=== PATIENT | female | born 1975 | race Caucasian/White ===

== ENCOUNTER 2017-11-30 17:17 | Emergency (ER) | payer MEDICAID, SELFPAY ==
[2017-11-30 17:18] VITALS: BP 129/87; PULSE 127; RESP 17; TEMP 36.7; O2SAT 95; BMI 20.2
--- NOTE | 2017-11-30 17:39 | ED.VISSUMM ---
- ER Visit Summary Date of Service: 11/30/17 Chief Complaint: Left lower tooth pain History of Present Illness: The patient is a 42 F who presents with acute left lower tooth pain that started today. She states she has problems with her teeth. She states her teeth are broken. She does have insurance. She states she recently got insurance. She denies fever, chills night sweats. Denies any ocular, visual auditory symptoms. Denies inability to open or close her mouth completely. She denies change in voice or difficulty swallowing or breathing. She denies a traumatic fever, murmur, SPE, IV drug use to be an immune suppressed. Please read written note for complete detail Physical Examination: Vital signs are marked for an elevated blood pressure 129/87 and heart rate 127. She appears uncomfortable. There is mild swelling near the angle of the mandible on the left. There are numerous teeth that are eroded to the gumline with exposure of the pulp. What I believe is the first left lower molar has inflammatory changes around the tooth with swelling of the gum. There is no fluctuance to suggest a periodontal abscess that would be amenable to drainage. There is no evidence of trismus. There is no evidence of Burak's angina. Trach is midline. There is no stridor. Heart is regular without murmur, gallop or rub. S1 and S2 are normal. Lungs are clear to auscultation with good movement of air bilaterally. Test Results: None are indicated Emergency Department Course and Treatment: Patient received first dose of Naprosyn, [place] and clindamycin. She was given a sheet with dental clinics that would accept her insurance. Treatment Plan: Oral antibiotics and oral analgesics and outpatient dental follow-up Disposition: Discharged home Impression: 1. Dental abscess first left lower molar 2. Multiple dental caries with exposure of pulp This note was generated with [employer] dictation software. It may contain incorrect words, spelling, and punctuation that were not noted in review of the chart prior to signing ED Disposition - Plan for ED Patient: Disposition: Home or Assisted Living Chief Complaint: Dental Instructions: Dental Abscess, ED Cavity Dental Prescriptions: Naproxen [Naprosyn] 500 mg PO BID #20 tab Clindamycin HCl [Cleocin] 300 mg PO Q6H #28 cap Referrals: Care Physician,No Primary [Primary Care Provider] - Additional Instructions: Your prescriptions were electronically transmitted to [facility].
--- NOTE | 2017-11-30 17:44 | ED.DCSUM_ITS ---
- ER Visit Summary Date of Service: 11/30/17 Chief Complaint: Left lower tooth pain History of Present Illness: The patient is a 42 F who presents with acute left lower tooth pain that started today. She states she has problems with her teeth. She states her teeth are broken. She does have insurance. She states she recently got insurance. She denies fever, chills night sweats. Denies any ocular, visual auditory symptoms. Denies inability to open or close her mouth completely. She denies change in voice or difficulty swallowing or breathing. She denies a traumatic fever, murmur, SPE, IV drug use to be an immune suppressed. Please read written note for complete detail Physical Examination: Vital signs are marked for an elevated blood pressure 129/ 87 and heart rate 127. She appears uncomfortable. There is mild swelling near the angle of the mandible on the left. There are numerous teeth that are eroded to the gumline with exposure of the pulp. What I believe is the first left lower molar has inflammatory changes around the tooth with swelling of the gum. There is no fluctuance to suggest a periodontal abscess that would be amenable to drainage. There is no evidence of trismus. There is no evidence of Burak's angina. Trach is midline. There is no stridor. Heart is regular without murmur, gallop or rub. S1 and S2 are normal. Lungs are clear to auscultation with good movement of air bilaterally. Test Results: None are indicated Emergency Department Course and Treatment: Patient received first dose of Naprosyn, [place] and clindamycin. She was given a sheet with dental clinics that would accept her insurance. Treatment Plan: Oral antibiotics and oral analgesics and outpatient dental follow-up Disposition: Discharged home Impression: 1. Dental abscess first left lower molar 2. Multiple dental caries with exposure of pulp This note was generated with [employer] dictation software. It may contain incorrect words, spelling, and punctuation that were not noted in review of the chart prior to signing ED Disposition - Plan for ED Patient: Disposition: Home or Assisted Living Chief Complaint: Dental Instructions: Dental Abscess, ED Cavity Dental Prescriptions: Naproxen [Naprosyn] 500 mg PO BID #20 tab Clindamycin HCl [Cleocin] 300 mg PO Q6H #28 cap Referrals: Care Physician,No Primary [Primary Care Provider] - Additional Instructions: Your prescriptions were electronically transmitted to [facility].
[2017-11-30] MEDS: HYDROcodone Bitartrate/Apap 5/325 Tablet PO ×2 (17:52)
[2017-11-30] MEDS: Naproxen 250 MG Tablet 500 MG PO (17:52)
[2017-11-30] MEDS: Clindamycin HCl 150 MG Capsule 300 MG PO (17:52)
== END 2017-11-30 17:56 | disposition home or self-care (01) ==
PROVIDERS: Emergency Provider Emergency Medicine
DX: K04.7 Periapical abscess without sinus (principal); K02.9 Dental caries, unspecified; K08.89 Other specified disorders of teeth and supporting structures
CPT/HCPCS: 99283

== ENCOUNTER 2019-10-16 18:02 | Emergency (ER) | payer MEDICAID, SELFPAY ==
[2019-10-16 18:03] VITALS: BP 135/95; PULSE 67; RESP 16; TEMP 36.1; O2SAT 100; BMI 19.0
--- NOTE | 2019-10-16 18:30 | EKG12_ITS ---
Test Reason : NUMBNESS/TINGLING Blood Pressure : / mmHG Vent. Rate : 058 BPM Atrial Rate : 058 BPM P-R Int : 114 ms QRS Dur : 098 ms QT Int : 432 ms P-R-T Axes : 024 053 021 degrees QTc Int : 424 ms Sinus bradycardia with sinus arrhythmia Voltage criteria for left ventricular hypertrophy Abnormal ECG Confirmed by ALIDA GARDUNO, MICKEY ([id number]), non linear editor CHARLES VIDAL ([id number]) on 10/18/2019 1:34:23 PM Referred By: BELKIS Confirmed By:MICKEY IRWIN MD
--- NOTE | 2019-10-16 18:30 | CT_ITS ---
STUDY: CT BRAIN WITHOUT CONTRAST REASON FOR EXAM: Female, 43 years old. RLE WEAKNESS/NUMBNESS, RIGHT EYE SWOLLEN SHUT, COLD SYMPTOMS SINCE MIDNIGHT RADIATION DOSAGE (If Supplied By Facility): CTDIvol = ( 44.99 ) mGy, DLP = ( 745.49 ) mGycm TECHNIQUE: Transaxial CT imaging of the brain was performed without administration of intravenous contrast material. Individualized dose optimization techniques were used for this CT. COMPARISON: No relevant priors. FINDINGS: There is significant right facial right and preseptal edema and/or soft tissue hematoma.. Normal calvarium. Globes are intact with no retroconal or intraconal masses Normal size ventricles and extra-axial spaces for the patient''s age. Normal white matter tracts of the cerebral hemispheres. Normal basal ganglia and thalami. Normal brainstem. Normal cerebellum. There is no intracranial hemorrhage. There are no findings of an acute ischemic infarction. There is mucosal thickening and soft tissue obstruction of the bilateral ostiomeatal complexes. There is edema of the turbinates. There is a 1.2 x 1 cm right maxillary sinus mucus retention cyst. CT/Brain/Head without Contrast IMPRESSION: No acute intracerebral pathology significant right facial right preseptal edema and/or soft tissue hematoma.. Pansinusitis Electronically Signed: Moiz Marshall, at 19:52 EDT Tel , Service support ,
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
[2019-10-16 18:56] LABS: Absolute Lymphocyte Count 1.61 X10^3/uL (0.83-4.51); Basophil# 0.03 X10^3/uL; Basophil% 0.5 % (0-1); Eosinophil# 0.15 X10^3/uL; Eosinophils% 2.4 % (0-5); Hematocrit 38.4 % (37-47); Hemoglobin 12.2 g/dL (12.0-15.0); Lymphocyte # 1.61 X10^3/ul (4.0); Lymphocyte % 25.5 % (19-41); Mean Corp Hgb Conc 31.8 g/dL (32-36); Mean Corpuscular Hgb 26.9 pg (27.0-32.0); Mean Corpuscular Volume 84.6 fL (81-99); Mean Platelet Vol. 10.4 fl (6.2-12.0); Monocyte% 7.9 % (0-10); NRBC Flagged by Analyzer 0 % (0-5); Neutrophil # 4.01 X10^3/uL (2.7-7.7); Neutrophil % 63.4 % (47-70); Platelet Count 255 K/mm3 (150-450); RBC Distribution Width SD 49.3 fl (35.1-43.9); Red Blood Count 4.54 M/mm3 (4.2-5.4); White Blood Count 6.3 K/mm3 (4.4-11.0)
[2019-10-16 19:10] LABS: Anion Gap 5 (5-15); BUN 9 mg/dL (7-18); BUN/Creat Ratio 15.3 RATIO (10-20); Calcium,Total 8.6 mg/dL (8.5-10.1); Chloride 106 mmol/L (98-107); Creatinine, Serum 0.59 mg/dL (0.55-1.02); EST Glomerular Filtration Rate 119 mL/min (>60); Est Glom Filt Rate - Afr Amer 144 mL/min (>60); Estimated Creatinine Clearance 111.18 ml/min; Glucose 115 mg/dL (74-106); Potassium 3.6 mmol/L (3.5-5.1); Sodium Level 140 mmol/L (136-145)
== END 2019-10-16 20:30 | disposition home or self-care (01) ==
PROVIDERS: Emergency Provider Emergency Medicine
DX: M21.371 Foot drop, right foot (principal); J06.9 Acute upper respiratory infection, unspecified; H10.31 Unspecified acute conjunctivitis, right eye; H02.841 Edema of right upper eyelid; J32.4 Chronic pansinusitis; F17.200 Nicotine dependence, unspecified, uncomplicated
CPT/HCPCS: 70450; 80048; 85025; 93005; 99285; A4216

== ENCOUNTER 2021-09-06 17:25 | Emergency (ER) | payer MEDICAID, SELFPAY ==
[2021-09-06 17:25] VITALS: BP 127/92; PULSE 85; RESP 16; TEMP 36.8; O2SAT 95; BMI 21.3
--- NOTE | 2021-09-06 17:46 | EDS_ITS ---
HPI <LAURA Moeller - Last Filed: 09/06/21 21:04> History of Present Illness Chief Complaint: Back Narrative Narrative: 45-year-old female presents with lower back pain worse on the left that started 2 days ago. No known injury or inciting event. The pain is localized to her lower back with no radiation to her abdomen or lower extremities. It it worse with movement. She denies weakness, numbness, tingling, saddle anesthesia, or bladder or bowel incontinence. Denies IVDU. No bowel changes or urinary symptoms. No fever, chills, nausea, or vomiting. Denies history of kidney stones. PFSH <LAURA Moeller Last Filed: 09/06/21 21:04> PFSH Home Medications azithromycin 250 mg PO UD #1 box 10/16/19 [Rx Last Taken Unknown] cyclobenzaprine 10 mg PO TID PRN #20 tablet 09/06/21 [Rx Last Taken Unknown] naproxen 500 mg PO BID PRN #20 tab 09/06/21 [Rx Last Taken Unknown] Allergy/AdvReac Type Severity Reaction Status Date / Time clindamycin Allergy Hives Verified 09/06/21 17:28 methadone Allergy Swelling Verified 09/06/21 17:28 Macrobid Allergy Hives Uncoded 09/06/21 17:28 Social History Smoking Status: Current every day smoker tobacco type: cigarettes ROS <LAURA Moeller - Last Filed: 09/06/21 21:04> ROS ED ROS Narrative Constitutional: Negative for fever, chills, malaise. Eyes: Negative for visual change. ENT: Negative for sore throat, ear pain, rhinorrhea. CVS: Negative for palpitations, chest pain, syncope. Respiratory: Negative for shortness of breath, cough, orthopnea. GI: Negative for abdominal pain, nausea, vomiting, diarrhea, constipation, melena, hematochezia. : Negative for dysuria, hematuria or frequency. Neuro: Negative for headache, motor/sensory dysfunction. Skin: Negative for rash, abscess, or wound. Musc: Positive for low back pain. Negative for joint pain, swelling, trauma. Heme: Negative for easy bruising, bleeding, lymphadenopathy. EXAM <LAURA Moeller Last Filed: 09/06/21 21:04> Physical Exam Narrative Exam Narrative: CONST: Patient sitting in bed appears uncomfortable. EYES: Normal inspection. ENT: Normal inspection, moist mucous membranes. NECK: Normal inspection. RESP: No respiratory distress, CTAB. CVS: Regular rate and rhythm, no murmur, no gallop. ABD: Soft and nontender, no guarding or rebound, nondistended, no hepatosplenomegaly. Back: Normal inspection, no CVA tenderness. No midline spinal tenderness, no step offs. TTP bilateral lumbar paraspinals. SKIN: Color normal, no rash, warm, dry, intact. EXTREMITIES: Normal appearance, no pedal edema. 5/5 bilateral hip flexion, knee flexion/extension, and DF/PF. Normal sensation to light touch. 2+ DP pulses. 2+ patellar and ankle reflexes. NEURO: Oriented x4. PSYCH: Normal affect. Const Vital Signs: 09/06/21 17:25 09/06/21 19:25 09/06/21 20:40 Temperature 98.2 F 98.4 F Temperature Source Oral Pulse Rate 85 88 76 Respiratory Rate 16 14 14 Blood Pressure 127/92 H 136/87 H 136/78 H Blood Pressure Mean 103 103 Pulse Ox 95 96 98 Oxygen Delivery Method Room Air Room Air <Dr. Jon Ackerman DO - Last Filed: 09/06/21 21:14> Physical Exam Const Vital Signs: 09/06/21 17:25 09/06/21 19:25 09/06/21 20:40 Temperature 98.2 F 98.4 F Temperature Source Oral Pulse Rate 85 88 76 Respiratory Rate 16 14 14 Blood Pressure 127/92 H 136/87 H 136/78 H Blood Pressure Mean 103 103 Pulse Ox 95 96 98 Oxygen Delivery Method Room Air Room Air [facility] <LAURA Moeller - Last Filed: 09/06/21 21:04> [facility] Narrative Medical decision making narrative: Patient presents with atraumatic lower back pain worse with movement. She appears well and nontoxic. Vital signs are within normal limits. She has reproducible tenderness of bilateral lumbar paraspinals and no midline tenderness. Her abdomen is soft and nontender and there is no CVA tenderness. She denies radiation into her buttock or legs and lower extremity MSPs and reflexes are intact. She has no red flag symptoms concerning for cauda equina syndrome or epidural abscess. Lumbar x-ray show no acute process. Because she was in significant pain a UA was obtained and shows no hematuria or infection. Her history and exam are not consistent with kidney stone either. She had some improvement after Toradol, Norflex, Kenalog and a lidocaine patch. I was going to prescribe her pain medication for home and checked [facility] and she frequently gets Narcan filled. She denies using drugs and states she gives the Narcan to her family. Urine drug screen is positive for THC, meth, and amphetamines. I prescribed ibuprofen and Flexeril and she was given a PCP referral. She was counseled to return for new or worsening symptoms and was discharged in stable condition. Diagnosis 1. Lumbar back pain Lab Data Labs: Laboratory Results - last 24 hr 09/06/21 09/06/21 19:40 19:40 Urine Color Yellow Urine Clarity Clear Urine pH 6.0 Ur Specific [place] 1.015 Urine Protein 15 H Urine Glucose (UA) Normal Urine Ketones Negative Urine Occult Blood Negative Urine Nitrite Negative Urine Bilirubin Negative Urine Urobilinogen 1 H Ur Leukocyte Esterase Negative Urine RBC 0 SEEN Urine WBC 0 SEEN Ur Squamous Epith Cells 0 SEEN Urine Bacteria 0 SEEN Urine Mucus 0 SEEN Urine Opiates Screen NEGATIVE Urine Methadone Screen NEGATIVE Ur Barbiturates Screen NEGATIVE Ur Phencyclidine Scrn NEGATIVE Ur Amphetamines Screen POSITIVE H U Methamphetamin-MDMA POSITIVE H U Benzodiazepines Scrn NEGATIVE Urine Cocaine Screen NEGATIVE U Cannabinoids Screen POSITIVE H Ur Drug Screen Comment Radiography Diagnostic Testing: Clinical Impression(s) from Imaging Studies Lumbar Spine X-Ray 09/06/21 18:26 IMPRESSION: Normal x-ray examination of the lumbar spine. Electronically Signed: Paul Quintanilla MD at 18:46 EST , <Dr. Jon Ackerman, DO - Last Filed: 09/06/21 21:14> [facility] Narrative Medical decision making narrative: Patient was seen and evaluated by the PA. I do agree with her history and physical exam. There is no evidence of cauda equina syndrome and by history she has no traumatic symptom. She states that she woke up with pain in the lower back which has been present for a couple of days. Her abdomen is nontender. Patient has no urinary complaints. Patient was able to ambulate prior to coming to the hospital. He is initially given Norflex, Toradol, and a Lidoderm patch. X-rays were obtained the lumbar spine was on my interpretation show no acute fracture and maintained disc heights. The radiologist does agree. Patient complained of continued pain and was given a dose of Kenalog. After reviewing the medical record does appear to be a history of methadone for which she states she had an allergy to this many years ago after taking 1 dose. She does seem a little guarded about her history but states that she is not an opiate abuser. I do see an [facility] report that she is being prescribed Narcan. She relates that this is for her children and she gives this to them. Apparently they are drug abusers. Given her continued pain I did obtain urine to make sure she did not have any hematuria and the urinalysis is negative. Given the patient's Narcan prescription and continued pain I did obtain a urine drug screen was positive for amphetamines, methamphetamines, cannabinoids. Given this I do not feel comfortable giving her a prescription for narcotics especially with the history of using methadone. She will be given muscle relaxers and anti-inflammatories. She is given return precautions if needed. Lab Data Attestation: I reviewed the patient's lab results. Labs: Laboratory Results - last 24 hr 09/06/21 09/06/21 19:40 19:40 Urine Color Yellow Urine Clarity Clear Urine pH 6.0 Ur Specific [place] 1.015 Urine Protein 15 H Urine Glucose (UA) Normal Urine Ketones Negative Urine Occult Blood Negative Urine Nitrite Negative Urine Bilirubin Negative Urine Urobilinogen 1 H Ur Leukocyte Esterase Negative Urine RBC 0 SEEN Urine WBC 0 SEEN Ur Squamous Epith Cells 0 SEEN Urine Bacteria 0 SEEN Urine Mucus 0 SEEN Urine Opiates Screen NEGATIVE Urine Methadone Screen NEGATIVE Ur Barbiturates Screen NEGATIVE Ur Phencyclidine Scrn NEGATIVE Ur Amphetamines Screen POSITIVE H U Methamphetamin-MDMA POSITIVE H U Benzodiazepines Scrn NEGATIVE Urine Cocaine Screen NEGATIVE U Cannabinoids Screen POSITIVE H Ur Drug Screen Comment Radiography Diagnostic Testing: Clinical Impression(s) from Imaging Studies Lumbar Spine X-Ray 09/06/21 18:26 IMPRESSION: Normal x-ray examination of the lumbar spine. Electronically Signed: Paul Quintanilla MD at 18:46 EST , Discharge Plan Triage Chief Complaint: Back ED Provider: Lula Echevarria Dx/Rx/DC Orders Clinical Impression: Low back pain Instructions: ED Back Sprain/Strain Prescriptions: New cyclobenzaprine 10 mg tablet 10 mg PO TID PRN (Reason: Muscle Spasm) Qty: 20 RF: 0 naproxen 500 mg tablet 500 mg PO BID PRN Qty: 20 RF: 0 No Action azithromycin 250 MG tablet 250 mg PO UD Qty: 1 RF: 0 Primary Care Provider: Care Physician,No Primary Referrals: Care Physician,No Primary [Primary Care Provider] - Activity Restrictions/Additional Instructions: Today you were seen for back pain. The x-rays of your lumbar spine show no abnormalities. We checked your urine to make sure there is no bladder infection and this was negative. You were treated with pain medicine, muscle relaxers, and a steroid injection. This should help decrease your pain and I also prescribed naproxen and Flexeril which is a pain medicine and muscle relaxer for home. You were given a pamphlet with primary care doctors. Please call one of them to schedule follow-up appointment. Come back to the ER for new or worsening symptoms. Disposition Disposition: Home, Self Care Discharge Date/Time: 09/06/21 20:40
[2021-09-06] MEDS: Ketorolac 15 MG/ML Vial IM (17:53)
[2021-09-06] MEDS: Orphenadrine 60 MG/2 ML Ampul IM (17:56)
[2021-09-06] MEDS: Lidocaine 5% Patch 1 PATCH TOPICAL (17:59)
--- NOTE | 2021-09-06 18:15 | CASEMGMT ---
RAJESH LINTON note: RAJESH LINTON to patient room to provide [facility] Healthcare Provider Directory as patient has no PCP listed on record. RAJESH LINTON introduced self and role at [facility]. Patient is alert and oriented, confirms she does not have a PCP. Patient encouraged to review directory and contact provider of choice to establish care. Voices understanding. Patient denies further needs or concerns. RAJESH Pierson CM
--- NOTE | 2021-09-06 18:26 | RAD_ITS ---
STUDY: X-RAY - LUMBAR SPINE REASON FOR EXAM: Female, 45 years old. Injury/Pain TECHNIQUE: 2 view(s) of the lumbar spine were obtained. COMPARISON: None FINDINGS: Normal lumbar lordosis. There is no substantial scoliosis. There is a normal alignment of the vertebrae. Normal vertebral bodies and endplates. Normal disc space heights. The soft tissue structures are unremarkable. RAD/Lumbar Spine 2 or 3 Views IMPRESSION: Normal x-ray examination of the lumbar spine. Electronically Signed: Paul Quintanilla MD at 18:46 EST ,
[2021-09-06 19:25] VITALS: BP 136/87; PULSE 88; RESP 14; O2SAT 96
[2021-09-06 19:47] LABS: Bacteria 0 SEEN /hpf (None Seen); Mucous, Urine 0 SEEN /hpf (<or=2+); Red Blood Cells-Urine 0 SEEN /hpf (0-5); Squamous Epithelial Cells - UA 0 SEEN /hpf (5-10); White Blood Cells 0 SEEN /hpf (0-5)
[2021-09-06 19:48] LABS: Color, Urine Yellow (Yellow); Glucose, Dipstick Normal (Normal); Ketone-Dipstick Negative (Negative); Leukocyte Esterase-Dipstick Negative /ul (Negative); Nitrite-Dipstick Negative (Negative); Occult Blood-Urine Negative /ul (Negative); Protein-Dipstick 15 mg/dl (Negative); Specific Gravity, Urine 1.015 (1.002-1.030); Urine Bilirubin Dipstick Negative (Negative); Urine Clarity Clear (Clear); Urine Urobilinogen 1 mg/dl (Normal)
[2021-09-06] MEDS: Triamcinolone Acetonide 40 MG/ML Vial IM (20:16)
[2021-09-06 20:29] LABS: Amphetamine Urine VISTA POSITIVE (<1000 ng/mL); Barbiturate Urine VISTA NEGATIVE (< 200 ng/mL); Benzodiazepine Urine VISTA NEGATIVE (< 200 ng/mL); Cocaine Urine VISTA NEGATIVE (< 300 ng/mL); Ecstacy Urine VISTA POSITIVE (< 500 ng/mL); Methadone Urine VISTA NEGATIVE (< 300 ng/mL); PCP Urine VISTA NEGATIVE (< 25 ng/mL); THC Urine VISTA POSITIVE (< 50 ng/mL); Vista UDS pH Range 5
[2021-09-06 20:40] VITALS: BP 136/78; PULSE 76; RESP 14; TEMP 36.9; O2SAT 98
== END 2021-09-06 20:40 | disposition home or self-care (01) ==
PROVIDERS: Emergency Provider Physician Assistant; Visit Provider Physician Assistant
DX: M54.50 Low back pain, unspecified (principal); F17.210 Nicotine dependence, cigarettes, uncomplicated
CPT/HCPCS: 72100; 80307; 81001; 96372; 99285

== ENCOUNTER 2021-09-21 17:07 | Inpatient (IN) | payer MEDICAID, SELFPAY ==
[2021-09-21] VITALS (7 sets, daily range): BP systolic 108–150; BP diastolic 75–113; PULSE 93–121; RESP 17–25; TEMP 36.2–39.2; O2SAT 95–100; BMI 19.5; BMI 18.7
--- NOTE | 2021-09-21 17:24 | CT_ITS ---
We are attempting to reach an attending provider to discuss findings. An addendum with communication details will be sent when the communication is complete. STUDY: CT Abdomen And Pelvis W/O Contrast Injection 09/21/2021 7:48 PM REASON FOR EXAM: Female, 45 years old. ABDOMINAL PAIN NAUSEA, FATIGUE, WEAKNESS, DECREASED APPETITE, ELEVATED WBC PT HAVING FENTANYL WITHDRAWAL SMOKER WITH PRIOR LUNG LOBECTOMY TECHNIQUE: Transaxial images were obtained without oral contrast, and without intravenous contrast. Individualized dose optimization techniques were used for this CT. COMPARISON: None. FINDINGS: Multiple bilateral cavitary lesions in the lungs. These are concerning for possible septic emboli given the patient''s history. Partially visualized left pneumothorax. There is hepatomegaly with diffuse hepatic enlargement. Normal gallbladder and extrahepatic biliary system. There is mild splenomegaly. Normal pancreas. Normal bilateral adrenal glands. No acute findings of the right kidney. No acute findings of the left kidney. Normal visualized stomach. Normal small intestine. Stool throughout the colon. There are surgical clips in the region of the appendix consistent with a prior appendectomy. There are no acute findings of the abdominal aorta. Normal inferior vena cava. Subcentimeter mesenteric lymph nodes. There is a Taveras balloon catheter in the urinary bladder. Normal visualized uterus. Normal abdominal wall. Normal osseous structures. IMPRESSION: (NOT LISTED IN ORDER OF SIGNIFICANCE) Multiple bilateral cavitary lesions in the lungs. These are concerning for possible septic emboli given the patient''s history. Partially visualized left pneumothorax. Hepatosplenomegaly. Other findings as above. Electronically Signed: Nawaf Carpio MD at 19:51 EST , CT/Abdomen/Pelvis without Cont
--- NOTE | 2021-09-21 17:24 | EKG12_ITS ---
Test Reason : SUBSTANCE ABUSE Blood Pressure : / mmHG Vent. Rate : 119 BPM Atrial Rate : 119 BPM P-R Int : 144 ms QRS Dur : 084 ms QT Int : 328 ms P-R-T Axes : 058 071 058 degrees QTc Int : 461 ms Sinus tachycardia Nonspecific ST and T wave abnormality Abnormal ECG Confirmed by ALIDA GARDUNO, MICKEY ([id number]), news videotape editor ED BRADLEY ([id number]) on 09/24/2021 10:56:07 AM Referred By: EDILBERTO Confirmed By:MICKEY IRWIN MD
--- NOTE | 2021-09-21 17:26 | EDS_ITS ---
HPI History of Present Illness Chief Complaint: Substance Abuse Narrative Narrative: Patient presents with generalized illness. She feels quite weak, she has not been eating and drinking well recently, apparently she is withdrawing from opiates, last use of fentanyl was 4 days ago. She has abdominal pain, nausea, and chest pain everywhere. PFSH PFSH Home Medications azithromycin 250 mg PO UD #1 box 10/16/19 [Rx Last Taken Unknown] cyclobenzaprine 10 mg PO TID PRN #20 tablet 09/06/21 [Rx Last Taken Unknown] naproxen 500 mg PO BID PRN #20 tab 09/06/21 [Rx Last Taken Unknown] Allergy/AdvReac Type Severity Reaction Status Date / Time clindamycin Allergy Hives Verified 09/21/21 17:10 methadone Allergy Swelling Verified 09/21/21 17:10 Macrobid Allergy Hives Uncoded 09/21/21 17:10 Surgical History S/P lobectomy of lung Social History Smoking Status: Current every day smoker tobacco type: cigarettes ROS ROS ED ROS Narrative Past medical history: Reviewed Medications: Reviewed Social history: As in HPI Review of systems: All systems negative except as indicated General: Patient has subjective fevers. Generalized weakness. Eyes: No visual changes ENT: No upper airway congestion, normal voice Neck: No neck pain Cardiovascular: No chest pain Respiratory: Intermittent cough. Gastrointestinal: Abdominal pain Genitourinary: No dysuria, decreased urinary output Musculoskeletal: Generalized myalgias, generalized arthralgias Skin: No petechiae but does have multiple track frank and old wounds. Neurological: No memory loss, confusion or any focal weakness Hematologic: No easy bleeding or easy bruising EXAM Physical Exam Narrative Exam Narrative: Physical exam General: Patient appears quite ill. She is quite thin and emaciated Head: Normocephalic, Atraumatic Eyes: Conjunctiva not pale. No lesions ENT: Dry mucous membranes Neck: Supple, Nontender, No lymphadenopathy Cardiovascular: Regular tachycardia, I did auscultate in all 4 points and could not appreciate a murmur. Respiratory: No distress, CTA bilaterally Abdomen: Soft, slightly distended with pain throughout the entire abdomen. There is no guarding or rebound. Back: There is diffuse tenderness in the lower thoracic and lumbar region. No step-offs or signs of cellulitis. Extremities: Bilateral arm chronic track frank, left dorsal forearm has 7 cm x 2 cm wound, there is does not appear to be any surrounding cellulitis. Skin: Somewhat ashen, otherwise I do not appreciate any petechiae or any, lesions Neurological: Alert, equal bilateral strength, Normal Sensation, no focal deficits. Psychological: Flat depressed affect Const Vital Signs: 09/21/21 17:08 09/21/21 17:29 09/21/21 18:23 Temperature 97.2 F L 102.5 F H Temperature Source Temporal Rectal Pulse Rate 121 H Respiratory Rate 18 Blood Pressure 111/78 Blood Pressure Mean 89 Pulse Ox 95 Oxygen Delivery Method Room Air Room Air 09/21/21 18:35 09/21/21 19:42 Temperature 102 F H Temperature Source Core Pulse Rate 115 H 93 Respiratory Rate 18 25 H Blood Pressure 125/81 H 150/113 H Blood Pressure Mean 95 125 Pulse Ox 100 100 Oxygen Delivery Method Room Air Room Air [facility] MDM Lab Data Lab results narrative: Patient has some hyponatremia, she is found to have multifocal pneumonia, she may have infection of the spine either discitis or epidural abscess based on her back pain fever and the fact that she may have endocarditis, I did discuss with spine surgery who is willing to see the patient if the MRI would show something in the morning. She will need a PARVIN, she was started on antibiotics. We were unable to get peripheral line so I put a central line see procedure note. As of now her vitals are relatively stable therefore she will be admitted to the PCU which is essentially a stepdown unit and can be observed relatively well. On talk to the hospitalist for admission Labs: Laboratory Results - last 24 hr 09/21/21 09/21/21 09/21/21 18:50 18:50 18:50 WBC 14.8 H RBC 3.08 L Hgb 7.8 L Hct 22.5 L MCV 73.1 L MCH 25.3 L MCHC 34.7 RDW Std Deviation 38.9 RDW Coeff of Golden 15.1 H Plt Count 191 MPV 11.0 Immature Gran % (Auto) 1.400 H Neut % (Auto) 90.0 H Lymph % (Auto) 5.5 L [place] % (Auto) 3.0 Eos % (Auto) 0.0 Baso % (Auto) 0.1 Absolute Neuts (auto) 13.3 H Absolute Lymphs (auto) 0.82 L Nucleated RBC % 0 Platelet Estimate ADEQUATE RBC Morphology N CHROM Hypochromasia 2+ Anisocytosis RARE Microcytosis 1+ Target Cells RARE Schistocytes RARE ESR 80 H PT 17.3 H INR 1.5 APTT 34.6 Sodium 125 L Potassium 3.1 L Chloride 93 L Carbon Dioxide 25.0 Anion Gap 7 BUN 38 H Creatinine 0.73 Estim Creat Clear Calc 88.03 Est GFR (MDRD) Af Amer 110 Est GFR (MDRD) Non-Af 91 BUN/Creatinine Ratio 51.8 H Glucose 92 Lactic Acid Calcium 7.6 L Total Bilirubin 1.40 H AST 165 H ALT 78 H Alkaline Phosphatase 207 H Total Protein 7.0 Albumin 1.4 L Globulin 5.6 H Albumin/Globulin Ratio 0.2 L Urine Color Urine Clarity Urine pH Ur Specific [place] Urine Protein Urine Glucose (UA) Urine Ketones Urine Occult Blood Urine Nitrite Urine Bilirubin Urine Urobilinogen Ur Leukocyte Esterase Urine RBC Urine WBC Ur Squamous Epith Cells Urine Bacteria Hyaline Casts Fine Granular Casts Urine Mucus 09/21/21 09/21/21 18:50 19:00 WBC RBC Hgb Hct MCV MCH MCHC RDW Std Deviation RDW Coeff of [place] Plt Count MPV Immature Gran % (Auto) Neut % (Auto) Lymph % (Auto) [place] % (Auto) Eos % (Auto) Baso % (Auto) Absolute Neuts (auto) Absolute Lymphs (auto) Nucleated RBC % Platelet Estimate RBC Morphology Hypochromasia Anisocytosis Microcytosis Target Cells Schistocytes ESR PT INR APTT Sodium Potassium Chloride Carbon Dioxide Anion Gap BUN Creatinine Estim Creat Clear Calc Est GFR (MDRD) Af Amer Est GFR (MDRD) Non-Af BUN/Creatinine Ratio Glucose Lactic Acid 1.0 Calcium Total Bilirubin AST ALT Alkaline Phosphatase Total Protein Albumin Globulin Albumin/Globulin Ratio Urine Color Yellow Urine Clarity Clear Urine pH 5.0 Ur Specific [place] 1.020 Urine Protein 30 H Urine Glucose (UA) Normal Urine Ketones Negative Urine Occult Blood 250 H Urine Nitrite Negative Urine Bilirubin Negative Urine Urobilinogen 4 H Ur Leukocyte Esterase 25 H Urine RBC 0-5 SEEN Urine WBC 0-5 SEEN Ur Squamous Epith Cells 0 SEEN Urine Bacteria 1+ Hyaline Casts 0-5 SEEN Fine Granular Casts 0-5 SEEN Urine Mucus 0 SEEN Radiography Diagnostic Testing: Clinical Impression(s) from Imaging Studies Chest X-Ray 09/21/21 18:32 IMPRESSION: Multiple bilateral pulmonary nodules. Differential includes diffuse pneumonia versus neoplasm. CT chest can better evaluate. Electronically Signed: Nawaf Carpio MD at 18:59 EST Reading Location ID and State: [facility] / [place] , Service support , X-ray interpreted by me and radiologist shows multiple focal areas which is likely pneumonia. EKG Initial EKG: Comments: Sinus tachycardia with a rate of 119. Normal IN and QTc interval. No ischemic changes. Procedures Other Procedures Procedure(s): Central line Verbal consent was obtained however this is somewhat of an emergent procedure Indication: IV drug abuse with high fever and unable to get a peripheral line Sterile technique was used, I used ultrasound for guidance with a sterile probe. Seldinger technique was used. 1 attempt was made and I was able to pass the guidewire. There was slight ectopy present and I pulled back on the guidewire. Otherwise I was able to place the central line with good return at all ports. Post central line x-ray was grossly normal. Patient tolerated procedure well Critical Care Time Critical care time (excluding procedures): 30-74 minutes and - (Critical care time of 35 minutes, this does not include any procedure, I attest that I spend 35 minutes of critical care time with this patient this includes time at the bedside, time documenting time spent with consultants.) Discharge Plan Triage Chief Complaint: Substance Abuse ED Provider: Romeo Kraus Dx/Rx/DC Orders Clinical Impression: Acute hyponatremia, Multifocal pneumonia, Fever, Back pain Prescriptions: No Action azithromycin 250 MG tablet 250 mg PO UD Qty: 1 RF: 0 cyclobenzaprine 10 mg tablet 10 mg PO TID PRN (Reason: Muscle Spasm) Qty: 20 RF: 0 naproxen 500 mg tablet 500 mg PO BID PRN Qty: 20 RF: 0 Primary Care Provider: Care Physician,No Primary Referrals: Care Physician,No Primary [Primary Care Provider] - Disposition Disposition: Acute Care [facility]
--- NOTE | 2021-09-21 18:32 | RAD_ITS ---
STUDY: X-RAY CHEST REASON FOR EXAM: Female, 45 years old. CHEST PAIN CENTRAL LINE PLACEMENT TECHNIQUE: XR Chest 1 View COMPARISON: 04/06/2013 FINDINGS: Multiple bilateral pulmonary nodules. Right internal jugular line in place. No pneumothorax . Left upper lobe lobectomy changes. Normal size heart. Normal mediastinum and brandon. Normal visualized pulmonary arteries. There is atherosclerotic calcification of the aortic arch with tortuosity. There are diffuse degenerative changes of the visualized thoracic spine. There is degenerative osteoarthritis of the bilateral shoulders. There is no demonstrated abnormality of the visualized soft tissue structures of the upper abdomen. RAD/Chest 1 View (Portable) IMPRESSION: Multiple bilateral pulmonary nodules. Differential includes diffuse pneumonia versus neoplasm. CT chest can better evaluate. Electronically Signed: Nawaf Carpio MD at 18:59 EST ,
[2021-09-21] MEDS: 0.9% Normal Saline 1,000 ML 999 ML IV (18:57)
[2021-09-21] MEDS: Famotidine 200 MG/20 ML MDV 20 MG in 0.9% Normal Saline (Pres. free 8 ML 300 MG IV (19:01)
[2021-09-21 19:10] LABS: Mucous, Urine 0 SEEN /hpf (<or=2+); Squamous Epithelial Cells - UA 0 SEEN /hpf (5-10)
--- NOTE | 2021-09-21 19:10 | ED.RN ---
PT IN CT SCAN, UNABLE TO OBTAIN THIRD SET OF BLOOD CULTURES AND ANTIBIOTICS AT THIS TIME.
[2021-09-21 19:12] LABS: Absolute Lymphocyte Count 0.82 X10^3/uL (0.83-4.51); Absolute Neutrophil Count 13.3 X10^3/uL (2.0-7.7); Basophil# 0.01 X10^3/uL; Basophil% 0.1 % (0-1); Hematocrit 22.5 % (37-47); Hemoglobin 7.8 g/dL (12.0-15.0); Lymphocyte # 0.82 X10^3/ul (0.83-4.51); Lymphocyte % 5.5 % (19-41); Mean Corp Hgb Conc 34.7 g/dL (32-36); Mean Corpuscular Hgb 25.3 pg (27.0-32.0); Mean Corpuscular Volume 73.1 fL (81-99); Monocyte# 0.45 X10^3/uL; NRBC Flagged by Analyzer 0 % (0-5); POSITIVE MORPHOLOGY YES; Platelet Count 191 K/mm3 (150-450); RBC Distribution Width CV 15.1 % (11.6-14.6); RBC Distribution Width SD 38.9 fl (35.1-43.9); Red Blood Count 3.08 M/mm3 (4.2-5.4); White Blood Count 14.8 K/mm3 (4.4-11.0)
[2021-09-21 19:14] LABS: Color, Urine Yellow (Yellow); Glucose, Dipstick Normal (Normal); Ketone-Dipstick Negative (Negative); Leukocyte Esterase-Dipstick 25 /ul (Negative); Nitrite-Dipstick Negative (Negative); Occult Blood-Urine 250 /ul (Negative); Protein-Dipstick 30 mg/dl (Negative); Urine Bilirubin Dipstick Negative (Negative); Urine Clarity Clear (Clear); Urine Urobilinogen 4 mg/dl (Normal)
[2021-09-21 19:14] LABS: Differential Indicated SCAN CRITERIA MET
[2021-09-21 19:23] LABS: Red Blood Cells-Urine 0-5 SEEN /hpf (0-5); White Blood Cells 0-5 SEEN /hpf (0-5)
[2021-09-21 19:24] LABS: Bacteria 1+ /hpf (None Seen); Hyaline Cast 0-5 SEEN /lpf (0-5)
[2021-09-21 19:25] LABS: Fine Granular Cast- Urine 0-5 SEEN /lpf (0-5)
[2021-09-21 19:25] LABS: Erythrocyte Sedimentation Rate 80 mm/hr (0-30); International Normalized Ratio 1.5; Prothrombin Time (Protime)PT. 17.3 SECONDS (11.7-14.9)
[2021-09-21 19:26] LABS: Partial Thromboplast Time 34.6 Seconds (24.1-36.2)
[2021-09-21 19:29] LABS: ALB/GLOB Ratio 0.2 RATIO (0.9-2.4); AST(SGOT) 165 U/L (15-37); Alanine Aminotransfer ALT/SGPT 78 U/L (13-56); Albumin, Serum 1.4 g/dL (3.2-5.0); Alkaline Phosphatase 207 U/L (45-117); Anion Gap 7 (5-15); BUN 38 mg/dL (7-18); BUN/Creat Ratio 51.8 RATIO (10-20); Calcium,Total 7.6 mg/dL (8.5-10.1); Chloride 93 mmol/L (98-107); Creatinine, Serum 0.73 mg/dL (0.55-1.02); EST Glomerular Filtration Rate 91 mL/min (>60); Est Glom Filt Rate - Afr Amer 110 mL/min (>60); Estimated Creatinine Clearance 88.03 ml/min; Globulin 5.6 g/dL (2.2-4.2); Glucose 92 mg/dL (74-106); Potassium 3.1 mmol/L (3.5-5.1); Sodium Level 125 mmol/L (136-145)
[2021-09-21] MEDS: Ketorolac 15 MG/ML Vial IV (19:37)
[2021-09-21] MEDS: HYDROmorphone 1 MG/ML Syringe IV (19:38)
[2021-09-21 19:40] LABS: Anisocytosis RARE; Hypochromasia 2+; Microcytosis 1+; Platelet Estimate ADEQUATE (ADEQ); Red Cell Morphology N CHROM NORMAL (NORM C&C)
[2021-09-21 19:41] LABS: Schistocytes RARE; Target Cells RARE
--- NOTE | 2021-09-21 19:54 | ED.RN ---
ATB STARTED LATE, UNABLE TO OBTAIN PERIPHERAL IV ACCESS. MD INSERTED CENTRAL LINE.
--- NOTE | 2021-09-21 20:07 | CT_ITS ---
STUDY: CT Chest W/O Contrast Injection 09/21/2021 8:45 PM REASON FOR EXAM: Female, 45 years old. ptx Left sided pneumothorax, fentanyl with drawl. Individualized dose optimization techniques were used for this CT. TECHNIQUE: Transaxial imaging was performed withoutIV contrast material. COMPARISON: None. FINDINGS: There are degenerative changes of the shoulders. There is a small left pneumothorax. Left upper lobectomy changes. There are scattered blebs and bullae. This can be seen in pulmonary emphysema. Multiple bilateral cavitary pulmonary lesions. Large cavitary lesion is in the right upper lobe measuring 51mm. Healed right clavicle fracture. Normal heart and pericardium with no evidence for calcifications of the coronary arteries. Normal mediastinum. Normal hilar regions. Normal pulmonary arteries. There is atherosclerotic calcification of the aortic arch with tortuosity and elongation of the aortic arch and descending thoracic aorta. There are multi-level degenerative changes of the thoracic spine. There are no acute findings of the upper abdomen. CT/Chest without Contrast IMPRESSION: Left pneumothorax is less than 10% size. Bilateral cavitary lesions concerning for septic emboli from IV drug abuse. Electronically Signed: Nawaf Carpio MD at 20:48 EST ,
--- NOTE | 2021-09-21 20:31 | PCM.HP.STD ---
HPI - General General Date of Admission: 09/21/21 HPI Narrative XIOMARA HILTON, is a 45 F who presents to the hospital feeling ill and weak. She she is an IV drug user however she has felt so ill that she has not used in the last 4 to 5 days therefore she is outside the window of withdrawal. She is found to be febrile and on imaging was seen to have significant pneumonia. Given her concern for IV drug use of multiple blood cultures were taken and she was started on cefepime and vancomycin in the ER. There was some concern for potential discitis versus epidural abscess however she states that she has chronic back pain and aside from her legs feeling weak she has continued sensation and reflexes. She has fairly malnourished cachectic. In the ER she was found to have a white count of 14.8 with a hemoglobin of 7.8, her calcium is low at 7.6 but adjust accordingly based on her albumin of 1.4. CT of the abdomen demonstrated multiple bilateral cavitary lesions in the lungs that were concerning for septic emboli, there is a partial lead visualized left pneumothorax, she does state that she has had a history of spontaneous pneumothoraces. [facility] Home Medications azithromycin 250 mg PO UD #1 box 10/16/19 [Rx Last Taken Unknown] cyclobenzaprine 10 mg PO TID PRN #20 tablet 09/06/21 [Rx Last Taken Unknown] naproxen 500 mg PO BID PRN #20 tab 09/06/21 [Rx Last Taken Unknown] Allergy/AdvReac Type Severity Reaction Status Date / Time clindamycin Allergy Hives Verified 09/21/21 17:10 methadone Allergy Swelling Verified 09/21/21 17:10 Macrobid Allergy Hives Uncoded 09/21/21 17:10 Family History (Updated 09/21/21 @ 20:[address] Boni Lynne MD) Other Cancer Diabetes Heart disease Surgical History S/P lobectomy of lung Social History Smoking Status: Current every day smoker tobacco type: cigarettes ROS Constitutional Constitutional: Reports chills, fatigue, fever(s), malaise and weakness Eyes Eyes: Denies blurry vision ENT HEENT: Denies headache(s) or nasal discharge Cardiovascular Cardiovascular: Denies chest pain, dyspnea on exertion or syncope Respiratory/Chest Respiratory/Chest: Denies cough, shortness of breath at rest or shortness of breath with exertion Gastrointestinal Gastrointestinal: Denies constipation, diarrhea, nausea or vomiting Genitourinary Genitourinary: Denies dysuria Musculoskeletal Musculoskeletal: Reports back pain Neurologic Neurologic: Denies focal weakness, numbness or tremor(s) Psychiatric Psychiatric: Denies anxiety or depression Vital Signs Vital Signs Vital Signs: 09/21/21 17:08 09/21/21 17:29 09/21/21 18:23 Temperature 97.2 F L 102.5 F H Temperature Source Temporal Rectal Pulse Rate 121 H Respiratory Rate 18 Blood Pressure 111/78 Blood Pressure Mean 89 Pulse Ox 95 Oxygen Delivery Method Room Air Room Air 09/21/21 18:35 09/21/21 19:42 09/21/21 20:06 Temperature 102 F H 102 F H Temperature Source Core Core Pulse Rate 115 H 93 94 Respiratory Rate 18 25 H 17 Blood Pressure 125/81 H 150/113 H 128/88 H Blood Pressure Mean 95 125 101 Pulse Ox 100 100 100 Oxygen Delivery Method Room Air Room Air Room Air Weight Weight: 125 lb Body Mass Index (BMI) 19.5 Physical Exam Const alert and oriented x3 General Appearance: cooperative, ill appearing and frail Nutritional Appearance: cachectic HEENT normocephalic Mouth: dry mucous membranes Eyes PERRL, EOMs intact bilaterally and conjunctivae normal Neck supple and no JVD Resp normal respiratory effort, no retractions and no use of accessory muscles Auscultation: diminished lung sounds; Negative for crackles, rales, rhonchi or wheezes Cardio regular rate, regular rhythm, S1 normal heart sound, S2 normal heart sound and no murmurs GI soft to palpation, non-tender and non-distended; Negative for hepatosplenomegaly Extremity General Extremity: edema; Negative for clubbing or cyanosis Skin no rashes or lesions noted Neuro no focal motor deficits and no sensory deficits noted Psych Appearance: appropriate Mood & Affect: flat affect Results Lab / Micro Data Result Diagrams: 09/21/21 18:50 09/21/21 18:50 Labs: Laboratory Results - last 24 hr 09/21/21 18:50: WBC 14.8 H, RBC 3.08 L, Hgb 7.8 L, Hct 22.5 L, MCV 73.1 L, MCH 25.3 L, MCHC 34.7, RDW Std Deviation 38.9, RDW Coeff of Golden 15.1 H, Plt Count 191, MPV 11.0, Immature Gran % (Auto) 1.400 H, Neut % (Auto) 90.0 H, Lymph % (Auto) 5.5 L, [place] % (Auto) 3.0, Eos % (Auto) 0.0, Baso % (Auto) 0.1, Absolute Neuts (auto) 13.3 H, Absolute Lymphs (auto) 0.82 L, Nucleated RBC % 0, Platelet Estimate ADEQUATE, RBC Morphology N CHROM, Hypochromasia 2+, Anisocytosis RARE, Microcytosis 1+, Target Cells RARE, Schistocytes RARE, ESR 80 H 09/21/21 18:50: PT 17.3 H, INR 1.5, APTT 34.6 09/21/21 18:50: Sodium 125 L, Potassium 3.1 L, Chloride 93 L, Carbon Dioxide 25.0, Anion Gap 7, BUN 38 H, Creatinine 0.73, Estim Creat Clear Calc 88.03, Est GFR (MDRD) Af Amer 110, Est GFR (MDRD) Non-Af 91, BUN/Creatinine Ratio 51.8 H, Glucose 92, Calcium 7.6 L, Total Bilirubin 1.40 H, AST 165 H, ALT 78 H, Alkaline Phosphatase 207 H, Total Protein 7.0, Albumin 1.4 L, Globulin 5.6 H, Albumin/Globulin Ratio 0.2 L 09/21/21 18:50: Lactic Acid 1.0 09/21/21 19:00: Urine Color Yellow, Urine Clarity Clear, Urine pH 5.0, Ur Specific [place] 1.020, Urine Protein 30 H, Urine Glucose (UA) Normal, Urine Ketones Negative, Urine Occult Blood 250 H, Urine Nitrite Negative, Urine Bilirubin Negative, Urine Urobilinogen 4 H, Ur Leukocyte Esterase 25 H, Urine RBC 0-5 SEEN, Urine WBC 0-5 SEEN, Ur Squamous Epith Cells 0 SEEN, Urine Bacteria 1+, Hyaline Casts 0-5 SEEN, Fine Granular Casts 0-5 SEEN, Urine Mucus 0 SEEN Radiology Impression Abdomen/Pelvis CT 09/21/21 17:24 ADDENDUM: 09/21/212006 Chest X-Ray 09/21/21 18:32 IMPRESSION: Multiple bilateral pulmonary nodules. Differential includes diffuse pneumonia versus neoplasm. CT chest can better evaluate. Electronically Signed: Nawaf Carpio MD at 18:59 EST , Assessment & Plan Assessment/Plan (1) Multifocal pneumonia: PLAN: 1. Multifocal pneumonia with cavitary lesions ?Blood cultures are pending ?Continue with cefepime and vancomycin ?We will try to obtain sputum cultures, radiologist is reading him as septic emboli given the fact that they look like they are cavitary lesions ?Given her IV drug use and the appearance of these lesions, will also obtain an HIV test ?We will start her on IV fluids, CT scan of the chest on my read, does not show significant pneumothorax at all looks contained consistent with a prior lobectomy and likely pleurodesis ?We will await blood cultures to getting an MRI of her low back or an echo/PARVIN secondary to the fact that did not have a murmur on exam and her back pain is chronic and does not appear any worse. There is no redness overlying it in the midline to be concern for an epidural abscess and aside from generalized weakness she does not have any other concerning neurological findings. If blood cultures do come back positive then I do think it is worth completeness sake obtaining an MRI or an echo ?Given her cavitary lesions, will consult pulmonary medicine for assistance 2. IV drug use/tobacco abuse ?Last use was 4 to 5 days ago so not placed on any protocol ?We will obtain a hepatitis panel as well as an HIV panel ?Discussed tobacco cessation, she does not want a nicotine patch at this time DVT: Lovenox Charges/Coding Visit Charges Inpatient E&M: 57489 Init Hosp L3
--- NOTE | 2021-09-21 20:36 | ED.RN ---
PT STATES SHE IS HAVING DIFFICULTY WALKING, STATES LEGS AREN'T WORKING RIGHT. COMPLAINS OF BACK PAIN, MD AWARE.
[2021-09-21] MEDS: 0.9% Normal Saline 1,000 ML 100 ML IV (21:28)
[2021-09-21] MEDS: Potassium Chloride Oral Tablet 20 MEQ 40 MEQ PO (21:29)
--- NOTE | 2021-09-21 21:29 | PCM.RX.CS ---
Consult Pharmacy has been consulted to manage selected antiobiotic: Vancomycin Type of Consult: New start Suspected Infection: Pneumonia Prior Doses of Antibiotics Received/Current Regimen: Medications Vancomycin HCl (Vancomycin) 1,000 mg in 200 mls @ 200 mls/hr IV Q12H YAJAIRA Discontinued Medications Vancomycin HCl 750 mg/ Sodium (Chloride) 265 mls @ 250 mls/hr IV X1 ONE Stop: 09/21/21 18:39 Last Admin: 09/21/21 19:53 Dose: 250 mls/hr Documented by: Labs: Sodium 125 mmol/L (136-145) L 09/21/21 18:50 Potassium 3.1 mmol/L (3.5-5.1) L 09/21/21 18:50 Chloride 93 mmol/L (98-107) L 09/21/21 18:50 Carbon Dioxide 25.0 mmol/L (21.0-32.0) 09/21/21 18:50 Anion Gap 7 (5-15) 09/21/21 18:50 BUN 38 mg/dL (7-18) H 09/21/21 18:50 Creatinine 0.73 mg/dL (0.55-1.02) 09/21/21 18:50 Est GFR (MDRD) Af Amer 110 mL/min (>60) 09/21/21 18:50 Est GFR (MDRD) Non-Af 91 mL/min (>60) 09/21/21 18:50 BUN/Creatinine Ratio 51.8 RATIO (10-20) H 09/21/21 18:50 Glucose 92 mg/dL (74-106) 09/21/21 18:50 Weight used for dosin.3 kg Estimated Creatinine Clearance: 88 Goal Trough: 15-20 mcg/mL Pharmacy Plan for Drug Dosing: Pharmacy Service will continue to monitor and adjust dosing as required. Follow-Up Labs: Trough Vancomycin Labs to be done on [date and time ordered]: 09/23/21 @9181
[2021-09-21] MEDS: Acetaminophen 325 MG Tablet 650 MG PO (21:42)
[2021-09-21 22:06] LABS: HIV - WCH Non-Reactive (Nonreactive)
[2021-09-22] VITALS (14 sets, daily range): BP systolic 98–116; BP diastolic 67–81; PULSE 90–105; RESP 14–24; TEMP 36.4–36.8; O2SAT 96–100
--- NOTE | 2021-09-22 05:28 | ECHOD_ITS ---
Reason For Study: Eval for vegetations Left Ventricle Normal LV size. Left ventricular systolic function is normal. The estimated ejection fraction is 55 %. No regional wall motion abnormalities noted. Right Ventricle Normal RV size. Normal systolic function. Atria Normal left atrium. Normal right atrium. Mitral Valve Normal mitral valve. Trivial eccentric mitral valve insufficiency. Tricuspid Valve Normal tricuspid valve. Multiple vegetations noted on the tricuspid valve measuring 1.5 x 0.3 cm and 1.2 x 1.0 cm. Mild (1+) tricuspid valve insufficiency. Pulmonary artery systolic pressure is 35 mmHg. Aortic Valve Normal aortic valve. Trisinus/trileaflet aortic valve. Pulmonic Valve Normal pulmonic valve. Great Vessels Normal aortic root. The pulmonary artery is normal size. Normal inferior vena cava. Pericardium/Pleural No pericardial effusion. MMode/2D Measurements & Calculations LVIDd: 4.7 cm IVSd: 0.79 cm Ao root diam: 3.2 cm LVIDs: 3.3 cm LVPWd: 0.92 cm FS: 29.5 % LAV(MOD-bp): 28.4 ml LVAd ap4: 24.9 cm2 SV(MOD-sp4): 42.9 ml LAV(MOD-bp) Indexed: 17.1 ml/m2 LVLd ap4: 7.7 cm LAV(MOD-sp2): 34.2 ml EDV(MOD-sp4): 68.2 ml LAV(MOD-sp4): 21.3 ml EDV(sp4-el): 68.9 ml LVAs ap4: 13.4 cm2 LVLs ap4: 6.1 cm ESV(MOD-sp4): 25.3 ml ESV(sp4-el): 25.1 ml EF(MOD-sp4): 62.9 % EF(sp4-el): 63.6 % SV(sp4-el): 43.8 ml LA dimension(2D): 3.1 cm LA A4 area: 9.7 cm2 RA A4 area: 14.3 cm2 Doppler Measurements & Calculations MV E max vahe: 82.3 cm/sec Lat Peak E' Vahe: 14.1 cm/sec Med Peak E' Vahe: 11.7 cm/sec MV A max vahe: 69.8 cm/sec E/E' lat: 5.8 E/E' med: 7.0 MV E/A: 1.2 Ao V2 max: 141.8 cm/sec LV V1 max: 114.0 cm/sec PA V2 max: 98.4 cm/sec Ao max P.0 mmHg LV V1 max P.2 mmHg Ao V2 mean: 96.6 cm/sec Ao mean P.1 mmHg Ao V2 VTI: 24.8 cm TR max vahe: 276.9 cm/sec TR max P.7 mmHg ECHO/Echo Complete Interpretation Summary Normal LV size. Left ventricular systolic function is normal. The estimated ejection fraction is 55 %. Multiple vegetations noted on the tricuspid valve measuring 1.5 x 0.3 cm and 1. 2 x 1.0 cm Pulmonary artery systolic pressure is 35 mmHg. Above consistent with endocarditis Ordering Physician: Boni Lynne Performed By: Rebecca Robison, RDCS, RVT
--- NOTE | 2021-09-22 05:55 | MRI_ITS ---
ACR Level 3 findings have been noted. An addendum which confirms receipt of the report will follow. STUDY: MRI LUMBAR SPINE WITH AND WITHOUT CONTRAST REASON FOR EXAM: Female, 45 years old. Back pain with IVDU and gm possitive bacteremia -- Per - change to w/o and [id number] drug use TECHNIQUE: Standardized fat and water weighted pulse sequences were obtained in the sagittal and axial planes. 10ml Dotarem via central line was administered for the contrast portion of the examination. COMPARISON: CT of abdomen and pelvis dated September 21, 2021. X-ray of the lumbar spine dated September 06, 2021 FINDINGS: T12-L1: Normal endplates. Normal disc height, hydration and morphology. Normal bilateral facet joints. Normal central canal and bilateral lateral recesses. Normal bilateral intervertebral neural foramina. Normal lumbar lordosis. There is no substantial scoliosis. Normal conus medullaris that terminates at the T12-L1 level. No fracture or compression deformity is present. L1-2: Normal endplates. Normal disc height, hydration and morphology. Normal bilateral facet joints. Normal central canal and bilateral lateral recesses. Normal bilateral intervertebral neural foramina. L2-3: Normal endplates. Normal disc height, hydration and morphology. Normal bilateral facet joints. Normal central canal and bilateral lateral recesses. Normal bilateral intervertebral neural foramina. L3-4: Normal endplates. Normal disc height, hydration and morphology. Normal bilateral facet joints. Normal central canal and bilateral lateral recesses. Normal bilateral intervertebral neural foramina. L4-5: Normal endplates. Normal disc height, hydration and morphology. Normal bilateral facet joints. Normal central canal and bilateral lateral recesses. Normal bilateral intervertebral neural foramina. L5-S1: Intradiscal edema and mild enhancement anteriorly with associated mild cortical erosion of the overlying anterior aspects of the L5 and S1 endplates are all findings of active discitis and mild vertebral osteomyelitis. Reactive enhancement is demonstrated on the postcontrast portion of the study. No epidural or paraspinal abscesses are seen. Mild to moderate disc space narrowing and posterior annular bulging also noted. Normal bilateral facet joints. Normal central canal and bilateral lateral recesses. Normal bilateral intervertebral neural foramina. Normal visualized sacral ala. Normal visualized paraspinous soft tissue structures. IMPRESSION: L5-S1 vertebral osteomyelitis/discitis 1. L5-S1 Intradiscal edema and mild enhancement anteriorly with associated mild cortical erosion of the overlying anterior aspects of the L5 and S1 endplates are all findings of active discitis and mild vertebral osteomyelitis. Reactive enhancement is demonstrated on the postcontrast portion of the study. 2. No epidural or paraspinal abscesses are seen. Electronically Signed: Felix Mckeon MD at 11:01 EST , MRI/Spine Lumbar W/WO Contrast
[2021-09-22] MEDS: Acetaminophen 325 MG Tablet 650 MG PO (06:02)
[2021-09-22 06:09] LABS: Absolute Lymphocyte Count 0.63 X10^3/uL (0.83-4.51); Absolute Neutrophil Count 8.7 X10^3/uL (2.0-7.7); Basophil# 0.01 X10^3/uL; Basophil% 0.1 % (0-1); Hematocrit 22.8 % (37-47); Hemoglobin 7.7 g/dL (12.0-15.0); Lymphocyte # 0.63 X10^3/ul (0.83-4.51); Lymphocyte % 6.5 % (19-41); Mean Corp Hgb Conc 33.8 g/dL (32-36); Mean Corpuscular Hgb 24.7 pg (27.0-32.0); Mean Corpuscular Volume 73.1 fL (81-99); Mean Platelet Vol. 10.9 fl (6.2-12.0); Monocyte# 0.24 X10^3/uL; Monocyte% 2.5 % (0-10); NRBC Flagged by Analyzer 0 % (0-5); Neutrophil # 8.68 X10^3/uL (2.7-7.7); Neutrophil % 90.1 % (47-70); Platelet Count 160 K/mm3 (150-450); RBC Distribution Width CV 15.8 % (11.6-14.6); RBC Distribution Width SD 40.2 fl (35.1-43.9); Red Blood Count 3.12 M/mm3 (4.2-5.4); White Blood Count 9.6 K/mm3 (4.4-11.0)
[2021-09-22 06:40] LABS: Anion Gap 6 (5-15); BUN 43 mg/dL (7-18); Calcium,Total 7.1 mg/dL (8.5-10.1); Chloride 100 mmol/L (98-107); Creatinine, Serum 0.68 mg/dL (0.55-1.02); EST Glomerular Filtration Rate 99 mL/min (>60); Est Glom Filt Rate - Afr Amer 120 mL/min (>60); Glucose 97 mg/dL (74-106); Potassium 3.5 mmol/L (3.5-5.1); Sodium Level 129 mmol/L (136-145)
--- NOTE | 2021-09-22 08:08 | EX.PCM.CONCC ---
Assessment & Plan Assessment/Plan (1) Multifocal pneumonia: (2) Acute hyponatremia: (3) Active intravenous drug use: PLAN: RECOMMENDATIONS: 1. Obtain echocardiogram for endocarditis 2. Continue empiric antibiotics pending culture results 3. Agree with as needed bronchodilators 4. Wound care to evaluate left arm 5. Defer to hospitalist on withdrawal IMPRESSIONS: 1. Acute respiratory insufficiency secondary to embolic pneumonia Patient with multiple abscesses throughout the lungs with air-fluid levels. This is superimposed on some emphysematous changes, likely secondary to COPD but this cannot be confirmed. It is unclear if previous pneumothoraces were related to abscess or not, but some of these are peripherally located. Cannot exclude progression to a pneumothorax. Would obtain a chest x-ray if patient develops acute worsening in symptoms. Clinical impression is for staph aureus as this tends to cavitate. Patient should continue on IV antibiotics. Echocardiogram will be important to evaluate for vegetations. Cannot exclude the need for transfer to a tertiary center pending echocardiogram results. As needed bronchodilators are sufficient for now. If patient starts to require supplemental oxygen, steroids can be given, but patient would benefit from antibiotics initially. 2. 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 Patient is thin, but this may be secondary to IV drug use. Cannot exclude an underlying malignancy and this will need to be followed up as an outpatient. Patient may benefit from fluid restriction. 3. Hepatitis Patient with elevation of liver enzymes, elevated INR and low albumin. Patient may have an element of malnutrition. We will need to watch closely for refeeding syndrome. Hepatitis panel is already been sent. Patient does not appear to be in acute hepatic failure. HPI Consult Data Date of Consult: 09/22/21 HPI Narrative HPI Narrative: XIOMARA HILTON is a 45 F, with a past medical history of multiple spontaneous pneumothoraces status post lobectomy, who presents to [facility] on 09/21/2021 secondary to generalized weakness, anorexia and potential withdrawal. Patient had had abdominal pain, nausea and chest pain. Patient is a known IV drug user and has felt so poorly that she has actually not used in 4 to 5 days. In the ER, patient was febrile to 102.5 ?F, but normotensive. Patient was tachycardic and tolerating room air. Laboratory work-up showed a white blood cell count of 14.8, hemoglobin of 7.8 and a platelet count of 191. INR was slightly elevated at 1.5. Potassium was low at 3.1, sodium 125 and creatinine of 0.7. Liver enzymes were slightly elevated, but albumin was 1.4. Lactate was within normal limits and UA was relatively unremarkable. Chest x-ray showed multiple pulmonary nodules. Patient subsequently had a CTA of the chest showing multiple cavities with air-fluid levels in both lungs. There was some concern for IV access, so patient did have a central line placed in the ER. Patient was admitted to the PCU for further evaluation. Since being admitted, patient reports she is subjectively unchanged compared to previous. Patient continues to report generalized body aches. Patient states her pain has not changed compared to previous. No nausea or vomiting has been reported, but patient feels weak to get out of bed. Patient does report a long history of smoking in the past, but has never had a pulmonary function test. Patient states she has been seen by student success advisor in [place] following her spontaneous pneumothorax. Patient did have a lobectomy in the past which she states fixed the problem. Patient states that she does have some shortness of breath, but mainly feels this is secondary to an inability to breathe deep secondary to chest pains. Patient does have a lesion on her left arm. Patient states that is been there for almost a year. Patient has not seen wound care previously. Patient readily admits that she is let herself go because of her drug issue. Review of systems otherwise negative from a constitutional, HEENT, respiratory, cardiovascular, GI, genitourinary, musculoskeletal, skin, neurologic, psychiatric and hematologic system unless stated above. PFS Home Medications azithromycin 250 mg PO UD #1 box 10/16/19 [Rx Last Taken Unknown] cyclobenzaprine 10 mg PO TID PRN #20 tablet 09/06/21 [Rx Last Taken Unknown] naproxen 500 mg PO BID PRN #20 tab 09/06/21 [Rx Last Taken Unknown] Allergy/AdvReac Type Severity Reaction Status Date / Time clindamycin Allergy Hives Verified 09/21/21 17:10 methadone Allergy Swelling Verified 09/21/21 17:10 nitrofurantoin Allergy Hives Verified 09/21/21 21:13 [From Macrobid] Family History Other Cancer Diabetes Heart disease Surgical History S/P lobectomy of lung Social History Smoking Status: Current every day smoker tobacco type: cigarettes ROS ROS Narrative See HPI Physical Exam Const alert and oriented x3 General Appearance: cooperative, ill appearing and frail Nutritional Appearance: cachectic HEENT normocephalic Mouth: dry mucous membranes Eyes PERRL, EOMs intact bilaterally and conjunctivae normal Neck supple and no JVD Chest inspection of chest normal Chest: symmetrical chest wall rise; Negative for crepitus Resp normal respiratory effort, no retractions and no use of accessory muscles Auscultation: diminished lung sounds; Negative for crackles, rales, rhonchi or wheezes Cardio regular rate, regular rhythm, S1 normal heart sound and S2 normal heart sound Cardio Narrative: Questionable grade 2 systolic ejection murmur at the left lower sternal border GI soft to palpation, non-tender and non-distended; Negative for hepatosplenomegaly Extremity General Extremity: edema; Negative for clubbing or cyanosis Skin Skin Narrative: Large 2 cm granulomatous scab with surrounding erythema noted on the dorsal aspect of the left upper extremity Neuro no focal motor deficits and no sensory deficits noted Psych Appearance: appropriate Mood & Affect: flat affect Lab / Micro Data Result Diagrams: 09/22/21 05:53 09/22/21 05:53 Labs: Laboratory Results - last 24 hr 09/21/21 18:50: WBC 14.8 H, RBC 3.08 L, Hgb 7.8 L, Hct 22.5 L, MCV 73.1 L, MCH 25.3 L, MCHC 34.7, RDW Std Deviation 38.9, RDW Coeff of Golden 15.1 H, Plt Count 191, MPV 11.0, Immature Gran % (Auto) 1.400 H, Neut % (Auto) 90.0 H, Lymph % (Auto) 5.5 L, [place] % (Auto) 3.0, Eos % (Auto) 0.0, Baso % (Auto) 0.1, Absolute Neuts (auto) 13.3 H, Absolute Lymphs (auto) 0.82 L, Nucleated RBC % 0, Platelet Estimate ADEQUATE, RBC Morphology N CHROM, Hypochromasia 2+, Anisocytosis RARE, Microcytosis 1+, Target Cells RARE, Schistocytes RARE, ESR 80 H 09/21/21 18:50: PT 17.3 H, INR 1.5, APTT 34.6 09/21/21 18:50: Sodium 125 L, Potassium 3.1 L, Chloride 93 L, Carbon Dioxide 25.0, Anion Gap 7, BUN 38 H, Creatinine 0.73, Estim Creat Clear Calc 88.03, Est GFR (MDRD) Af Amer 110, Est GFR (MDRD) Non-Af 91, BUN/Creatinine Ratio 51.8 H, Glucose 92, Calcium 7.6 L, Total Bilirubin 1.40 H, AST 165 H, ALT 78 H, Alkaline Phosphatase 207 H, Total Protein 7.0, Albumin 1.4 L, Globulin 5.6 H, Albumin/Globulin Ratio 0.2 L 09/21/21 18:50: Lactic Acid 1.0 09/21/21 18:50: HIV 1&2 Antibody Non-Reactive 09/21/21 19:00: Urine Color Yellow, Urine Clarity Clear, Urine pH 5.0, Ur Specific [place] 1.020, Urine Protein 30 H, Urine Glucose (UA) Normal, Urine Ketones Negative, Urine Occult Blood 250 H, Urine Nitrite Negative, Urine Bilirubin Negative, Urine Urobilinogen 4 H, Ur Leukocyte Esterase 25 H, Urine RBC 0-5 SEEN, Urine WBC 0-5 SEEN, Ur Squamous Epith Cells 0 SEEN, Urine Bacteria 1+, Hyaline Casts 0-5 SEEN, Fine Granular Casts 0-5 SEEN, Urine Mucus 0 SEEN 09/21/21 20:08: COVID-19 (JUSTUS) Not Detected 09/22/21 05:53: WBC 9.6, RBC 3.12 L, Hgb 7.7 L, Hct 22.8 L, MCV 73.1 L, MCH 24.7 L, MCHC 33.8, RDW Std Deviation 40.2, RDW Coeff of Golden 15.8 H, Plt Count 160, MPV 10.9, Immature Gran % (Auto) 0.800, Neut % (Auto) 90.1 H, Lymph % (Auto) 6.5 L, [place] % (Auto) 2.5, Eos % (Auto) 0.0, Baso % (Auto) 0.1, Absolute Neuts (auto) 8.7 H, Absolute Lymphs (auto) 0.63 L, Nucleated RBC % 0 09/22/21 05:53: Sodium 129 L, Potassium 3.5, Chloride 100, Carbon Dioxide 23.0, Anion Gap 6, BUN 43 H, Creatinine 0.68, Estim Creat Clear Calc 90.50, Est GFR (MDRD) Af Amer 120, Est GFR (MDRD) Non-Af 99, BUN/Creatinine Ratio 63.0 H, Glucose 97, Calcium 7.1 L Micro: Microbiology 09/21/21 18:50 Blood Culture (Wb) - Left Wrist Blood Culture - Preliminary 09/21/21 18:50 Blood Culture (Wb) - Neck Blood Culture - Preliminary 09/21/21 19:23 Blood Culture (Wb) - Chest Blood Culture - Preliminary Radiology Impression Abdomen/Pelvis CT 09/21/21 17:24 ADDENDUM: 09/21/212006 ADDENDUM: 09/21/212056 Chest X-Ray 09/21/21 18:32 IMPRESSION: Multiple bilateral pulmonary nodules. Differential includes diffuse pneumonia versus neoplasm. CT chest can better evaluate. Electronically Signed: Nawaf Carpio MD at 18:59 EST , Chest CT 09/21/21 20:07 IMPRESSION: Left pneumothorax is less than 10% size. Bilateral cavitary lesions concerning for septic emboli from IV drug abuse. Electronically Signed: Nawaf Carpio MD at 20:48 EST , Charges/Coding Visit Charges Inpatient E&M: 41748 Init Hosp L3
[2021-09-22] MEDS: Vancomycin IV 1,000 MG/200 ML BAG 200 MG IV ×2 (08:31→20:17)
[2021-09-22] MEDS: 0.9% Normal Saline 1,000 ML 100 ML IV ×2 (08:32→22:16)
[2021-09-22] MEDS: Enoxaparin 40 MG/0.4 ML Syringe SC (08:33)
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
--- NOTE | 2021-09-22 11:18 | PCM.PN.HOSP ---
Subjective Subjective Follow-up on MRSA bacteremia/septic emboli pneumonia/IV drug use/endocarditis/discitis/vertebral osteomyelitis: Patient was seen and examined. She complains of having pain everywhere. She appears to be withdrawing from opioids. She denied any fever or chills. She was started on the opioid withdrawal protocol. Objective Data Objective Data Vital Signs: Vital Signs Temp Pulse Resp BP Pulse Ox 97.5 F L 93 20 H 110/81 H 98 09/22/21 08:15 09/22/21 08:15 09/22/21 08:15 09/22/21 08:15 09/22/21 08:15 Oxygen Delivery Method Room Air Weight: 54.3 kg Body Mass Index (BMI) 18.7 Intake & Output: Intake and Output for Last 24 Hours 09/20/21 09/21/21 09/22/21 23:59 23:59 23:59 Intake Total 1475 / 1475 1336.67 / 1336.67 Output Total 250 / 250 400 / 400 Balance 1225 / 1225 936.67 / 936.67 Lab / Micro Data Result Diagrams: 09/22/21 05:53 09/22/21 05:53 Labs: Laboratory Results - last 24 hr 09/21/21 18:50: WBC 14.8 H, RBC 3.08 L, Hgb 7.8 L, Hct 22.5 L, MCV 73.1 L, MCH 25.3 L, MCHC 34.7, RDW Std Deviation 38.9, RDW Coeff of Golden 15.1 H, Plt Count 191, MPV 11.0, Immature Gran % (Auto) 1.400 H, Neut % (Auto) 90.0 H, Lymph % (Auto) 5.5 L, [place] % (Auto) 3.0, Eos % (Auto) 0.0, Baso % (Auto) 0.1, Absolute Neuts (auto) 13.3 H, Absolute Lymphs (auto) 0.82 L, Nucleated RBC % 0, Platelet Estimate ADEQUATE, RBC Morphology N CHROM, Hypochromasia 2+, Anisocytosis RARE, Microcytosis 1+, Target Cells RARE, Schistocytes RARE, ESR 80 H 09/21/21 18:50: PT 17.3 H, INR 1.5, APTT 34.6 09/21/21 18:50: Sodium 125 L, Potassium 3.1 L, Chloride 93 L, Carbon Dioxide 25.0, Anion Gap 7, BUN 38 H, Creatinine 0.73, Estim Creat Clear Calc 88.03, Est GFR (MDRD) Af Amer 110, Est GFR (MDRD) Non-Af 91, BUN/Creatinine Ratio 51.8 H, Glucose 92, Calcium 7.6 L, Total Bilirubin 1.40 H, AST 165 H, ALT 78 H, Alkaline Phosphatase 207 H, Total Protein 7.0, Albumin 1.4 L, Globulin 5.6 H, Albumin/Globulin Ratio 0.2 L 09/21/21 18:50: Lactic Acid 1.0 09/21/21 18:50: HIV 1&2 Antibody Non-Reactive 09/21/21 19:00: Urine Color Yellow, Urine Clarity Clear, Urine pH 5.0, Ur Specific [place] 1.020, Urine Protein 30 H, Urine Glucose (UA) Normal, Urine Ketones Negative, Urine Occult Blood 250 H, Urine Nitrite Negative, Urine Bilirubin Negative, Urine Urobilinogen 4 H, Ur Leukocyte Esterase 25 H, Urine RBC 0-5 SEEN, Urine WBC 0-5 SEEN, Ur Squamous Epith Cells 0 SEEN, Urine Bacteria 1+, Hyaline Casts 0-5 SEEN, Fine Granular Casts 0-5 SEEN, Urine Mucus 0 SEEN 09/21/21 20:08: COVID-19 (JUSTUS) Not Detected 09/22/21 05:53: WBC 9.6, RBC 3.12 L, Hgb 7.7 L, Hct 22.8 L, MCV 73.1 L, MCH 24.7 L, MCHC 33.8, RDW Std Deviation 40.2, RDW Coeff of Golden 15.8 H, Plt Count 160, MPV 10.9, Immature Gran % (Auto) 0.800, Neut % (Auto) 90.1 H, Lymph % (Auto) 6.5 L, [place] % (Auto) 2.5, Eos % (Auto) 0.0, Baso % (Auto) 0.1, Absolute Neuts (auto) 8.7 H, Absolute Lymphs (auto) 0.63 L, Nucleated RBC % 0 09/22/21 05:53: Sodium 129 L, Potassium 3.5, Chloride 100, Carbon Dioxide 23.0, Anion Gap 6, BUN 43 H, Creatinine 0.68, Estim Creat Clear Calc 90.50, Est GFR (MDRD) Af Amer 120, Est GFR (MDRD) Non-Af 99, BUN/Creatinine Ratio 63.0 H, Glucose 97, Calcium 7.1 L Micro: Microbiology 09/21/21 19:00 Urine Catheter - Catheter Urine Culture - Preliminary Staphylococcus aureus 09/21/21 19:23 Blood Culture (Wb) - Chest Bacteria Detection (PCR) - Final Meth. resistant Staph. aureus 09/21/21 19:23 Blood Culture (Wb) - Chest Blood Culture - Preliminary 09/21/21 18:50 Blood Culture (Wb) - Left Wrist Blood Culture - Preliminary 09/21/21 18:50 Blood Culture (Wb) - Neck Blood Culture - Preliminary Radiography Diagnostic Testing: Radiology Impression Abdomen/Pelvis CT 09/21/21 17:24 ADDENDUM: 09/21/212006 ADDENDUM: 09/21/212056 Chest X-Ray 09/21/21 18:32 IMPRESSION: Multiple bilateral pulmonary nodules. Differential includes diffuse pneumonia versus neoplasm. CT chest can better evaluate. Electronically Signed: Nawaf Carpio MD at 18:59 EST , Chest CT 09/21/21 20:07 IMPRESSION: Left pneumothorax is less than 10% size. Bilateral cavitary lesions concerning for septic emboli from IV drug abuse. Electronically Signed: Nawaf Carpio MD at 20:48 EST , Lumbar Spine MRI 09/22/21 05:55 Physical Exam Narrative Physical exam: General: Alert, Oriented x3, Cooperative, No apparent distress, appears very cachectic HEENT: Atraumatic Oral: Moist Mucosa Neck: Supple Lungs: Diminished to auscultation Cardiovascular: HS I+II, regular, no murmurs Abdomen: Bowel Sounds Present, Soft, Non Tender Extremities: No edema Assessment & Plan Assessment/Plan (1) Active intravenous drug use: (2) Acute hyponatremia: (3) Multifocal pneumonia: (4) Vertebral osteomyelitis, acute: (5) Discitis: QUALIFIERS: Spinal region: lumbar Qualified Code(s): M46.46 - Discitis, unspecified, lumbar region PLAN: 1. Acute MRSA bacteremia/septic emboli/acute discitis/vertebral osteomyelitis/endocarditis Patient is an IV drug user CT of the abdomen and pelvis showed multiple bilateral cavitary lesions in the lungs concerning for septic emboli Partially visualized left hemithorax, hepatosplenomegaly Chest x-ray shows multiple bilateral pulmonary nodules Left pneumothorax, less than 10% MRI of the lumbar spine shows L5-S1 intradiscal edema suggestive of discitis and mild vertebral osteomyelitis Continue on IV vancomycin and cefepime HIV is negative; acute hepatitis panel pending ID consulted, continue IV fluids and antibiotics Repeat blood work in am 2. Acute opioid withdrawal, last COWS score is 5 Continue on Subutex withdrawal protocol 3. Anemia, hemoglobin 7.7, not far off from previous We will check iron stores 4. Hypokalemia, replace, recheck in a.m. 5. Hyponatremia, likely hypovolemic, improved from 1 25- 29 Recheck in a.m. 6. Elevated LFTs, hepatosplenomegaly from CT, acute hepatitis panel pending 7. DVT prophylaxis?Lovenox subcu Charges/Coding Visit Charges Inpatient E&M: 91921 Subs Hosp L3
[2021-09-22] MEDS: Gabapentin 300 MG Capsule PO (12:19)
[2021-09-22] MEDS: Ondansetron 8 MG Tablet PO (12:19)
[2021-09-22] MEDS: Ketorolac 30 MG/ML Syringe IV ×2 (12:19→19:55)
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
--- NOTE | 2021-09-22 15:12 | ADDICTION ---
This worker spoke with pt about her substance use hx and provided some resources for treatment once medically cleared. This worker offered supportive counseling.
[2021-09-22] MEDS: Ipratropium/Albuterol Sulfate 3 ML AMPUL.NEB INHALATION ×2 (15:13→19:02)
[2021-09-22 15:37] LABS: Ferritin 812 ng/mL (8-252); Iron 19 ug/dL (50-170); Iron Binding Capacity,Total 162 ug/dL (250-450); PERCENT IRON SATURATION 11.7 % (15.0-55.0)
[2021-09-22 15:47] LABS: Platelet Count 174 K/mm3 (150-450); RET-HE 31.9 pg (30-35); Reticulocyte Count 2.12 % (0.5-1.5)
[2021-09-22] MEDS: Buprenorphine HCl 2 MG TAB.SUBL SL (20:35)
[2021-09-22] MEDS: Famotidine 20 MG Tablet PO (22:25)
[2021-09-23] VITALS (16 sets, daily range): BP systolic 97–128; BP diastolic 61–92; PULSE 89–122; RESP 18–24; TEMP 36.6–37.5; O2SAT 95–100
[2021-09-23] MEDS: Buprenorphine HCl 2 MG TAB.SUBL SL ×3 (04:51→20:26)
[2021-09-23] MEDS: Ipratropium/Albuterol Sulfate 3 ML AMPUL.NEB INHALATION ×4 (07:31→19:35)
[2021-09-23] MEDS: 0.9% Saline Lock 10 ML Syringe IV ×2 (08:32→20:27)
--- NOTE | 2021-09-23 08:34 | PN.CC_ITS ---
Assessment & Plan Assessment/Plan (1) Multifocal pneumonia: (2) Acute hyponatremia: (3) Active intravenous drug use: PLAN: RECOMMENDATIONS: 1. Consult ID for long-term antibiotic requirements 2. Walking oximetry prior to discharge 3. Agree with as needed bronchodilators 4. Wound care to evaluate left arm 5. Follow-up in our office in 4 to [address] scan of the chest 6. Hemodynamically stable on room air. Will sign off from a pulmonary perspective IMPRESSIONS: 1. Acute respiratory insufficiency secondary to embolic pneumonia Patient with multiple abscesses throughout the lungs with air-fluid levels. This is superimposed on some emphysematous changes, likely secondary to COPD but this cannot be confirmed. It is unclear if previous pneumothoraces were related to abscess or not, but some of these are peripherally located. Cannot exclude progression to a pneumothorax. Would obtain a chest x-ray if patient develops acute worsening in symptoms. Patient appears to be growing MRSA and has documented endocarditis. Patient will need infectious disease to follow and give long-term recommendations. That being said, patient is tolerating well on room air. Patient would need to repeat CT scan in 4 to 6 weeks to document improvement. Given positive cultures, it is likely not necessary for a bronchoscopy at this time. Please call if there are further issues, but patient is currently hemodynamically stable on room air, so will sign off from a pulmonary perspective. 2. 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 Patient is thin, but this may be secondary to IV drug use. Cannot exclude an underlying malignancy and this will need to be followed up as an outpatient. Patient may benefit from fluid restriction. Morning labs are currently pending. 3. Hepatitis Patient with elevation of liver enzymes, elevated INR and low albumin. Patient may have an element of malnutrition. We will need to watch closely for refeeding syndrome. Hepatitis panel is already been sent. Patient does not appear to be in acute hepatic failure. Subjective Subjective The patient did well overnight. No acute issues were reported. Patient subjectively feels improved compared to previous. Patient states that the ad dition of Suboxone has made a significant improvement from her perspective. Patient is not reporting any chest pain, abdominal pain, nausea or vomiting. Objective Data Objective Data Vital Signs: Vital Signs Temp Pulse Resp BP Pulse Ox 36.6 C 101 H 18 112/81 H 98 09/23/21 04:20 09/23/21 07:38 09/23/21 04:55 09/23/21 04:20 09/23/21 04:55 Oxygen Delivery Method Room Air Weight: 54.3 kg Body Mass Index (BMI) 18.7 Intake & Output: Intake and Output for Last 24 Hours 09/21/21 09/22/21 09/23/21 23:59 23:59 23:59 Intake Total 1475 / 1475 3466.66 / 3466.66 Output Total 250 / 250 875 / 1275 450 / 450 Balance 1225 / 1225 2591.66 / 2191.66 -450 / -450 Lab / Micro Data Result Diagrams: 09/22/21 05:53 09/22/21 05:53 Labs: Laboratory Results - last 24 hr 09/22/21 05:53: Retic Count 2.12 H, Immature Retic Fraction 29.40 H, Retic Hgb Equivalent 31.9 09/22/21 05:53: Iron 19 L, TIBC 162 L, Iron Saturation 11.7 L, Ferritin 812 H Micro: Microbiology 09/21/21 19:00 Urine Catheter - Catheter Urine Culture - Final Meth. resistant Staph. aureus 09/21/21 19:23 Blood Culture (Wb) - Chest Bacteria Detection (PCR) - Final Meth. resistant Staph. aureus 09/21/21 19:23 Blood Culture (Wb) - Chest Blood Culture - Preliminary 09/21/21 18:50 Blood Culture (Wb) - Left Wrist Blood Culture - Preliminary 09/21/21 18:50 Blood Culture (Wb) - Neck Blood Culture - Preliminary Radiography Diagnostic Testing: Radiology Impression Echocardiogram 09/22/21 05:28 Interpretation Summary Normal LV size. Left ventricular systolic function is normal. The estimated ejection fraction is 55 %. Multiple vegetations noted on the tricuspid valve measuring 1.5 x 0.3 cm and 1.2 x 1.0 cm Pulmonary artery systolic pressure is 35 mmHg. Above consistent with endocarditis Ordering Physician: Boni Lynne Performed By: Rebecca Robison, MINDI, RVT Lumbar Spine MRI 09/22/21 05:55 ADDENDUM: 09/22/21 1125 Physical Exam Const alert and oriented x3 General Appearance: cooperative, ill appearing and frail Nutritional Appearance: cachectic HEENT normocephalic Mouth: dry mucous membranes Eyes PERRL, EOMs intact bilaterally and conjunctivae normal Neck supple and no JVD Chest inspection of chest normal Chest: symmetrical chest wall rise; Negative for crepitus Resp normal respiratory effort, no retractions and no use of accessory muscles Auscultation: diminished lung sounds; Negative for crackles, rales, rhonchi or wheezes Cardio regular rate, regular rhythm, S1 normal heart sound and S2 normal heart sound Cardio Narrative: Questionable grade 2 systolic ejection murmur at the left lower sternal border GI soft to palpation, non-tender and non-distended; Negative for hepatosplenomegaly Extremity General Extremity: edema; Negative for clubbing or cyanosis Skin Skin Narrative: Large 2 cm granulomatous scab with surrounding erythema noted on the dorsal aspect of the left upper extremity Neuro no focal motor deficits and no sensory deficits noted Psych Appearance: appropriate Mood & Affect: flat affect Charges/Coding Visit Charges Inpatient E&M: 88129 Subs Hosp L2
[2021-09-23 08:36] LABS: Vancomycin, Trough Level 24.1 ug/mL (5.0-15.0)
[2021-09-23 08:55] LABS: Absolute Lymphocyte Count 0.89 X10^3/uL (0.83-4.51); Absolute Neutrophil Count 7.5 X10^3/uL (2.0-7.7); Basophil# 0.02 X10^3/uL; Basophil% 0.2 % (0-1); Eosinophil# 0.05 X10^3/uL; Eosinophils% 0.6 % (0-5); Hematocrit 21.5 % (37-47); Hemoglobin 7.1 g/dL (12.0-15.0); Lymphocyte # 0.89 X10^3/ul (0.83-4.51); Lymphocyte % 9.8 % (19-41); Mean Corpuscular Hgb 24.7 pg (27.0-32.0); Mean Corpuscular Volume 74.7 fL (81-99); Mean Platelet Vol. 10.8 fl (6.2-12.0); Monocyte% 5.5 % (0-10); NRBC Flagged by Analyzer 0 % (0-5); Neutrophil # 7.48 X10^3/uL (2.7-7.7); Neutrophil % 82.8 % (47-70); Platelet Count 235 K/mm3 (150-450); RBC Distribution Width SD 42.3 fl (35.1-43.9); Red Blood Count 2.88 M/mm3 (4.2-5.4)
[2021-09-23 08:59] LABS: ALB/GLOB Ratio 0.2 RATIO (0.9-2.4); AST(SGOT) 36 U/L (15-37); Alanine Aminotransfer ALT/SGPT 41 U/L (13-56); Albumin, Serum 1.1 g/dL (3.2-5.0); Alkaline Phosphatase 133 U/L (45-117); Anion Gap 5 (5-15); BUN 37 mg/dL (7-18); BUN/Creat Ratio 58.1 RATIO (10-20); Calcium,Total 7.2 mg/dL (8.5-10.1); Chloride 108 mmol/L (98-107); Creatinine, Serum 0.64 mg/dL (0.55-1.02); EST Glomerular Filtration Rate 107 mL/min (>60); Est Glom Filt Rate - Afr Amer 130 mL/min (>60); Estimated Creatinine Clearance 96.16 ml/min; Globulin 4.9 g/dL (2.2-4.2); Glucose 105 mg/dL (74-106); Potassium 3.8 mmol/L (3.5-5.1); Sodium Level 135 mmol/L (136-145)
[2021-09-23] MEDS: 0.9% Normal Saline 1,000 ML 100 ML IV (09:03)
[2021-09-23] MEDS: Lidocaine 5% Patch 2 PATCH TOPICAL (09:05)
[2021-09-23] MEDS: Enoxaparin 40 MG/0.4 ML Syringe SC (09:06)
[2021-09-23] MEDS: Famotidine 20 MG Tablet PO ×2 (09:07→21:25)
[2021-09-23] MEDS: LORazepam 0.5 MG Tablet PO (09:27)
--- NOTE | 2021-09-23 09:30 | PCM.RX.CS ---
Consult Pharmacy has been consulted to manage selected antiobiotic: Vancomycin Type of Consult: Follow-up Suspected Infection: Bacteremia Labs: Sodium 135 mmol/L (136-145) L 09/23/21 08:30 Potassium 3.8 mmol/L (3.5-5.1) 09/23/21 08:30 Chloride 108 mmol/L (98-107) H 09/23/21 08:30 Carbon Dioxide 22.0 mmol/L (21.0-32.0) 09/23/21 08:30 Anion Gap 5 (5-15) 09/23/21 08:30 BUN 37 mg/dL (7-18) H 09/23/21 08:30 Creatinine 0.64 mg/dL (0.55-1.02) 09/23/21 08:30 Est GFR (MDRD) Af Amer 130 mL/min (>60) 09/23/21 08:30 Est GFR (MDRD) Non-Af 107 mL/min (>60) 09/23/21 08:30 BUN/Creatinine Ratio 58.1 RATIO (10-20) H 09/23/21 08:30 Glucose 105 mg/dL (74-106) 09/23/21 08:30 Vancomycin Trough 24.1 ug/mL (5.0-15.0) H 09/23/21 08:01 Microbiology: Microbiology 09/21/21 18:50 Blood Culture (Wb) - Left Wrist Blood Culture - Preliminary Staphylococcus aureus 09/21/21 18:50 Blood Culture (Wb) - Neck Blood Culture - Preliminary Staphylococcus aureus 09/21/21 19:23 Blood Culture (Wb) - Chest Bacteria Detection (PCR) - Final Meth. resistant Staph. aureus 09/21/21 19:23 Blood Culture (Wb) - Chest Blood Culture - Preliminary Staphylococcus aureus 09/21/21 19:00 Urine Catheter - Catheter Urine Culture - Final Meth. resistant Staph. aureus Goal Trough: 15-20 mcg/mL Pharmacy Plan for Drug Dosing: VANCOMYCIN LEVEL RECEIVED Current Vancomycin Dose: 1000MG IV Q12H Number of Doses Received: 3 (1 initial + 2 scheduled) Vancomycin Level: 24.1 Hours Since Last Dose: 11.75hr Renal Function: 0.64 Renal Function Trend: stable Lab/Micro: BCx and UCx growing MRSA, sens to vancomycin Vancomycin Plan/Comments: patient had a trough drawn which resulted in a value of 24.1 (goal 15-20). Trough was drawn appropriately. Will hold current vancomycin dose and redraw a random trough 12hr from last trough drawn to assess dosing at that time. Of note; patient did not get vancomycin dose this morning, so the random level tonight will be 24hr fom last administered dose. Will resume vancomycin once trough is <20 Pending Level: *Random* trough 09/23/21 @1930 Pharmacy Service will continue to monitor and adjust dosing as required.
[2021-09-23] MEDS: Ketorolac 30 MG/ML Syringe IV (09:43)
--- NOTE | 2021-09-23 10:00 | RAD_ITS ---
History: chest pain EXAMINATION/TECHNIQUE: XR Chest 2 Views: COMPARISON: September 21, 2021 FINDINGS: LINES/DEVICES: Right IJ central venous catheter remains in place. LUNGS: Multiple bilateral pulmonary cavities containing air-fluid levels again noted without significant interval change. New small left pleural effusion. No pneumothorax. MEDIASTINUM AND CARDIOVASCULAR STRUCTURES: Cardiac silhouette not enlarged. Central airways and mediastinal contour are unremarkable. BONES AND SOFT TISSUES: Unremarkable. RAD/Chest PA and Lateral IMPRESSION: Bilateral cavitary lesions of both lungs with air fluid levels not significantly changed from prior exam. at 1028 Reported and signed by: Jamar Cordova MD Electronically Signed: Jamar Cordova MD at 10:27 EST ,
[2021-09-23 10:07] LABS: HEPATITIS B SURFACE AG Negative (Negative); Hepatitis A IgM Antibody Negative (Negative); Hepatitis B Core AB IgM Negative (Negative)
[2021-09-23] MEDS: Gabapentin 300 MG Capsule PO (12:44)
--- NOTE | 2021-09-23 15:10 | PN.HOSP_ITS ---
Subjective Subjective Follow-up on MRSA bacteremia/septic emboli pneumonia/IV drug use/endocarditis/discitis/vertebral osteomyelitis: Patient was seen and examined. She complains of severe right-sided chest pain. She also admits to having a panic attack. Denies any fever or chills. Denies any diarrhea or nausea. Chest x-ray this morning appears unchanged. Objective Data Objective Data Vital Signs: Vital Signs Temp Pulse Resp BP Pulse Ox 99.3 F H 117 H 18 97/61 100 09/23/21 12:45 09/23/21 14:48 09/23/21 12:45 09/23/21 12:45 09/23/21 12:45 Oxygen Delivery Method Room Air Weight: 54.3 kg Body Mass Index (BMI) 18.7 Intake & Output: Intake and Output for Last 24 Hours 09/21/21 09/22/21 09/23/21 23:59 23:59 23:59 Intake Total 1475 / 1475 3466.66 / 3466.66 1881.67 / 1881.67 Output Total 250 / 250 875 / 1275 700 / 700 Balance 1225 / 1225 2591.66 / 2191.66 1181.67 / 1181.67 Lab / Micro Data Result Diagrams: 09/23/21 08:30 09/23/21 08:30 Labs: Laboratory Results - last 24 hr 09/22/21 05:53: Retic Count 2.12 H, Immature Retic Fraction 29.40 H, Retic Hgb Equivalent 31.9 09/22/21 05:53: Iron 19 L, TIBC 162 L, Iron Saturation 11.7 L, Ferritin 812 H 09/23/21 08:01: Vancomycin Trough 24.1 H 09/23/21 08:30: WBC 9.0, RBC 2.88 L, Hgb 7.1 L, Hct 21.5 L, MCV 74.7 L, MCH 24.7 L, MCHC 33.0, RDW Std Deviation 42.3, RDW Coeff of Golden 16.0 H, Plt Count 235, MPV 10.8, Immature Gran % (Auto) 1.100 H, Neut % (Auto) 82.8 H, Lymph % (Auto) 9.8 L, [place] % (Auto) 5.5, Eos % (Auto) 0.6, Baso % (Auto) 0.2, Absolute Neuts (auto) 7.5, Absolute Lymphs (auto) 0.89, Nucleated RBC % 0 09/23/21 08:30: Sodium 135 L, Potassium 3.8, Chloride 108 H, Carbon Dioxide 22.0, Anion Gap 5, BUN 37 H, Creatinine 0.64, Estim Creat Clear Calc 96.16, Est GFR (MDRD) Af Amer 130, Est GFR (MDRD) Non-Af 107, BUN/Creatinine Ratio 58.1 H, Glucose 105, Calcium 7.2 L, Total Bilirubin 0.70, AST 36, ALT 41, Alkaline Phosphatase 133 H, Total Protein 6.0 L, Albumin 1.1 L, Globulin 4.9 H, [place] min/Globulin Ratio 0.2 L Micro: Microbiology 09/22/21 14:52 Blood Culture (Wb) - Venous Blood Culture - Preliminary 09/21/21 18:50 Blood Culture (Wb) - Left Wrist Blood Culture - Preliminary Staphylococcus aureus 09/21/21 18:50 Blood Culture (Wb) - Neck Blood Culture - Preliminary Staphylococcus aureus 09/21/21 19:23 Blood Culture (Wb) - Chest Bacteria Detection (PCR) - Final Meth. resistant Staph. aureus 09/21/21 19:23 Blood Culture (Wb) - Chest Blood Culture - Preliminary Staphylococcus aureus 09/21/21 19:00 Urine Catheter - Catheter Urine Culture - Final Meth. resistant Staph. aureus Radiography Diagnostic Testing: Radiology Impression Echocardiogram 09/22/21 05:28 Interpretation Summary Normal LV size. Left ventricular systolic function is normal. The estimated ejection fraction is 55 %. Multiple vegetations noted on the tricuspid valve measuring 1.5 x 0.3 cm and 1.2 x 1.0 cm Pulmonary artery systolic pressure is 35 mmHg. Above consistent with endocarditis Ordering Physician: Boni Lynne Performed By: Rebecca Robison, RDCS, RVT Chest X-Ray 09/23/21 10:00 IMPRESSION: Bilateral cavitary lesions of both lungs with air fluid levels not significantly changed from prior exam. at 1028 Reported and signed by: Jamar Cordova MD Electronically Signed: Jamar Cordova MD at 10:27 EST , Physical Exam Narrative Physical exam: General: Alert, Oriented x3, Cooperative, No apparent distress, appears very cachectic HEENT: Atraumatic Oral: Moist Mucosa Neck: Supple Lungs: Diminished to auscultation Cardiovascular: HS I+II, regular, no murmurs Abdomen: Bowel Sounds Present, Soft, Non Tender Extremities: No edema Assessment & Plan Assessment/Plan (1) Active intravenous drug use: (2) Acute hyponatremia: (3) Multifocal pneumonia: (4) Vertebral osteomyelitis, acute: (5) Discitis: QUALIFIERS: Spinal region: lumbar Qualified Code(s): M46.46 - Discitis, unspecified, lumbar region PLAN: 1. Acute MRSA bacteremia/septic emboli/acute discitis/vertebral osteomyelitis/endocarditis Patient is an IV drug user -uses fentanyl IV CT of the abdomen and pelvis showed multiple bilateral cavitary lesions in the lungs concerning for septic emboli Partially visualized left hemithorax, hepatosplenomegaly Chest x-ray shows multiple bilateral pulmonary nodules Left pneumothorax, less than 10% MRI of the lumbar spine shows L5-S1 intradiscal edema suggestive of discitis and mild vertebral osteomyelitis Repeat blood cultures showing MRSA Continue on IV vancomycin and cefepime HIV is negative; acute hepatitis panel pending ID consulted, continue IV fluids and antibiotics Repeat blood blood cultures again, CBCD, CMP in a.m. 2. Acute opioid withdrawal, last COWS score is 5 Continue on Subutex withdrawal protocol 3. Acute iron deficiency anemia, patient's hemoglobin is 7.1, likely with a component of hemodilution Will stop IV fluids, repeat hemoglobin again in a.m., if less than 7, patient will need blood transfusion We will also start patient on oral iron, 4. Hypokalemia, replace, recheck in a.m. 5. Hyponatremia, likely hypovolemic, continues to improve, currently 135 from 129 Recheck in a.m. 6. Elevated LFTs, hepatosplenomegaly from CT, improving Acute hepatitis panel pending Continue to trend LFTs 7. DVT prophylaxis?Lovenox subcu Charges/Coding Visit Charges Inpatient E&M: 67821 Subs Hosp L2
[2021-09-23] MEDS: Senna Tablet 1 TABLET PO (15:55)
--- NOTE | 2021-09-23 16:00 | RAD_ITS ---
History: Pain Right shoulder 4 views: Findings: Old fracture left clavicle. No acute fracture or subluxation. Soft tissues are normal. Cavitary changes within the lung again seen. IMPRESSION: Old right clavicular fracture. at 1701 Reported and signed by: Jamar Cordova MD Electronically Signed: Jamar Cordova MD at 16:59 EST , RAD/Shoulder min 2 Views
[2021-09-23] MEDS: 0.9% Normal Saline 1,000 ML 999 ML IV (16:16)
[2021-09-23] MEDS: hydrOXYzine PAM 25 MG Capsule 50 MG PO (16:46)
[2021-09-23] MEDS: NYSTATIN 500,000 UNIT/5 ML UDC 500000 UNIT PO ×2 (18:55→21:25)
[2021-09-23 20:22] LABS: Vancomycin, Random Level 12.4 ug/mL (0.0-15.0)
--- NOTE | 2021-09-23 21:44 | PCM.RX.CS ---
Consult Pharmacy has been consulted to manage selected antiobiotic: Vancomycin Type of Consult: Follow-up Suspected Infection: Bacteremia Prior Doses of Antibiotics Received/Current Regimen: Medications Vancomycin HCl 750 mg/ Sodium (Chloride) 265 mls @ 250 mls/hr IV Q12H REPLACED BY [facility] Last Admin: 09/23/21 21:24 Dose: 250 mls/hr Documented by: Discontinued Medications Vancomycin HCl (Vancomycin) 1,000 mg in 200 mls @ 200 mls/hr IV Q12H REPLACED BY [facility] Last Admin: 09/23/21 09:04 Dose: Not Given Documented by: Labs: Sodium 135 mmol/L (136-145) L 09/23/21 08:30 Potassium 3.8 mmol/L (3.5-5.1) 09/23/21 08:30 Chloride 108 mmol/L (98-107) H 09/23/21 08:30 Carbon Dioxide 22.0 mmol/L (21.0-32.0) 09/23/21 08:30 Anion Gap 5 (5-15) 09/23/21 08:30 BUN 37 mg/dL (7-18) H 09/23/21 08:30 Creatinine 0.64 mg/dL (0.55-1.02) 09/23/21 08:30 Est GFR (MDRD) Af Amer 130 mL/min (>60) 09/23/21 08:30 Est GFR (MDRD) Non-Af 107 mL/min (>60) 09/23/21 08:30 BUN/Creatinine Ratio 58.1 RATIO (10-20) H 09/23/21 08:30 Glucose 105 mg/dL (74-106) 09/23/21 08:30 Vancomycin Trough 24.1 ug/mL (5.0-15.0) H 09/23/21 08:01 Random Vancomycin 12.4 ug/mL (0.0-15.0) 09/23/21 19:44 Microbiology: Microbiology 09/22/21 14:52 Blood Culture (Wb) - Venous Blood Culture - Preliminary 09/21/21 18:50 Blood Culture (Wb) - Left Wrist Blood Culture - Preliminary Staphylococcus aureus 09/21/21 18:50 Blood Culture (Wb) - Neck Blood Culture - Preliminary Staphylococcus aureus 09/21/21 19:23 Blood Culture (Wb) - Chest Bacteria Detection (PCR) - Final Meth. resistant Staph. aureus 09/21/21 19:23 Blood Culture (Wb) - Chest Blood Culture - Preliminary Staphylococcus aureus 09/21/21 19:00 Urine Catheter - Catheter Urine Culture - Final Meth. resistant Staph. aureus Weight used for dosin.3 kg Estimated Creatinine Clearance: 96 Goal Trough: 15-20 mcg/mL Pharmacy Plan for Drug Dosing: The random vancomycin level was 12.4. It was drawn 23?hrs after last dose. Vancomycin dosing will resume at 750mg q12h, and another trough level will be drawn prior to the 4th dose. Pharmacy Service will continue to monitor and adjust dosing as required. Follow-Up Labs: Trough Vancomycin Labs to be done on [date and time ordered]: 09/25/21 @6742
[2021-09-24] VITALS (16 sets, daily range): BP systolic 108–135; BP diastolic 69–93; PULSE 98–126; RESP 16–21; TEMP 36.9–37.9; O2SAT 94–99
[2021-09-24] MEDS: Ketorolac 30 MG/ML Syringe IV ×2 (02:26→19:51)
[2021-09-24] MEDS: 0.9% Saline Lock 10 ML Syringe IV ×4 (02:28→19:52)
[2021-09-24] MEDS: Buprenorphine HCl 2 MG TAB.SUBL SL ×3 (04:48→19:51)
[2021-09-24] MEDS: Ipratropium/Albuterol Sulfate 3 ML AMPUL.NEB INHALATION ×3 (06:50→19:42)
[2021-09-24 07:58] LABS: Absolute Lymphocyte Count 1.21 X10^3/uL (0.83-4.51); Basophil# 0.01 X10^3/uL; Basophil% 0.1 % (0-1); Eosinophil# 0.06 X10^3/uL; Eosinophils% 0.7 % (0-5); Hematocrit 19.1 % (37-47); Hemoglobin 6.3 g/dL (12.0-15.0); Lymphocyte # 1.21 X10^3/ul (0.83-4.51); Lymphocyte % 13.4 % (19-41); Mean Corpuscular Hgb 25.3 pg (27.0-32.0); Mean Corpuscular Volume 76.7 fL (81-99); Mean Platelet Vol. 9.8 fl (6.2-12.0); Monocyte# 0.58 X10^3/uL; Monocyte% 6.4 % (0-10); NRBC Flagged by Analyzer 0 % (0-5); Neutrophil # 7.04 X10^3/uL (2.7-7.7); Neutrophil % 78.3 % (47-70); Platelet Count 292 K/mm3 (150-450); RBC Distribution Width CV 16.8 % (11.6-14.6); RBC Distribution Width SD 44.9 fl (35.1-43.9); Red Blood Count 2.49 M/mm3 (4.2-5.4)
[2021-09-24] MEDS: hydrOXYzine PAM 25 MG Capsule 50 MG PO ×2 (08:15→19:51)
[2021-09-24 08:26] LABS: ALB/GLOB Ratio 0.2 RATIO (0.9-2.4); AST(SGOT) 42 U/L (15-37); Alanine Aminotransfer ALT/SGPT 37 U/L (13-56); Albumin, Serum 1.1 g/dL (3.2-5.0); Alkaline Phosphatase 131 U/L (45-117); Anion Gap 4 (5-15); BUN 28 mg/dL (7-18); BUN/Creat Ratio 35.9 RATIO (10-20); Calcium,Total 7.2 mg/dL (8.5-10.1); Chloride 112 mmol/L (98-107); Creatinine, Serum 0.78 mg/dL (0.55-1.02); EST Glomerular Filtration Rate 85 mL/min (>60); Est Glom Filt Rate - Afr Amer 103 mL/min (>60); Globulin 4.9 g/dL (2.2-4.2); Glucose 132 mg/dL (74-106); Potassium 4.1 mmol/L (3.5-5.1); Sodium Level 137 mmol/L (136-145)
--- NOTE | 2021-09-24 10:00 | PCM.PN.HOSP ---
Subjective Subjective Patient admitted with fever, feeling generalized weakness and illness, chronic back pain for last 4 to 5 days prior to admission. She is IVDA, CT chest shows septic bilateral pulmonary emboli. Api Product Manager was consulted. Objective Data Objective Data Vital Signs: Vital Signs Temp Pulse Resp BP Pulse Ox 98.7 F 106 H 18 135/90 H 97 09/24/21 06:45 09/24/21 07:00 09/24/21 08:15 09/24/21 06:45 09/24/21 06:45 Oxygen Delivery Method Room Air Weight: 119 lb 11.376 oz Body Mass Index (BMI) 18.7 Intake & Output: Intake and Output for Last 24 Hours 09/22/21 09/23/21 09/24/21 23:59 23:59 23:59 Intake Total 3466.66 / 3466.66 3846.67 / 3846.67 Output Total 875 / 1275 700 / 700 1000 / 1000 Balance 2591.66 / 2191.66 3146.67 / 3146.67 -1000 / -1000 Lab / Micro Data Result Diagrams: 09/24/21 07:50 09/24/21 07:50 Labs: Laboratory Results - last 24 hr 09/23/21 19:44: Random Vancomycin 12.4 09/24/21 07:50: WBC 9.0, RBC 2.49 L, Hgb 6.3 L, Hct 19.1 L, MCV 76.7 L, MCH 25.3 L, MCHC 33.0, RDW Std Deviation 44.9 H, RDW Coeff of Golden 16.8 H, Plt Count 292, MPV 9.8, Immature Gran % (Auto) 1.100 H, Neut % (Auto) 78.3 H, Lymph % (Auto) 13.4 L, [place] % (Auto) 6.4, Eos % (Auto) 0.7, Baso % (Auto) 0.1, Absolute Neuts (auto) 7.0, Absolute Lymphs (auto) 1.21, Nucleated RBC % 0 09/24/21 07:50: Sodium 137, Potassium 4.1, Chloride 112 H, Carbon Dioxide 21.0, Anion Gap 4 L, BUN 28 H, Creatinine 0.78, Estim Creat Clear Calc 78.90, Est GFR (MDRD) Af Amer 103, Est GFR (MDRD) Non-Af 85, BUN/Creatinine Ratio 35.9 H, Glucose 132 H, Calcium 7.2 L, Total Bilirubin 0.60, AST 42 H, ALT 37, Alkaline Phosphatase 131 H, Total Protein 6.0 L, Albumin 1.1 L, Globulin 4.9 H, Albumin/Globulin Ratio 0.2 L Micro: Microbiology 09/21/21 18:50 Blood Culture (Wb) - Left Wrist Blood Culture - Final Meth. resistant Staph. aureus 09/21/21 18:50 Blood Culture (Wb) - Neck Blood Culture - Final Meth. resistant Staph. aureus 09/21/21 19:23 Blood Culture (Wb) - Chest Bacteria Detection (PCR) - Final Meth. resistant Staph. aureus 09/21/21 19:23 Blood Culture (Wb) - Chest Blood Culture - Final Meth. resistant Staph. aureus 09/22/21 14:52 Blood Culture (Wb) - Venous Blood Culture - Preliminary 09/21/21 19:00 Urine Catheter - Catheter Urine Culture - Final Meth. resistant Staph. aureus Radiography Diagnostic Testing: Radiology Impression Chest X-Ray 09/23/21 10:00 IMPRESSION: Bilateral cavitary lesions of both lungs with air fluid levels not significantly changed from prior exam. at 1028 Reported and signed by: Jamar Cordova MD Electronically Signed: Jamar Cordova MD at 10:27 EST Reading Location ID and State: [address] [place] [address] Tel , Service support , Shoulder X-Ray 09/23/21 16:00 Physical Exam Narrative General: Awake, lethargy. Oriented to time, place and person. HEENT: Atraumatic, PERRLA, EOMI, Normocephalic Oral: No Gingival or Mucosal Lesions/ Ulcerations Neck: Supple, No JVD, Negative Carotid Bruits Lungs: Air entry diminished in bilateral lung bases. No crepitation/rhonchi Cardiovascular: Sinus tachycardia, normal S1, Normal S2, No murmurs Abdomen: Bowel Sounds Present, Soft, Non Tender, Non-Distended : No renal angle tenderness. No suprapubic tenderness. Extremities: No edema, Capillary Refill Less than 3 Seconds Skin: No rashes, No breakdown Musculoskeletal: Moderate atrophy of muscles of extremities. No Tenderness to Palpation of Joints or Extremities Neurological: Cranial nerves II-XII grossly intact, DTR 2+/4 Psych/Mental Status: Flat affect. Withdrawal Assessment & Plan Assessment/Plan (1) Active intravenous drug use: (2) Acute hyponatremia: (3) Multifocal pneumonia: (4) Vertebral osteomyelitis, acute: (5) Discitis: QUALIFIERS: Spinal region: lumbar Qualified Code(s): M46.46 - Discitis, unspecified, lumbar region PLAN: 1. Acute MRSA bacteremia/septic emboli/acute discitis/vertebral osteomyelitis/tricuspid endocarditis: Patient is being admitted with IVDA fentanyl use withdrawal symptoms. CT chest shows bilateral cavitary lesions with air-fluid levels, largest measuring 51 mm in right upper lobe. Left upper lobectomy changes. Small left pneumothorax less than 10%. Patient was evaluated by delivery route driver and recommended ID consult in long-term antibiotic. On IV cefepime and vancomycin. Abdomen pelvis CT shows hepatosplenomegaly. Patient had lumbar spine MRI which showed L5-S1 vertebral osteomyelitis and discitis. No epidural or paraspinal abscesses. Blood culture on 09/21/2021, 09/22 shows gram-positive cocci in cluster, PCR testing shows MRSA. Patient has right-sided triple-lumen catheter. Urine culture positive of MRSA colony count 11,000-25,000. On threat monitoring analyst patient sinus tachycardia, not tachypneic or hypoxic. Leukocytosis resolved. 2D echo shows multiple vegetations on the tricuspid valve measuring 1.5 x 0.3 cm and 1.2 x 1.0 cm with mild TR. PASP 35 mmHg. Normal mitral valve and aortic valve. Normal pulmonic valve. No pericardial effusion. EF 55%. ID recommended transfer to tertiary care for cardiac surgery evaluation. I called multiple hospital transfer lines. [facility] does not have bed until tomorrow. [facility] is also same waiting list. [facility] called admitting for call back. 2. Acute opioid withdrawal, last COWS score is 5. CINA score is 3. On buprenorphine along with other adjunctive medication to control withdrawal symptoms 3. Acute microcytic anemia possible due to infective endocarditis/chronic disease: Patient hemoglobin dropped from 7.8-6.3. Serum iron low, TIBC low and ferritin high. 1 unit PRBC ordered. Monitor CBC. Patient does not have any active external overt bleeding 4. Hypokalemia: Resolved 5. Hypotonic hypovolemic hyponatremia: Patient admitting serum sodium was 125, increased to 137 normal. Hyponatremia resolved. 6. Elevated transaminases probably from infective endocarditis and chronic hepatitis C: Hep C antibody positive. HIV 1 and 2 antibody negative. COVID-19 PCR not detected. Monitor liver chemistry. 7. DVT prophylaxis?Lovenox discontinued because of severe anemia. Total time of the visit including total time spent in counseling or coordination of care, (more than 50% of the total time, spent in obtaining medical information from nurses and other ancillary care providers,explaining to the patient about labs, imaging, diagnosis and management), discussion with ID trial consultant, operational intelligence officer consulted and transfer line, review of labs and imaging is 40 minutes. Charges/Coding Visit Charges Inpatient E&M: 58620 Subs Hosp L3
--- NOTE | 2021-09-24 11:07 | CASEMGMT ---
According to the [facility] website, the following are in-network tertiary facilities: [facility], [facility], [facility], [facility], [facility], [facility], [facility], and . Jimmy MENA CM
[2021-09-24] MEDS: NYSTATIN 500,000 UNIT/5 ML UDC 500000 UNIT PO ×4 (11:15→19:51)
[2021-09-24] MEDS: Senna Tablet 1 TABLET PO (11:16)
[2021-09-24] MEDS: Lidocaine 5% Patch 2 PATCH TOPICAL (11:16)
[2021-09-24] MEDS: Famotidine 20 MG Tablet PO ×2 (11:16→19:51)
[2021-09-24] MEDS: Ferrous Sulfate 325 MG Tablet PO (11:16)
[2021-09-24 13:34] LABS: Hep C Antibodies >11.0 s/co ratio (0.0-0.9)
--- NOTE | 2021-09-24 13:38 | EKG12_ITS ---
Test Reason : Blood Pressure : / mmHG Vent. Rate : 124 BPM Atrial Rate : 248 BPM P-R Int : 000 ms QRS Dur : 092 ms QT Int : 304 ms P-R-T Axes : 063 051 049 degrees QTc Int : 436 ms Atrial flutter with variable A-V block with premature ventricular or aberrantly conducted complexes ST abnormality, possible digitalis effect Abnormal ECG Confirmed by ALIDA GARDUNO, MICKEY ([id number]), video editor ED BRADLEY ([id number]) on 09/26/2021 9:56:33 AM Referred By: SUHAIL Confirmed By:MICKEY IRWIN MD
--- NOTE | 2021-09-24 13:54 | PCM.CONS.GEN ---
Assessment & Plan Assessment/Plan (1) Vertebral osteomyelitis, acute: (2) Active intravenous drug use: (3) Endocarditis: PLAN: MRSA endocarditis with cavitary lung lesions, tricuspid vegs, and L5-S1 osteo/discitis with h/o active IVDU. Will repeat bcx. Cont vanc/cefepime for now. Requested hiv and hep panel, hiv was neg, hep pending. Given size of vegetations, recommend transfer for cardiac surgery evaluation. Reports covid vaccine x1 within past few weeks. Will follow, thank you, d/w primary team HPI Consult Data Date of Consult: 09/24/21 HPI Narrative HPI Narrative: XIOMARA HILTON, is a 45 F with IVDU who presented 3/4 with about 1-2 weeks of not feeling well, c/o fever, pain in back, cough, SOB. Last injected fentanyl about 4-5 days prior to admit. Started on vanc/cefepime. Bcx with MRSA. MRI showed lumbar osteo/discitis but no epidural abscess. TTE showed large tricuspid vegs. CT chest showed cavitary lesions. Denies sharing needles, denies licking needles. No h/o hiv or hepatitis. Not feeling any better. Also c/o B ankle pain. Full ROS performed and neg except as noted above. PFSH Home Medications azithromycin 250 mg PO UD #1 box 10/16/19 [Rx Last Taken Unknown] cyclobenzaprine 10 mg PO TID PRN #20 tablet 09/06/21 [Rx Last Taken Unknown] naproxen 500 mg PO BID PRN #20 tab 09/06/21 [Rx Last Taken Unknown] Allergy/AdvReac Type Severity Reaction Status Date / Time clindamycin Allergy Hives Verified 09/21/21 17:10 methadone Allergy Swelling Verified 09/21/21 17:10 nitrofurantoin Allergy Hives Verified 09/21/21 21:13 [From Macrobid] Family History Other Cancer Diabetes Heart disease Surgical History S/P lobectomy of lung Social History Smoking Status: Current every day smoker tobacco type: cigarettes Physical Exam Const alert Constitutional Narrative: ill appearing, uncomfortable General Appearance: cooperative HEENT normocephalic and head/scalp atraumatic Eyes PERRL and EOMs intact bilaterally Neck supple and No nodes Resp Auscultation: rhonchi and diminished lung sounds Cardio Rate: tachycardic Heart Sounds: murmur GI soft to palpation, non-tender and non-distended Extremity no clubbing, cyanosis or edema Extremity Narrative: area of swelling/redness at lower portion of L plummer. ROM ok. No other focal joint pain. (+) lumbar tenderness Skin Skin Narrative: splinter hemorrhage on L and R index fingers Neuro CN's II-XII intact bilaterally Lab / Micro Data Result Diagrams: 09/24/21 07:50 09/24/21 07:50 Labs: Laboratory Results - last 24 hr 09/21/21 18:50: Hepatitis A IgM Ab Negative, Hep Bs Antigen Negative, Hep B Core IgM Ab Negative, Hepatitis C Ab (EIA) >11.0 H 09/23/21 19:44: Random Vancomycin 12.4 09/24/21 07:50: WBC 9.0, RBC 2.49 L, Hgb 6.3 L, Hct 19.1 L, MCV 76.7 L, MCH 25.3 L, MCHC 33.0, RDW Std Deviation 44.9 H, RDW Coeff of Golden 16.8 H, Plt Count 292, MPV 9.8, Immature Gran % (Auto) 1.100 H, Neut % (Auto) 78.3 H, Lymph % (Auto) 13.4 L, [place] % (Auto) 6.4, Eos % (Auto) 0.7, Baso % (Auto) 0.1, Absolute Neuts (auto) 7.0, Absolute Lymphs (auto) 1.21, Nucleated RBC % 0 09/24/21 07:50: Sodium 137, Potassium 4.1, Chloride 112 H, Carbon Dioxide 21.0, Anion Gap 4 L, BUN 28 H, Creatinine 0.78, Estim Creat Clear Calc 78.90, Est GFR (MDRD) Af Amer 103, Est GFR (MDRD) Non-Af 85, BUN/Creatinine Ratio 35.9 H, Glucose 132 H, Calcium 7.2 L, Total Bilirubin 0.60, AST 42 H, ALT 37, Alkaline Phosphatase 131 H, Total Protein 6.0 L, Albumin 1.1 L, Globulin 4.9 H, Albumin/Globulin Ratio 0.2 L 09/24/21 13:03: Crossmatch See Detail Micro: Microbiology 09/21/21 18:50 Blood Culture (Wb) - Left Wrist Blood Culture - Final Meth. resistant Staph. aureus 09/21/21 18:50 Blood Culture (Wb) - Neck Blood Culture - Final Meth. resistant Staph. aureus 09/21/21 19:23 Blood Culture (Wb) - Chest Bacteria Detection (PCR) - Final Meth. resistant Staph. aureus 09/21/21 19:23 Blood Culture (Wb) - Chest Blood Culture - Final Meth. resistant Staph. aureus 09/22/21 14:52 Blood Culture (Wb) - Venous Blood Culture - Preliminary Radiology Impression Shoulder X-Ray 09/23/21 16:00
[2021-09-24] MEDS: Ondansetron 8 MG Tablet PO (14:12)
[2021-09-24] MEDS: Acetaminophen 325 MG Tablet 650 MG PO (14:12)
[2021-09-24] MEDS: Gabapentin 300 MG Capsule PO (14:12)
--- NOTE | 2021-09-24 15:06 | CHAPLAIN ---
Type of Pastoral Visit ___ Initial Visit ___ Follow-up Visit ___ On-call Visit ___ General Patient Visit ___ Spiritual Assessment ___ Family Conference ___ Bereavement ___ Rapid Response ___ Code Blue ___ Other (describe below) Pastoral Care Referral From ___ Patient ___ Family ___ Nurse ___ Physician ___ Bus And Sys Integration Senior Manager ___ Internal Grinder Set Up Operator ___ Other (describe below) Sacrament/Intervention ___ Active listening ___ Anointing ___ Orthodoxy ___ Bereavement ___ Communion ___ Rula exploration ___ ___ Life review ___ Prayer ___ Reconciliation ___ Sacrament of Sick ___ Supportive presence ___ Wedding ___ Other (describe below) Pastoral Comments patient is sleeping; mother is at bedside; mother came from [place] yesterday to be here; offer of support given to parent; a return visit is planned
--- NOTE | 2021-09-24 15:55 | DS.PCM_ITS ---
Providers Date of Admission: 09/21/21 Date of Discharge: 09/24/21 Primary Care Physician: Clair Primary Care Phys Consultations 09/21/21 21:09 Consult: Coffin Maker / Pulmonary Medicine Routine Consulting Provider: Pulmonary Medicine serge [place] Reason for Consult: Multifocal cavitary lung lesions EMERGENT Consult: No Notified: Yes Date Notified: 09/21/21 Time Notified: 06:40 Method of Notification: Text 09/22/21 11:13 Consult: Infectious Disease Routine Consulting Provider: Moiz Zarate Reason for Consult: Discitis/vertebral osteomyelitis EMERGENT Consult: No Notified: Yes Date Notified: 09/24/21 Time Notified: 07:25 Method of Notification: Answering Service Reason For Visit: BILATERAL PNEUMONIA Diagnosis Discharge Diagnosis (1) Active intravenous drug use: Status: Acute Code(s): F19.90 - Other psychoactive substance use, unspecified, uncomplicated (2) Acute hyponatremia: Status: Acute Code(s): E87.1 - Hypo-osmolality and hyponatremia (3) Multifocal pneumonia: Status: Acute Code(s): J18.9 - Pneumonia, unspecified organism (4) Vertebral osteomyelitis, acute: Status: Acute Code(s): M46.20 - Osteomyelitis of vertebra, site unspecified (5) Discitis: Status: Acute Code(s): M46.40 - Discitis, unspecified, site unspecified Qualifiers: Spinal region: lumbar Qualified Code(s): M46.46 - Discitis, unspecified, lumbar region (6) Endocarditis: Status: Acute Code(s): I38 - Endocarditis, valve unspecified Medications at Discharge Home Medications azithromycin 250 mg PO UD #1 box 10/16/19 cyclobenzaprine 10 mg PO TID PRN #20 tablet 09/06/21 naproxen 500 mg PO BID PRN #20 tab 09/06/21 Hospital Course Summary of Care Provided Hospital Course: This is 45-year-old female with history of IVDA, fentanyl use admitted with fever, generalized weakness, acute on chronic back pain for last 4 to 5 days prior to admission on 09/21/2021. Her initial work-up shows MRSA bacteremia with septic bilateral pulmonary emboli, infective endocarditis. Her detailed evaluation, medical diagnosis, assessment and hospital course as follows 1. Acute MRSA bacteremia/septic emboli/acute discitis/vertebral osteomyelitis/tricuspid valve endocarditis: Patient is being admitted with IVDA fentanyl use withdrawal symptoms. CT chest shows bilateral cavitary lesions with air-fluid levels, largest measuring 51 mm in right upper lobe. Left upper lobectomy changes. Small left pneumothorax less than 10%. Patient was evaluated by retention specialist and recommended ID consult in long-term antibiotic. On IV cefepime and vancomycin. Abdomen pelvis CT shows hepatosplenomegaly. Patient had lumbar spine MRI which showed L5-S1 vertebral osteomyelitis and discitis. No epidural or paraspinal abscesses. Blood culture on 09/21/2021, 09/22 shows gram-positive cocci in cluster, PCR testing shows MRSA. Patient has r ight-sided triple-lumen catheter. Urine culture positive of MRSA colony count 11,000-25,000. On archeology professor patient sinus tachycardia, not tachypneic or hypoxic. Leukocytosis resolved. 2D echo shows multiple vegetations on the tricuspid valve measuring 1.5 x 0.3 cm and 1.2 x 1.0 cm with mild TR. PASP 35 mmHg. Normal mitral valve and aortic valve. Normal pulmonic valve. No pericardial ef fusion. EF 55%. ID recommended transfer to tertiary care for cardiac surgery evaluation. I called multiple hospital transfer lines. [facility] transfer line called and had a conference call with hospitalist and cardiothoracic surgeon patient was accepted for further management including cardiac surgery. 2. Acute opioid withdrawal, last COWS score is 5. CINA score is 3. On buprenorphine along with other adjunctive medication to control withdrawal symptoms 3. Acute microcytic anemia possible due to infective endocarditis/chronic disease: Patient hemoglobin dropped from 7.8-6.3. Serum iron low, TIBC low and ferritin high. 1 unit PRBC ordered. Monitor CBC. Patient does not have any active external overt bleeding 4. Hypokalemia: Resolved 5. Hypotonic hypovolemic hyponatremia: Patient admitting serum sodium was 125, increased to 137 normal. Hyponatremia resolved. 6. Elevated transaminases probably from infective endocarditis and chronic hepatitis C: Hep C antibody positive. HIV 1 and 2 antibody negative. COVID-19 PCR not detected. Monitor liver chemistry. 7. DVT prophylaxis?Lovenox discontinued because of severe anemia. Total time spent, exact 35 minutes on examination, coordination of care with nurses and ancillary staff, review of imaging and blood test and coordination of care for [facility] Physical Exam Narrative Please see the progress note of the same date Weight / BMI Weight Weight: 119 lb 11.376 oz Body Mass Index (BMI) 18.7 ABG / Lab / Microbiology Data Result Diagrams: 09/24/21 07:50 09/24/21 07:50 Laboratory: Laboratory Results - last 24 hr 09/21/21 18:50: Hepatitis A IgM Ab Negative, Hep Bs Antigen Negative, Hep B Core IgM Ab Negative, Hepatitis C Ab (EIA) >11.0 H 09/23/21 19:44: Random Vancomycin 12.4 09/24/21 07:50: WBC 9.0, RBC 2.49 L, Hgb 6.3 L, Hct 19.1 L, MCV 76.7 L, MCH 25.3 L, MCHC 33.0, RDW Std Deviation 44.9 H, RDW Coeff of Golden 16.8 H, Plt Count 292, MPV 9.8, Immature Gran % (Auto) 1.100 H, Neut % (Auto) 78.3 H, Lymph % (Auto) 13.4 L, [place] % (Auto) 6.4, Eos % (Auto) 0.7, Baso % (Auto) 0.1, Absolute Neuts (auto) 7.0, Absolute Lymphs (auto) 1.21, Nucleated RBC % 0 09/24/21 07:50: Sodium 137, Potassium 4.1, Chloride 112 H, Carbon Dioxide 21.0, Anion Gap 4 L, BUN 28 H, Creatinine 0.78, Estim Creat Clear Calc 78.90, Est GFR (MDRD) Af Amer 103, Est GFR (MDRD) Non-Af 85, BUN/Creatinine Ratio 35.9 H, Glucose 132 H, Calcium 7.2 L, Total Bilirubin 0.60, AST 42 H, ALT 37, Alkaline Phosphatase 131 H, Total Protein 6.0 L, Albumin 1.1 L, Globulin 4.9 H, Albumin/Globulin Ratio 0.2 L 09/24/21 13:03: Blood Type O POSITIVE, Antibody Screen NEGATIVE, Crossmatch See Detail Microbiology: Microbiology 09/21/21 18:50 Blood Culture (Wb) - Left Wrist Blood Culture - Final Meth. resistant Staph. aureus 09/21/21 18:50 Blood Culture (Wb) - Neck Blood Culture - Final Meth. resistant Staph. aureus 09/21/21 19:23 Blood Culture (Wb) - Chest Bacteria Detection (PCR) - Final Meth. resistant Staph. aureus 09/21/21 19:23 Blood Culture (Wb) - Chest Blood Culture - Final Meth. resistant Staph. aureus 09/22/21 14:52 Blood Culture (Wb) - Venous Blood Culture - Preliminary 09/21/21 19:00 Urine Catheter - Catheter Urine Culture - Final Meth. resistant Staph. aureus Radiography Diagnostic Testing: Radiology Impression Shoulder X-Ray 09/23/21 16:00 Meaningful Use Info Meaningful Use Diagnoses (Choose all that apply): None applicable Discharge Plan Admission Admit Date/Time: 09/21/21 19:50 Attending Provider: Hira Granados Primary Care Provider: Care Physician,No Primary Consulting Providers: Les Tucker ; Kyler Montano ; Ernestine Morley DENTAL PRACTITIONER ; Moiz Zarate Discharge Orders/Prescriptions Prescriptions: No Action azithromycin 250 MG tablet 250 mg PO UD Qty: 1 RF: 0 cyclobenzaprine 10 mg tablet 10 mg PO TID PRN (Reason: Muscle Spasm) Qty: 20 RF: 0 naproxen 500 mg tablet 500 mg PO BID PRN Qty: 20 RF: 0 Referrals / Follow Up: Care Physician,No Primary [Primary Care Provider] - Charges/Coding Visit Charges Inpatient E&M: 63880 Disch Hosp
--- NOTE | 2021-09-24 17:21 | NURSING ---
Report called to Jocelyn Donaldson RN.
--- NOTE | 2021-09-24 21:15 | NURSING ---
Pt [facility] for transfer to [facility] Care unit, bed 8 with all belongings. Family aware of transfer.
== END 2021-09-24 21:10 | disposition short-term general hospital (02) | DRG 137 ==
LOC: ED 19:55 → PCU 20:25
PROVIDERS: Internal Medicine; Admitting Provider Family Medicine; Emergency Provider Emergency Medicine; Visit Provider Internal Medicine
DX: J85.1 Abscess of lung with pneumonia (principal); I26.90 Septic pulmonary embolism without acute cor pulmonale; I33.0 Acute and subacute infective endocarditis; R78.81 Bacteremia; E87.1 Hypo-osmolality and hyponatremia; I38 Endocarditis, valve unspecified; D63.8 Anemia in other chronic diseases classified elsewhere; J44.0 Chronic obstructive pulmonary disease with (acute) lower respiratory infection; B18.2 Chronic viral hepatitis C; F11.23 Opioid dependence with withdrawal; M46.27 Osteomyelitis of vertebra, lumbosacral region; D50.9 Iron deficiency anemia, unspecified; F17.210 Nicotine dependence, cigarettes, uncomplicated; M46.46 Discitis, unspecified, lumbar region; E87.6 Hypokalemia; B95.62 Methicillin resistant Staphylococcus aureus infection as the cause of diseases classified elsewhere; B96.89 Other specified bacterial agents as the cause of diseases classified elsewhere; G89.29 Other chronic pain
CPT/HCPCS: 51702; 71045; 71046; 71250; 72158; 73030; 74176; 80048; 80053; 80074; 80202; 81001; 82728; 83540; 83550; 83605; 85025; 85045; 85610; 85652; 85730; 86703; 86850; 86900; 86901; 86920; 86922; 87040; 87077; 87086; 87088; 87149; 87186; 87635; 93005; 93306; 94640; 97802; 99285; 99406; A9575; J7030; J7050; P9016; A4216; C1751; J3490; U0003; U0005

== ENCOUNTER 2022-11-16 20:34 | Emergency (ER) | payer MEDICAID, SELFPAY ==
[2022-11-16 20:35] VITALS: BP 112/84; PULSE 103; RESP 15; TEMP 36.4; O2SAT 100; BMI 20.5
--- NOTE | 2022-11-16 20:51 | EDS_ITS ---
HPI History of Present Illness Chief Complaint: Cellulitis Informant: patient Narrative Narrative: Patient presents with 4 days of spontaneous onset ulcerative wounds with surrounding redness and pain in the proximal right lower leg. Distal to this, she has a chronic wound that has been there for months almost a year, she states it looks better now than it normally does. Subjective fevers the first day but none since that she knows of. No other systemic symptoms. Patient states she has a history of a blood infection with endocarditis, this was about a year ago she was admitted to the hospital and sent home on IV antibiotics, she says that she had a blood clot but I was not discharged on any blood thinners and she was supposed to have 2 heart valves replaced last summer. She states she has not had this done and has not seen any doctors because of multiple social issues including lack of transportation she does not have a PCP either. She has a history of IV drug use. [facility] Medical History Cortez's palsy Frequent headaches GERD (gastroesophageal reflux disease) Hepatitis C History of blood clots Irritable bowel syndrome Low back pain Meningococcal meningitis with acute meningococcal septicemia MRSA (methicillin resistant Staphylococcus aureus) infection Neuropathy Seasonal allergies Spontaneous pneumothorax Home Medications acetaminophen 325 mg capsule 325 mg PO Q6H PRN 11/22/21 [History Last Taken Unknown] acetaminophen 500 mg capsule 500 mg PO Q4H PRN 11/22/21 [History Last Taken Unknown] albuterol sulfate 2.5 mg/3 mL (0.083 %) solution for nebulization 2.5 mg inhalation Q2H PRN 11/22/21 [History Last Taken Unknown] buprenorphine HCl 2 mg sublingual tablet 2 mg sublingual DAILY 11/22/21 [History Last Taken Unknown] citalopram 10 mg tablet 10 mg PO DAILY 11/22/21 [History Last Taken Unknown] daptomycin 500 mg intravenous solution 500 mg intraperitoneal DAILY 11/22/21 [History Last Taken Unknown] gabapentin 100 mg capsule 100 mg PO .4 times daily 11/22/21 [History Last Taken Unknown] heparin (porcine) 5,000 unit/1,000 mL in 0.9 % sodium chloride IV soln 100 unit intra-arterial Q12H 11/22/21 [History Last Taken Unknown] lidocaine 4 % topical patch 1 patch topical DAILY PRN 11/22/21 [History Last Taken Unknown] multivitamin-iron 9 mg-folic acid 400 mcg-calcium and minerals tablet (Thera M Plus (ferrous fumarate)) 1 tab PO DAILY 11/22/21 [History Last Taken Unknown] nicotine 14 mg/24 hr daily transdermal patch 1 patch transdermal DAILY 11/22/21 [History Last Taken Unknown] nicotine 7 mg/24 hr daily transdermal patch 1 patch transdermal Q24H 11/22/21 [History Last Taken Unknown] ondansetron 4 mg disintegrating tablet 4 mg PO Q8H PRN 11/22/21 [History Last Taken Unknown] pantoprazole 40 mg tablet,delayed release 40 mg PO BID 11/22/21 [History Last Taken Unknown] polyethylene glycol 3350 17 gram/dose oral powder 4 g PO DAILY 11/22/21 [History Last Taken Unknown] sennosides 8.6 mg tablet (Senna Lax) 8.6 mg PO DAILY 11/22/21 [History Last Taken Unknown] cephalexin 500 mg capsule 500 mg PO Q6 #40 CAPSULES 11/16/22 [Rx Last Taken Unknown] Allergy/AdvReac Type Severity Reaction Status Date / Time clindamycin Allergy Hives Verified 11/16/22 20:38 methadone Allergy Swelling Verified 11/16/22 20:38 nitrofurantoin Allergy Hives Verified 11/16/22 20:38 [From Macrobid] Family History Other Alcoholism Asthma CVA (cerebral vascular accident) Cancer Depression Diabetes Heart disease High cholesterol Hypertension Myocardial infarction Surgical History H/O knee surgery History of bone graft History of skin graft S/P lobectomy of lung Social History Smoking Status: Current every day smoker tobacco type: cigarettes ROS ROS ED Constitutional Constitutional ED: Reports fever(s) and subjective; Denies chills Musculoskeletal Musculoskeletal: Reports extremity pain; Denies neck pain Integumentary Reports rash and wounds; Denies Abrasions Neurologic Neurologic: Denies paresthesias or weakness EXAM Physical Exam Const Vital Signs: 11/16/22 20:35 Temperature 97.5 F L Temperature Source Temporal Pulse Rate 103 H Respiratory Rate 15 Blood Pressure 112/84 H Blood Pressure Mean 93 Pulse Ox 100 Oxygen Delivery Method Room Air Positive well nourished and well developed General Appearance ED: well developed and NAD Neck full ROM and supple Chest Wall inspection of chest normal and palpation of chest normal Resp normal respiratory effort and clear to auscultation bilaterally Cardio regular rate, regular rhythm and no murmurs Rate: other Other Details: Mildly tachycardic Narrative: No inguinal lymphadenopathy Back/Spine normal ROM and normal to inspection Extremity Extremity Narrative: Patient has a large superficially ulcerated chronic wound on her right plummer with thick purulence versus granulation tissue present. No significant surrounding erythema. Proximal to this, just distal to the knee, there are several more superficial ulcerations with a large area of surrounding erythema that is tender, there is no lymphangitis, no abscess, for range of motion of the knee without difficulty. No definite effusion. Neuro oriented x3, no focal motor deficits and no sensory deficits noted Sensorium / Orientation: alert Psych mental status grossly normal and thought process normal Skin Skin Narrative: Wounds right lower extremity see above. No other rashes or petechia/purpura seen. MDM MDM MDM Narrative Medical decision making narrative: Clinically the patient does not appear to be septic. She had dressings on the wounds that were stuck to them especially the lower 1. It looks purulent but she states this is better than it usually looks. She has not seen wound care. She said she went to 1 other ER other than this 1 once for this couple months ago. She states basically the acute symptoms are more proximal to this closer to her knee. Clinically she does not have a murmur, and clinically she does not appear septic although she does have a mild tachycardia. Given her history I obtained blood cultures and basic labs, those are reviewed and very normal. X- rays of the tibia and fibula were obtained, 2 views of mitral rotation showed no subcutaneous gas or obvious signs of osteomyelitis. IV vancomycin given her documented history of MRSA, as well as Ancef, however since the patient has very poor veins due to IV drug use, nursing after multiple attempts and using ultrasound were unable to obtain an IV on her. Therefore, she will instead be given Ancef IM and prescribed cephalexin since none of this appears to be an abscess/MRSA, follow-up advised. Referred to the next doctor on the unassigned list, Dr. Mederos. Lab Data Attestation: I reviewed the patient's lab results. Labs: Laboratory Results - last 24 hr 11/16/22 11/16/22 11/16/22 20:50 21:03 21:03 WBC 4.8 RBC 4.46 Hgb 12.6 Hct 41.1 MCV 92.2 MCH 28.3 MCHC 30.7 L RDW Std Deviation 46.7 H RDW Coeff of Golden 13.7 Plt Count 440 MPV 10.8 Immature Gran % (Auto) 1.300 H Neut % (Auto) 51.1 Lymph % (Auto) 35.1 Harlan % (Auto) 7.5 Eos % (Auto) 4.0 Baso % (Auto) 1.0 Absolute Neuts (auto) 2.5 Absolute Lymphs (auto) 1.68 Nucleated RBC % 0 Sodium 136 Potassium 4.2 Chloride 103 Carbon Dioxide 31.0 Anion Gap 2 L BUN 9 Creatinine 0.66 Estim Creat Clear Calc 102.88 Est GFR (MDRD) Af Amer 125 Est GFR (MDRD) Non-Af 103 BUN/Creatinine Ratio 13.7 Glucose 97 Lactic Acid 1.0 Calcium 9.2 Discharge Plan Triage Chief Complaint: Cellulitis ED Provider: Demetrius Colindres Dx/Rx/DC Orders Clinical Impression: Cellulitis of right anterior lower leg Instructions: Cellulitis Dc Prescriptions: New cephalexin [cephalexin] 500 mg capsule 500 mg PO Q6 Qty: 40 0RF No Action acetaminophen 325 mg capsule 325 mg PO Q6H PRN acetaminophen 500 mg capsule 500 mg PO Q4H PRN albuterol sulfate 2.5 mg /3 mL (0.083 %) solution for nebulization 2.5 mg inhalation Q2H PRN buprenorphine HCl 2 mg tablet, sublingual 2 mg sublingual DAILY citalopram 10 mg tablet 10 mg PO DAILY daptomycin 500 mg recon soln 500 mg intraperitoneal DAILY gabapentin 100 mg capsule 100 mg PO .4 times daily heparin (porcine) in 0.9% NaCl 5,000 unit/1,000 mL parenteral solution 100 unit intra-arterial Q12H Rx Instructions: instill into arterial cannula lidocaine 4 % adhesive patch,medicated 1 patch topical DAILY PRN nicotine 14 mg/24 hr patch 24 hour 1 patch transdermal DAILY nicotine 7 mg/24 hr patch 24 hour 1 patch transdermal Q24H ondansetron 4 mg tablet,disintegrating 4 mg PO Q8H PRN pantoprazole 40 mg tablet,delayed release (DR/EC) 40 mg PO BID polyethylene glycol 3350 17 gram/dose powder 4 g PO DAILY sennosides [Senna Lax] 8.6 mg tablet 8.6 mg PO DAILY Thera M Plus (ferrous fumarat) 9 mg iron-400 mcg tablet 1 tab PO DAILY Primary Care Provider: Care Physician,No Primary Referrals: Yesenia Mederos MD [Med Staff - Photo Journalist] - 3-5 Days Care Physician,No Primary [Primary Care Provider] - Disposition Disposition: Home, Self Care
[2022-11-16 21:11] LABS: Absolute Lymphocyte Count 1.68 X10^3/uL (0.83-4.51); Absolute Neutrophil Count 2.5 X10^3/uL (2.0-7.7); Basophil# 0.05 X10^3/uL; Eosinophil# 0.19 X10^3/uL; Hematocrit 41.1 % (37-47); Hemoglobin 12.6 g/dL (12.0-15.0); Lymphocyte # 1.68 X10^3/ul (0.83-4.51); Lymphocyte % 35.1 % (19-41); Mean Corp Hgb Conc 30.7 g/dL (32-36); Mean Corpuscular Hgb 28.3 pg (27.0-32.0); Mean Corpuscular Volume 92.2 fL (81-99); Mean Platelet Vol. 10.8 fl (6.2-12.0); Monocyte# 0.36 X10^3/uL; Monocyte% 7.5 % (0-10); NRBC Flagged by Analyzer 0 % (0-5); Neutrophil # 2.45 X10^3/uL (2.7-7.7); Neutrophil % 51.1 % (47-70); Platelet Count 440 K/mm3 (150-450); RBC Distribution Width CV 13.7 % (11.6-14.6); RBC Distribution Width SD 46.7 fl (35.1-43.9); Red Blood Count 4.46 M/mm3 (4.2-5.4); White Blood Count 4.8 K/mm3 (4.4-11.0)
[2022-11-16 21:12] LABS: POSITIVE COUNT NO; POSITIVE DIFFERENTIAL NO; POSITIVE MORPHOLOGY NO
[2022-11-16 21:27] LABS: Anion Gap 2 (5-15); BUN 9 mg/dL (7-18); BUN/Creat Ratio 13.7 RATIO (10-20); Calcium,Total 9.2 mg/dL (8.5-10.1); Chloride 103 mmol/L (98-107); Creatinine, Serum 0.66 mg/dL (0.55-1.02); EST Glomerular Filtration Rate 103 mL/min (>60); Est Glom Filt Rate - Afr Amer 125 mL/min (>60); Estimated Creatinine Clearance 102.88 ml/min; Glucose 97 mg/dL (74-106); Potassium 4.2 mmol/L (3.5-5.1); Sodium Level 136 mmol/L (136-145)
[2022-11-16 21:39] VITALS: PULSE 69; RESP 16; O2SAT 97
--- NOTE | 2022-11-16 21:50 | RAD_ITS ---
INDICATION: pain/infection EXAMINATION/TECHNIQUE: X-RAY - RIGHT XR Tibia/Fibula 2 Views 2 VIEWS COMPARISON: None. FINDINGS: Intramedullary fixation demarcus in the tibia transfixing old fracture mid tibia. There is zone of relative sclerosis midsternum in the tibia, with fusion to the adjacent fibula, likely related to prior trauma and surgery. There is a subtle irregularity along the lateral tibial cortical margin at this level. No acute fracture demonstrated. No dislocation. Diffuse soft tissue swelling proximal through mid tibial level, most pronounced anteriorly. RAD/Tibia & Fibula 2 Views IMPRESSION: ORIF with old tibial fracture and postsurgical change. Focal irregularity along the lateral tibial margin at the site of prior fracture, cannot entirely exclude osteomyelitis. MRI may be helpful for further evaluation. Electronically Signed: Kayleen Olivarez MD at 22:31 EDT ,
[2022-11-16] MEDS: Cefazolin 1 GM/5 ML Vial IM (22:31)
== END 2022-11-16 22:36 | disposition home or self-care (01) ==
PROVIDERS: Emergency Provider Emergency Medicine; Visit Provider Emergency Medicine
DX: L03.115 Cellulitis of right lower limb (principal); F17.210 Nicotine dependence, cigarettes, uncomplicated
CPT/HCPCS: 73590; 80048; 83605; 85025; 87040; 96372; 99283; A4216

== ENCOUNTER 2022-12-31 06:23 | Observation (INO) | payer MEDICAID, SELFPAY ==
[2022-12-31 06:24] VITALS: BP 127/99; PULSE 98; RESP 20; TEMP 36; O2SAT 98; BMI 21.1
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
[2022-12-31 07:22] LABS: Amphetamine Urine VISTA POSITIVE (<1000 ng/mL); Barbiturate Urine VISTA NEGATIVE (< 200 ng/mL); Benzodiazepine Urine VISTA NEGATIVE (< 200 ng/mL); Cocaine Urine VISTA NEGATIVE (< 300 ng/mL); Ecstacy Urine VISTA POSITIVE (< 500 ng/mL); Methadone Urine VISTA NEGATIVE (< 300 ng/mL); PCP Urine VISTA NEGATIVE (< 25 ng/mL); THC Urine VISTA NEGATIVE (< 50 ng/mL); Vista UDS pH Range 6
--- NOTE | 2022-12-31 07:30 | PCM.HP.STD ---
HPI - General General Date of Admission: 12/31/22 Date of Service: 12/31/22 Chief Complaint: For detoxification from opioids HPI Narrative XIOMARA HILTON, is a 47 F with past medical history significant for polysubstance abuse, history of endocarditis awaiting valvular repair who presents to the emergency department with desire to undergo detoxification from chronic opioid use. Per patient she shoots and snorts. Patient's last use was almost 12 hours prior to her admission. Admitted to regular nursing floor for subsequent management [facility] Medical History Cortez's palsy Frequent headaches GERD (gastroesophageal reflux disease) Hepatitis C History of blood clots Irritable bowel syndrome Low back pain Meningococcal meningitis with acute meningococcal septicemia MRSA (methicillin resistant Staphylococcus aureus) infection Neuropathy Seasonal allergies Spontaneous pneumothorax Home Medications NK 12/31/22 [History Last Taken Unknown] Allergy/AdvReac Type Severity Reaction Status Date / Time clindamycin Allergy Hives Verified 12/31/22 06:23 methadone Allergy Swelling Verified 12/31/22 06:23 nitrofurantoin Allergy Hives Verified 12/31/22 06:23 [From Macrobid] Family History Other Alcoholism Asthma CVA (cerebral vascular accident) Cancer Depression Diabetes Heart disease High cholesterol Hypertension Myocardial infarction Surgical History H/O knee surgery History of bone graft History of skin graft S/P lobectomy of lung Social History Smoking Status: Current every day smoker tobacco type: cigarettes ROS ROS Narrative GENERAL: denies fever, chills, night sweats HEENT: denies headache, sinus congestion, RESPIRATORY: denies cough, sputum production, CARDIAC: denies chest pain, palpitations, orthopnea, PND GASTROINTESTINAL: Abdominal pain GENITOURINARY: denies dysuria, urgency, EXTREMITY: denies swelling MUSCULOSKELETAL: denies current joint pain NEUROLOGIC: denies focal numbness, HEMATOLOGIC: denies easy bruising INTEGUMENT: denies rashes PSYCHIATRIC: Anxiety Vital Signs Vital Signs Vital Signs: 12/31/22 06:24 Temperature 96.8 F L Temperature Source Temporal Pulse Rate 98 Respiratory Rate 20 H Blood Pressure 127/99 H Blood Pressure Mean 108 Pulse Ox 98 Weight Weight: 63 kg Body Mass Index (BMI) 21.1 Physical Exam Narrative GENERAL: cooperative HEENT: Atraumatic; normocephalic EYES; Anicteric, Normal Conjunctiva NECK; supple, normal thyroid, RESPIRATORY: Diminished to auscultation CARDIOVASCULAR: Regular S1 S2, GI: soft, normoactive bowel sounds, : No Renal angle tenderness; EXTREMITIES: No edema, no clubbing, MUSCULOSKELETAL: no muscle wasting NEURO: Awake; no lateralizing signs. SKIN: Right lower extremity wound in surgical dressing PSYCH; Flat affect Results Lab / Micro Data Labs: Laboratory Results - last 24 hr 12/31/22 06:54: Urine Opiates Screen NEGATIVE, Urine Methadone Screen NEGATIVE, Ur Barbiturates Screen NEGATIVE, Ur Phencyclidine Scrn NEGATIVE, Ur Amphetamines Screen POSITIVE H, MDMA (Ecstasy) Screen POSITIVE H, U Benzodiazepines Scrn NEGATIVE, Urine Cocaine Screen NEGATIVE, U Cannabinoids Screen NEGATIVE, Ur Drug Screen Comment Assessment & Plan Assessment/Plan (1) Fentanyl use disorder, mild, abuse: PLAN: Plan Patient is a 47-year-old lady with history of polysubstance dependence admitted for to undergo medical stabilization from chronic opiate 1. 1. Acute opioid withdrawal - Patient has been admitted to regular nursing floor, managed buprenorphine taper along with other adjunctive medications for medical stabilization 2. Polysubstance dependence Including opioid and methamphetamine counseled on cessation 3. History of MRSA bacteremia with subsequent septic emboli with discitis vertebral osteomyelitis and endocarditis ? Patient apparently awaiting valve repair pending patient becoming sober 4. Tobacco dependence - Counseled on cessation, offered nicotine patch for tobacco cravings 5. DVT prophylaxis ? Low risk encourage early ambulation Time spent in the patient's overall evaluation,decision-making process, review of diagnostic data, adjustment of management, discussion with other providers, nursing nursing and ancillary staff involved in patient's care documentation, 55 Minutes Charges/Coding Visit Charges Inpatient E&M: 18795 Init Hosp L2
[2022-12-31 07:34] VITALS: BP 132/99; PULSE 71; RESP 18; TEMP 36.6; O2SAT 100
[2022-12-31 08:02] LABS: Absolute Lymphocyte Count 1.56 X10^3/uL (0.83-4.51); Absolute Neutrophil Count 2.7 X10^3/uL (2.0-7.7); Basophil# 0.02 X10^3/uL; Basophil% 0.4 % (0-1); Eosinophil# 0.11 X10^3/uL; Eosinophils% 2.3 % (0-5); Hematocrit 43.3 % (37-47); Hemoglobin 14.1 g/dL (12.0-15.0); Lymphocyte # 1.56 X10^3/ul (0.83-4.51); Mean Corp Hgb Conc 32.6 g/dL (32-36); Mean Corpuscular Hgb 28.3 pg (27.0-32.0); Mean Corpuscular Volume 86.9 fL (81-99); Mean Platelet Vol. 9.8 fl (6.2-12.0); Monocyte# 0.38 X10^3/uL; NRBC Flagged by Analyzer 0 % (0-5); Neutrophil # 2.65 X10^3/uL (2.7-7.7); Neutrophil % 56.1 % (47-70); Platelet Count 295 K/mm3 (150-450); RBC Distribution Width CV 13.3 % (11.6-14.6); RBC Distribution Width SD 42.6 fl (35.1-43.9); Red Blood Count 4.98 M/mm3 (4.2-5.4); White Blood Count 4.7 K/mm3 (4.4-11.0)
[2022-12-31 08:27] LABS: ALB/GLOB Ratio 0.5 RATIO (0.9-2.4); AST(SGOT) 12 U/L (15-37); Alanine Aminotransfer ALT/SGPT 11 U/L (13-56); Albumin, Serum 2.8 g/dL (3.2-5.0); Alkaline Phosphatase 89 U/L (45-117); Anion Gap 5 (5-15); BUN 12 mg/dL (7-18); BUN/Creat Ratio 18.2 RATIO (10-20); Calcium,Total 9.1 mg/dL (8.5-10.1); Chloride 104 mmol/L (98-107); Creatinine, Serum 0.66 mg/dL (0.55-1.02); EST Glomerular Filtration Rate 102 mL/min (>60); Est Glom Filt Rate - Afr Amer 124 mL/min (>60); Estimated Creatinine Clearance 105.93 ml/min; Globulin 5.7 g/dL (2.2-4.2); Glucose 95 mg/dL (74-106); Potassium 4.4 mmol/L (3.5-5.1); Protein, Total 8.5 g/dL (6.4-8.2); Sodium Level 135 mmol/L (136-145)
[2022-12-31 08:31] LABS: Internal QC Validated? YES +Cl - CLEAR BKGD; Pregnancy, Urine Negative Negative
[2022-12-31 09:49] VITALS: BMI 21.0
[2022-12-31 10:43] VITALS: BP 95/58; PULSE 77; RESP 14; TEMP 36.5; O2SAT 100
--- NOTE | 2022-12-31 10:52 | WOUNDNOTE ---
wound photo: right lower leg
--- NOTE | 2022-12-31 11:46 | ADDICTION ---
This telegraphic typewriter mechanic met with PT to conduct ASAM, MSE, AUDIT, DUDIT assessments and to plan for d/c. PT A+Ox4 and participated actively. All assessments completed and placed in PT's chart. PT plans to f/u with [facility] for follow-up treatment services. PT did not indicate a need for transportation post d/c from [facility].
[2022-12-31 14:14] VITALS: BP 93/71; PULSE 78; RESP 12; TEMP 37.1; O2SAT 99
[2022-12-31 14:29] LABS: M R Staph aureus DNA By PCR POSITIVE (Negative); Probe Check PASS; Staph aureus DNA By PCR POSITIVE (Negative)
[2022-12-31] MEDS: Ensure Plus High Protein 120 ML LIQUID PO (17:00)
[2022-12-31] MEDS: Juven (unflavored) Packet 1 PACKET PO (17:00)
[2022-12-31] MEDS: Doxycycline 100 MG CAPSULE PO ×2 (17:01→21:11)
[2022-12-31] MEDS: Methocarbamol 750 MG Tablet 1500 MG PO (17:05)
[2022-12-31 18:04] VITALS: BP 95/62; PULSE 98; RESP 16; TEMP 37.3; O2SAT 99
[2022-12-31 21:00] VITALS: BP 97/68; PULSE 80; RESP 16; TEMP 37.2; O2SAT 94
[2022-12-31] MEDS: Buprenorphine HCl 2 MG TAB.SUBL SL (21:10)
[2022-12-31] MEDS: hydrOXYzine PAM 25 MG Capsule 50 MG PO (21:10)
[2022-12-31] MEDS: traZODone 100 MG Tablet PO (21:10)
[2022-12-31] MEDS: Ibuprofen 600 MG Tablet PO (21:11)
[2023-01-01 04:00] VITALS: BP 107/82; PULSE 78; RESP 18; TEMP 36.4; O2SAT 95
[2023-01-01] MEDS: Buprenorphine HCl 2 MG TAB.SUBL SL ×3 (05:26→22:30)
--- NOTE | 2023-01-01 07:17 | PCM.PN.HOSP ---
Reason for Visit Reason for Visit: Diagnoses Opioid abuse, uncomplicated (12/31/22) Subjective Subjective Patient is a 47-year-old lady with history of polysubstance dependence admitted for to undergo medical stabilization from chronic opiate Objective Data Objective Data Vital Signs: Vital Signs Temp Pulse Resp BP Pulse Ox O2 Del Method 97.6 F L 78 18 107/82 H 95 Room Air 01/01/23 04:00 01/01/23 04:00 01/01/23 04:00 01/01/23 04:00 01/01/23 04:00 01/01/23 04:00 Oxygen Delivery Method Room Air Weight: 62.8 kg Body Mass Index (BMI) 21.0 Lab / Micro Data Result Diagrams: 12/31/22 07:51 12/31/22 07:51 Labs: Laboratory Results - last 24 hr 12/31/22 06:54: Urine Opiates Screen NEGATIVE, Urine Methadone Screen NEGATIVE, Ur Barbiturates Screen NEGATIVE, Ur Phencyclidine Scrn NEGATIVE, Ur Amphetamines Screen POSITIVE H, MDMA (Ecstasy) Screen POSITIVE H, U Benzodiazepines Scrn NEGATIVE, Urine Cocaine Screen NEGATIVE, U Cannabinoids Screen NEGATIVE 12/31/22 06:54: Urine Test Negative 12/31/22 07:51: WBC 4.7, RBC 4.98, Hgb 14.1, Hct 43.3, MCV 86.9, MCH 28.3, MCHC 32.6, RDW Std Deviation 42.6, RDW Coeff of Golden 13.3, Plt Count 295, MPV 9.8, Immature Gran % (Auto) 0.200, Neut % (Auto) 56.1, Lymph % (Auto) 33.0, [place] % (Auto) 8.0, Eos % (Auto) 2.3, Baso % (Auto) 0.4, Absolute Neuts (auto) 2.7, Absolute Lymphs (auto) 1.56, Nucleated RBC % 0 12/31/22 07:51: Sodium 135 L, Potassium 4.4, Chloride 104, Carbon Dioxide 26.0, Anion Gap 5, BUN 12, Creatinine 0.66, Estim Creat Clear Calc 105.93, Est GFR (MDRD) Af Amer 124, Est GFR (MDRD) Non-Af 102, BUN/Creatinine Ratio 18.2, Glucose 95, Calcium 9.1, Total Bilirubin 0.20, AST 12 L, ALT 11 L, Alkaline Phosphatase 89, Total Protein 8.5 H, Albumin 2.8 L, Globulin 5.7 H, Albumin/Globulin Ratio 0.5 L 12/31/22 10:35: S.aureus Protein A PCR POSITIVE H, MRSA (PCR) POSITIVE H Physical Exam Narrative GENERAL: cooperative HEENT: Atraumatic; normocephalic EYES; Anicteric, Normal Conjunctiva NECK; supple, normal thyroid, RESPIRATORY: Diminished to auscultation CARDIOVASCULAR: Regular S1 S2, GI: soft, normoactive bowel sounds, : No Renal angle tenderness; EXTREMITIES: No edema, no clubbing, MUSCULOSKELETAL: no muscle wasting NEURO: Awake; no lateralizing signs. SKIN: Right lower extremity wound in surgical dressing PSYCH; Flat affect Assessment & Plan Assessment/Plan (1) Fentanyl use disorder, mild, abuse: PLAN: Plan Patient is a 47-year-old lady with history of polysubstance dependence admitted for to undergo medical stabilization from chronic opiate 1. Acute opioid withdrawal - Patient has been admitted to regular nursing floor, managed buprenorphine taper along with other adjunctive medications for medical stabilization 2. Polysubstance dependence Including opioid and methamphetamine counseled on cessation 3. History of MRSA bacteremia with subsequent septic emboli with discitis vertebral osteomyelitis and endocarditis ? Patient apparently awaiting valve repair pending patient becoming sober 4. Tobacco dependence - Counseled on cessation, offered nicotine patch for tobacco cravings 5. Chronic right lower extremity wound ? Cultures came back positive for MRSA patient started on Doxy sign 6. DVT prophylaxis ? Low risk encourage early ambulation Time spent in the patient's overall evaluation,decision-making process, review of diagnostic data, adjustment of management, discussion with other providers, nursing nursing and ancillary staff involved in patient's care documentation, 35 Minutes Charges/Coding Visit Charges Inpatient E&M: 73560 Subs Hosp L2
[2023-01-01 09:02] VITALS: BP 129/85; PULSE 85; RESP 16; TEMP 36.6; O2SAT 98
[2023-01-01] MEDS: Doxycycline 100 MG CAPSULE PO ×2 (09:22→22:30)
[2023-01-01] MEDS: hydrOXYzine PAM 25 MG Capsule 50 MG PO ×2 (09:22→22:30)
[2023-01-01] MEDS: Gabapentin 300 MG Capsule PO ×2 (09:22→18:12)
[2023-01-01] MEDS: Ondansetron 8 MG Tablet PO (09:22)
[2023-01-01] MEDS: Dicyclomine 10 MG Capsule 20 MG PO ×2 (09:22→22:30)
[2023-01-01 14:07] VITALS: BP 124/78; PULSE 79; RESP 16; TEMP 36.4; O2SAT 97
[2023-01-01] MEDS: cloNIDine HCl 0.1 MG Tablet PO (14:14)
[2023-01-01] MEDS: Methocarbamol 750 MG Tablet 1500 MG PO (18:12)
[2023-01-01 20:15] VITALS: BP 130/71; PULSE 74; RESP 16; TEMP 36.6; O2SAT 97
[2023-01-01] MEDS: traZODone 100 MG Tablet PO (22:30)
[2023-01-01] MEDS: Ibuprofen 600 MG Tablet PO (22:30)
[2023-01-02 03:00] VITALS: BP 138/76; PULSE 76; RESP 16; TEMP 36.6; O2SAT 96
[2023-01-02] MEDS: Methocarbamol 750 MG Tablet 1500 MG PO (05:48)
[2023-01-02] MEDS: Gabapentin 300 MG Capsule PO (05:48)
[2023-01-02] MEDS: Buprenorphine HCl 2 MG TAB.SUBL SL ×3 (05:48→21:53)
--- NOTE | 2023-01-02 07:34 | PCM.PN.HOSP ---
Reason for Visit Reason for Visit: Diagnoses Opioid abuse, uncomplicated (12/31/22) Subjective Subjective patient is tolerating the buprenorphine taper well so far Objective Data Objective Data Vital Signs: Vital Signs Temp Pulse Resp BP Pulse Ox O2 Del Method 98 F 76 16 138/76 H 96 Room Air 01/02/23 03:00 01/02/23 03:00 01/02/23 03:00 01/02/23 03:00 01/02/23 03:00 01/02/23 03:00 Oxygen Delivery Method Room Air Weight: 62.8 kg Body Mass Index (BMI) 21.0 Lab / Micro Data Result Diagrams: 12/31/22 07:51 12/31/22 07:51 Micro: Microbiology 12/31/22 10:35 Wound - Leg, Right Gram Stain - Final 12/31/22 10:35 Wound - Leg, Right Wound Culture - Preliminary Gram negative demarcus Staphylococcus aureus Beta streptococcus Physical Exam Narrative GENERAL: cooperative HEENT: Atraumatic; normocephalic EYES; Anicteric, Normal Conjunctiva NECK; supple, normal thyroid, RESPIRATORY: Diminished to auscultation CARDIOVASCULAR: Regular S1 S2, GI: soft, normoactive bowel sounds, : No Renal angle tenderness; EXTREMITIES: No edema, no clubbing, MUSCULOSKELETAL: no muscle wasting NEURO: Awake; no lateralizing signs. SKIN: Right lower extremity wound in surgical dressing PSYCH; Flat affect Assessment & Plan Assessment/Plan (1) Fentanyl use disorder, mild, abuse: PLAN: Plan Patient is a 47-year-old lady with history of polysubstance dependence admitted for to undergo medical stabilization from chronic opiate 1. Acute opioid withdrawal - Patient has been admitted to regular nursing floor, managed buprenorphine taper along with other adjunctive medications for medical stabilization ? 01/02/2023 patient is tolerating the buprenorphine taper well so far 2. Polysubstance dependence Including opioid and methamphetamine counseled on cessation 3. History of MRSA bacteremia with subsequent septic emboli with discitis vertebral osteomyelitis and endocarditis ? Patient apparently awaiting valve repair pending patient becoming sober 4. Tobacco dependence - Counseled on cessation, offered nicotine patch for tobacco cravings 5. Chronic right lower extremity wound ? Cultures came back positive for MRSA patient started on Doxy sign 6. DVT prophylaxis ? Low risk encourage early ambulation Time spent in the patient's overall evaluation,decision-making process, review of diagnostic data, adjustment of management, discussion with other providers, nursing nursing and ancillary staff involved in patient's care documentation, 35 Minutes Charges/Coding Visit Charges Inpatient E&M: 54872 Subs Hosp L2
--- NOTE | 2023-01-02 08:42 | WOUNDNOTE ---
wound photo: right lower leg
[2023-01-02 09:25] VITALS: BP 140/95; PULSE 80; RESP 16; TEMP 36.8; O2SAT 97
[2023-01-02] MEDS: Doxycycline 100 MG CAPSULE PO ×2 (09:31→21:53)
[2023-01-02 13:49] VITALS: BP 149/100; PULSE 75; RESP 16; TEMP 36.7; O2SAT 97
[2023-01-02] MEDS: Ibuprofen 600 MG Tablet PO (21:57)
[2023-01-02] MEDS: traZODone 100 MG Tablet PO (21:57)
[2023-01-02 22:05] VITALS: BP 155/97; PULSE 69; RESP 17; TEMP 36.8; O2SAT 96
[2023-01-03 04:05] VITALS: BP 152/103; PULSE 77; RESP 16; TEMP 37.4; O2SAT 97
--- NOTE | 2023-01-03 07:04 | PCM.PN.HOSP ---
Reason for Visit Reason for Visit: Diagnoses Opioid abuse, uncomplicated (12/31/22) Subjective Subjective Symptoms much improved plan is for patient to be assessed for possible discharge Objective Data Objective Data Vital Signs: Vital Signs Temp Pulse Resp BP Pulse Ox O2 Del Method 99.3 F H 77 16 152/103 H 97 Room Air 01/03/23 04:05 01/03/23 04:05 01/03/23 04:05 01/03/23 04:05 01/03/23 04:05 01/03/23 04:05 Oxygen Delivery Method Room Air Weight: 62.8 kg Body Mass Index (BMI) 21.0 Lab / Micro Data Result Diagrams: 12/31/22 07:51 12/31/22 07:51 Micro: Microbiology 12/31/22 10:35 Wound - Leg, Right Gram Stain - Final 12/31/22 10:35 Wound - Leg, Right Wound Culture - Preliminary Serratia marcescens Staphylococcus aureus Streptococcus group G Physical Exam Narrative GENERAL: cooperative HEENT: Atraumatic; normocephalic EYES; Anicteric, Normal Conjunctiva NECK; supple, normal thyroid, RESPIRATORY: Diminished to auscultation CARDIOVASCULAR: Regular S1 S2, GI: soft, normoactive bowel sounds, : No Renal angle tenderness; EXTREMITIES: No edema, no clubbing, MUSCULOSKELETAL: no muscle wasting NEURO: Awake; no lateralizing signs. SKIN: Right lower extremity wound in surgical dressing PSYCH; Flat affect Assessment & Plan Assessment/Plan (1) Fentanyl use disorder, mild, abuse: PLAN: Plan Patient is a 47-year-old lady with history of polysubstance dependence admitted for to undergo medical stabilization from chronic opiate 1. Acute opioid withdrawal - Patient has been admitted to regular nursing floor, managed buprenorphine taper along with other adjunctive medications for medical stabilization ? 01/02/2023 patient is tolerating the buprenorphine taper well so far 2. Polysubstance dependence Including opioid and methamphetamine counseled on cessation 3. History of MRSA bacteremia with subsequent septic emboli with discitis vertebral osteomyelitis and endocarditis ? Patient apparently awaiting valve repair pending patient becoming sober 4. Tobacco dependence - Counseled on cessation, offered nicotine patch for tobacco cravings 5. Chronic right lower extremity wound ? Cultures came back positive for MRSA patient started on Doxy sign 6. DVT prophylaxis ? Low risk encourage early ambulation Time spent in the patient's overall evaluation,decision-making process, review of diagnostic data, adjustment of management, discussion with other providers, nursing nursing and ancillary staff involved in patient's care documentation, 35 Minutes Charges/Coding Visit Charges Inpatient E&M: 38650 Subs Hosp L2
[2023-01-03] MEDS: Doxycycline 100 MG CAPSULE PO (09:21)
[2023-01-03] MEDS: Buprenorphine HCl 2 MG TAB.SUBL SL (09:21)
[2023-01-03 10:07] VITALS: BP 156/95; PULSE 64; RESP 15; TEMP 36.6; O2SAT 96
--- NOTE | 2023-01-03 10:28 | PCM.DC.SUM ---
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 Acute opioid withdrawal - Patient has been admitted to regular nursing floor, managed buprenorphine taper along with other adjunctive medications for medical stabilization ? 01/02/2023 patient is tolerating the buprenorphine taper well so far 2. Polysubstance dependence Including opioid and methamphetamine counseled on cessation 3. History of MRSA bacteremia with subsequent septic emboli with discitis vertebral osteomyelitis and endocarditis ? Patient apparently awaiting valve repair pending patient becoming sober 4. Tobacco dependence - Counseled on cessation, offered nicotine patch for tobacco cravings 5. Chronic right lower extremity wound ? Cultures came back positive for MRSA patient started on doxycycline ? Final cultures demonstrated Serratia marcescens as well as MRSA patient discharged on Bactrim 6. DVT prophylaxis ? Low risk encourage early ambulation Time spent in the patient's overall evaluation,decision-making process, review of diagnostic data, adjustment of management, discussion with other providers, nursing nursing and ancillary staff involved in patient's care documentation, 35 Minutes Medications at Discharge Home Medications sulfamethoxazole 800 mg-trimethoprim 160 mg tablet (Bactrim DS) 1 tab PO BID #20 tabs 01/03/23 Hospital Course Summary of Care Provided Minutes Spent on Discharge: 35 Physical Exam Narrative GENERAL: cooperative HEENT: Atraumatic; normocephalic EYES; Anicteric, Normal Conjunctiva NECK; supple, normal thyroid, RESPIRATORY: Diminished to auscultation CARDIOVASCULAR: Regular S1 S2, GI: soft, normoactive bowel sounds, : No Renal angle tenderness; EXTREMITIES: No edema, no clubbing, MUSCULOSKELETAL: no muscle wasting NEURO: Awake; no lateralizing signs. SKIN: Right lower extremity wound in surgical dressing PSYCH; Flat affect Weight / BMI Weight Weight: 62.8 kg Body Mass Index (BMI) 21.0 ABG / Lab / Microbiology Data Result Diagrams: 12/31/22 07:51 12/31/22 07:51 Microbiology: Microbiology 12/31/22 10:35 Wound - Leg, Right Gram Stain - Final 12/31/22 10:35 Wound - Leg, Right Wound Culture - Final Serratia marcescens Meth. resistant Staph. aureus Streptococcus group G D/C Instructions Discharge Diet: No restrictions Discharge Activity: Return to Normal Activity Call your doctor if you observe: Fever of 101 or Higher, Shortness of breath, Fainting spells and Chest pain Meaningful Use Info Meaningful Use Diagnoses (Choose all that apply): None applicable Discharge Plan Admission Admit Date/Time: 12/31/22 07:23 Attending Provider: Pavel Torrez Primary Care Provider: Care Physician,No Primary Discharge Orders/Prescriptions Prescriptions: New sulfamethoxazole-trimethoprim [Bactrim DS] 800-160 mg tablet 1 tab PO BID Qty: 20 0RF Referrals / Follow Up: Care Physician,No Primary [Primary Care Provider] - Disposition Disposition (needs filled in before D/C Order can be placed): Home, Self Care Charges/Coding Visit Charges Inpatient E&M: 99399 Disch Hosp >30min
--- NOTE | 2023-01-03 11:34 | PHA.DC.MC ---
Pharmacy Service has performed discharge medication reconciliation and counseling for this patient. 1. BACTRIM DS 1T PO BID X 10 DAYS The patient's discharge medication list was reviewed for discrepancies and discrepancies were resolved. Home Medications sulfamethoxazole 800 mg-trimethoprim 160 mg tablet (Bactrim DS) 1 tab PO BID #20 tabs 01/03/23 The patient was counseled on the following discharge medications and changes in medications for homegoing were reviewed. The Reason for Use, instructions for use, and potential side effects were reviewed for all new medications. The patient's questions regarding all of their medications were answered. The patient was able to verbally demonstrate an understanding of their discharge medications. Patient counseled by director of student aidLew.
== END 2023-01-03 11:45 | disposition home or self-care (01) ==
LOC: ED 06:53 → MS3 08:10
PROVIDERS: Admitting Provider Internal Medicine; Emergency Provider Emergency Medicine; Visit Provider Internal Medicine
DX: F11.23 Opioid dependence with withdrawal (principal); F15.20 Other stimulant dependence, uncomplicated; F17.210 Nicotine dependence, cigarettes, uncomplicated; S81.801A Unspecified open wound, right lower leg, initial encounter; G89.29 Other chronic pain; Z86.14 Personal history of Methicillin resistant Staphylococcus aureus infection; Z86.19 Personal history of other infectious and parasitic diseases; K21.9 Gastro-esophageal reflux disease without esophagitis; I38 Endocarditis, valve unspecified; X58.XXXA Exposure to other specified factors, initial encounter; B95.62 Methicillin resistant Staphylococcus aureus infection as the cause of diseases classified elsewhere
CPT/HCPCS: 36415; 80053; 80307; 81025; 85025; 87070; 87077; 87186; 87205; 87640; 97802; 99283; 99406; H0012

== ENCOUNTER 2024-10-20 09:06 | Inpatient (IN) | payer MEDICAID, SELFPAY ==
[2024-10-20] VITALS (11 sets, daily range): BP systolic 93–143; BP diastolic 67–113; PULSE 58–92; RESP 14–20; TEMP 36.4–36.8; O2SAT 93–99; BMI 22.4; BMI 22.0
--- NOTE | 2024-10-20 09:25 | EKG12_ITS ---
Test Reason : Blood Pressure : */* mmHG Vent. Rate : 77 BPM Atrial Rate : 77 BPM P-R Int : 152 ms QRS Dur : 88 ms QT Int : 408 ms P-R-T Axes : 26 40 31 degrees QTcB Int : 461 ms Normal sinus rhythm Normal ECG Confirmed by Des Marquez [id number]), production editor KAMRAN GOMEZ ([id number]) on 10/21/2024 7:55:44 AM Referred By: EDWARD Confirmed By: Des Marquez
--- NOTE | 2024-10-20 09:32 | EX.ED.DYSGE1 ---
HPI History of Present Illness Chief Complaint: General Illness Detail of Chief Complaint: Cool tingly left leg Informant: patient Onset/Context/Timing Onset: Today and Yesterday Context: Sudden Onset Timing: Intermittent Quality: Tingling burning sensation knee down yesterday and abnormal sensation left Location: Left lower extremity Current Severity: Mild Maximum Severity: Moderate Worsened by: Patient does give symptoms of claudication. She cannot tell me how far she Relieved by: Rest Associated Symptoms Associated Symptoms: None Narrative Narrative: Patient is a 48-year-old female. She has history of endocarditis and had a prolonged ICU stay in 2021. She has been seen by plastic surgeon for wound anterior right leg and plan is skin graft. She presents today because her left foot feels cool and feels unusual. Yesterday she had unusual sensation from the knee down left lower extremity and felt cooler on the outside compared to the inside of the leg. She does give symptoms of claudication. She cannot tell me how far she can walk before she has claudication. She states her calf pain resolves when she rests. She denies back pain or radicular pain. She denies bowel bladder dysfunction. She does have history of IV drug use with endocarditis. She states she will need 3 valves replaced. She is a smoker. Prior similar symptoms: Yes Recent Illness/Hospitalization: No PFSH PFSH Medical History Spontaneous pneumothorax MRSA (methicillin resistant Staphylococcus aureus) infection Cortez's palsy GERD (gastroesophageal reflux disease) Neuropathy Irritable bowel syndrome Hepatitis C Frequent headaches Meningococcal meningitis with acute meningococcal septicemia History of blood clots Seasonal allergies Low back pain Home Medications ?Medication ?Instructions ?Recorded ?Last Taken ?Type sulfamethoxazole 800 1 tab PO BID #20 tabs 01/03/23 Unknown Rx mg-trimethoprim 160 mg tablet (Bactrim DS) Allergy/AdvReac Type Severity Reaction Status Date / Time clindamycin Allergy Hives Verified 10/20/24 09:08 methadone Allergy Swelling Verified 10/20/24 09:08 nitrofurantoin (From Allergy Hives Verified 10/20/24 09:08 Macrobid) Family History Other Alcoholism Asthma CVA (cerebral vascular accident) Cancer Depression Diabetes Heart disease High cholesterol Hypertension Myocardial infarction Surgical History H/O knee surgery History of skin graft History of bone graft S/P lobectomy of lung Social History (Updated 10/20/24 @ 09:[address] Shaka Diaz MD) household members: children Smoking Status: Current every day smoker tobacco type: cigarettes ROS ROS ED Constitutional Constitutional ED: Denies chills, fever(s), subjective, sweats or weight loss Eyes Eyes: Denies blurry vision or change in vision ENT ENT ED: Denies rhinorrhea or sore throat Cardiovascular Cardiovascular: Denies chest pain, palpitations or racing heartbeat Respiratory/Chest Respiratory/Chest: Denies cough, dyspnea or dyspnea on exertion Gastrointestinal Gastrointestinal: Denies abdominal pain, nausea or vomiting Musculoskeletal Musculoskeletal: Denies arthralgias Integumentary Denies rash Neurologic Neurologic: Reports paresthesias LLE; Denies weakness Endocrine Endocrinology: Denies cold intolerance or heat intolerance Hematologic/Lymphatic Hematologic/Lymphatic: Reports systems reviewed and no addt'l complaints, except as documented EXAM Physical Exam Const Vital Signs: 10/20/24 09:07 10/20/24 10:05 10/20/24 10:07 Temperature 97.5 F L 97.7 F L Temperature Source Oral Oral Pulse Rate 92 73 Respiratory Rate 18 16 Respiratory Effort Normal Respiratory Pattern Normal Blood Pressure 109/87 H 93/67 Blood Pressure Mean 94 75 Pulse Ox 99 94 Oxygen Delivery Method Room Air Room Air 10/20/24 11:00 Temperature 98.2 F Temperature Source Oral Pulse Rate 65 Respiratory Rate 14 Respiratory Effort Respiratory Pattern Blood Pressure 99/69 Blood Pressure Mean 79 Pulse Ox 96 Oxygen Delivery Method Room Air Positive well nourished and well developed General Appearance ED: well developed and NAD HEENT Reports moist mucous membranes HEENT Narrative: Head is atraumatic normocephalic. Ears normal. Nares patent. Eyes PERRL and EOMs intact bilaterally Eyes Narrative: No conjunctival petechiae. No subconjunctival hemorrhage. General Eye ED: Negative for pale conjunctiva or scleral icterus Neck no lymphadenopathy, supple and no JVD Chest Wall inspection of chest normal and palpation of chest normal Resp normal respiratory effort and clear to auscultation bilaterally Cardio regular rate and regular rhythm; Negative for no murmurs GI normal to inspection, nondistended, normoactive bowel sounds, non-tender and no masses; Negative for hepatosplenomegaly Extremity Extremity Narrative: Stigmata of peripheral vascular disease. Patient has a dressing on her the anterior right leg that was not removed. She does not have a palpable PT or DP pulse. She does have biphasic PT pulse bilaterally biphasic DP pulse on the right and monophasic flow on the left. Patient has pallor with elevation of the left foot and rubor with dependency. Initially her foot was cool. She does have symptoms that are suggestive of Raynaud's phenomenon. No one has told her that. Neuro oriented x3, CN's II-XII intact bilaterally and No no sensory deficits noted Neuro Narrative: Sensation of the left foot is different than the right foot. It is also cooler. Sensorium / Orientation: alert Psych Mood & Affect: anxious Skin Skin Narrative: Prior well-healed wounds and stigmata of purpura vascular disease with shiny skin, absent of hair on her toes. Thickening of her toenails. MDM MDM MDM Narrative Medical decision making narrative: Patient's major concern is swelling. I am not concerned with swelling Concern regarding her vascular/arterial flow to her left lower extremity more so than her right. Spoke with Trista Corley's nurse practitioner. She recommended CT of the abdomen with runoffs. They will see her as an outpatient if she is stable to go home. Appropriate blood work was obtained. Patient is somewhat anxious and tremulous. She was treated with 0.5 mg of Ativan IV in the event that there is something that would require intervention and sooner than later. History & Record Review Additional record(s) reviewed:: Prior inpatient record (Reviewed hospitalization 2021 to ICU because of sepsis with osteomyelitis, endocarditis due to IV drug use.) and Prior labs Lab Data Attestation: I reviewed the patient's lab results. Lab results narrative: CBC is unremarkable. MCV is slightly decreased. Competence of metabolic panel is unremarkable. Labs: Laboratory Results - last 24 hr 10/20/24 09:56 WBC 5.6 RBC 5.08 Hgb 13.4 Hct 40.8 MCV 80.3 L MCH 26.4 L MCHC 32.8 RDW Std Deviation 39.2 RDW Coeff of Golden 13.4 Plt Count 290 MPV 10.4 Immature Gran % (Auto) 0.400 Neut % (Auto) 50.2 Lymph % (Auto) 37.9 [place] % (Auto) 8.1 Eos % (Auto) 2.7 Baso % (Auto) 0.7 Absolute Neuts (auto) 2.8 Absolute Lymphs (auto) 2.11 Nucleated RBC % 0 Sodium 139 Potassium 4.2 Chloride 102 Carbon Dioxide 24.5 Anion Gap 12 BUN 12 Creatinine 0.87 Estim Creat Clear Calc 80.64 Est GFR (MDRD) Non-Af 83 BUN/Creatinine Ratio 14.3 Glucose 111 H Calcium 9.8 Total Bilirubin 0.21 AST 16 ALT < 5 Alkaline Phosphatase 76 Total Protein 7.5 Albumin 3.9 Globulin 3.5 Albumin/Globulin Ratio 1.1 Radiography Diagnostic Testing: Clinical Impression(s) from Imaging Studies Abdomen/Pelvis CTA 10/20/24 10:20 IMPRESSION: One-vessel runoff in the left lower extremity namely the peroneal artery. The remainder of the examination is unremarkable. Reading Location: [id number] Since there is no visualization of the posterior tibial or dorsalis pedis pedal and faint visibility of the peroneal patient was reassessed. Patient has a cold foot. She complains of altered sensation. Heparin bolus and drip was started. Hospitalist been paged. They will be notified that I did speak with Dr. Corley's nurse practitioner. There is also narrowing at the trunk of the tibioperoneal. EKG Initial EKG: Attestation: I personally reviewed and interpreted this EKG as follows: Interpretation: Sinus Rhythm (Sinus rhythm rate of 77. EKG is normal. Will need to compare to prior the ST segment has no laxity or concavity. It is straight. RI interval is 152 ms. QS duration 88 ms. QT duration 108 ms. [place] is normal.) Management Discussion w/another healthcare provider: Hospitalist (Spoke with Dr. Santo. Full admit PCU.) and Complaint Investigations Officer (Spoke with Trista Dr. Corley's nurse practitioner.) Critical Care Time Critical Care Time: Yes Critical care time (excluding procedures): 30-74 minutes (31), Including time spent: (History, physical, documentation, review of prior records, independent rotation of laboratory results), Discussing w/Patient &/or Family/Food Mixer Assembler, Discussing w/Consultants, Arranging Admission or Transfer and Performing Direct Patient Care at Bedside Discharge Plan Dx/Rx/DC Orders Clinical Impression: Ischemic pain of left foot, Transient hypotension, History of valvular heart disease Disposition Disposition: Acute Care Hospital [facility]
[2024-10-20] MEDS: Lorazepam 2 MG/ML WCH Syringe 0.5 MG IV ×2 (09:59→15:40)
[2024-10-20 10:04] LABS: Absolute Lymphocyte Count 2.11 X10^3/uL (0.83-4.51); Absolute Neutrophil Count 2.8 X10^3/uL (2.0-7.7); Basophil# 0.04 X10^3/uL; Basophil% 0.7 % (0-1); Eosinophil# 0.15 X10^3/uL; Eosinophils% 2.7 % (0-5); Hematocrit 40.8 % (37-47); Hemoglobin 13.4 g/dL (12.0-15.0); Lymphocyte # 2.11 X10^3/ul (0.83-4.51); Lymphocyte % 37.9 % (19-41); Mean Corp Hgb Conc 32.8 g/dL (32-36); Mean Corpuscular Hgb 26.4 pg (27.0-32.0); Mean Corpuscular Volume 80.3 fL (81-99); Mean Platelet Vol. 10.4 fl (6.2-12.0); Monocyte# 0.45 X10^3/uL; Monocyte% 8.1 % (0-10); NRBC Flagged by Analyzer 0 % (0-5); Neutrophil # 2.79 X10^3/uL (2.7-7.7); Neutrophil % 50.2 % (47-70); Platelet Count 290 K/mm3 (150-450); RBC Distribution Width CV 13.4 % (11.6-14.6); RBC Distribution Width SD 39.2 fl (35.1-43.9); Red Blood Count 5.08 M/mm3 (4.2-5.4); White Blood Count 5.6 K/mm3 (4.4-11.0)
--- NOTE | 2024-10-20 10:20 | CT_ITS ---
PROCEDURE: CTA ABD W/RUNOFF W/WO CONTRAST 10/20/2024 REASON FOR EXAM: ISCHEMIC LEFT LOWER EXTREMITY TECHNIQUE: CTA imaging of the abdomen, pelvis, and lower extremities with intravenous contrast. Coronal and Sagittal reconstruction series were provided. 3D, 3D post processing, 3D reconstructions, Maximum intensity projection (MIPs) Volume rendering and Shaded surface rendering was provided. One or more dose reduction techniques were used (e.g., Automated exposure control, adjustment of the mA and/or kV according to patient size, use of iterative reconstruction technique). CONTRAST: Isovue 370 VOLUME: 78mL RADIATION DOSE SUMMARY: CTDlvol: 9.5 mGy DLP: 1562.82 mGycm COMPARISON: None FINDINGS: Aorta: Unremarkable Celiac: Unremarkable SMA: Unremarkable DORA : Unremarkable Right Renal: Unremarkable Left Renal: Unremarkable RIGHT Iliac Arteries: Common Iliac: Unremarkable External Iliac: Unremarkable Internal Iliac: Unremarkable LEFT Iliac Arteries: Common Iliac: Unremarkable External Iliac: Unremarkable Internal Iliac: Unremarkable RIGHT Lower Extremity: Common Femoral: Unremarkable Superficial Femoral: Unremarkable Deep Femoral: Unremarkable Popliteal: Unremarkable Anterior Tibial: Unremarkable Tibioperoneal Trunk: Unremarkable Posterior Tibial: Unremarkable Peroneal: Unremarkable Dorsalis Pedis: Not opacified. LEFT Lower Extremity: Common Femoral: Unremarkable Superficial Femoral: Unremarkable Deep Femoral: Unremarkable Popliteal: Unremarkable Anterior Tibial: Unremarkable Tibioperoneal Trunk: Narrowing. Posterior Tibial: Nonvisualized. Peroneal: Faintly visualized Dorsalis Pedis: Not visualized. Other Findings: Deformity of the right tibia with evidence of prior fracture an intramedullary demarcus fixation device. Soft tissue swelling. Aorta: Abdominal aorta is normal in size. No significant atherosclerotic plaque. No evidence of aneurysm or dissection. CT/CTA Abd w/Runoff W/WO Contrast IMPRESSION: One-vessel runoff in the left lower extremity namely the peroneal artery. The remainder of the examination is unremarkable. Reading Location: [facility]
[2024-10-20 10:56] LABS: ALB/GLOB Ratio 1.1 RATIO (0.9-2.4); AST(SGOT) 16 U/L (<=31); Alanine Aminotransfer ALT/SGPT < 5 U/L (<=34); Albumin, Serum 3.9 g/dL (3.5-5.0); Alkaline Phosphatase 76 U/L (35-104); Anion Gap 12 (5-15); BUN 12 mg/dL (4-19); BUN/Creat Ratio 14.3 RATIO (10-20); Calcium,Total 9.8 mg/dL (7.6-11.0); Carbon Dioxide 24.5 mmol/L (21.0-32.0); Chloride 102 mmol/L (98-108); Creatinine, Serum 0.87 mg/dL (0.70-1.20); EST Glomerular Filtration Rate 83 (>60); Estimated Creatinine Clearance 80.64 ml/min (50-250); Globulin 3.5 g/dL (2.2-4.2); Glucose 111 mg/dL (70-99); Potassium 4.2 mmol/L (3.3-5.1); Protein, Total 7.5 g/dL (5.9-8.4); Sodium Level 139 mmol/L (133-145); Total Bilirubin 0.21 mg/dL (0.00-1.30)
--- NOTE | 2024-10-20 12:49 | HP.PCM.HOS_ITS ---
HPI - General General Date of Admission: 10/20/24 Date of Service: 10/20/24 Chief Complaint: Left foot coolness with pain HPI Narrative XIOMARA HILTON, is a 48 F who presented to [facility] ED on 10/20/2024 with left foot coolness and pain. Patient has history notable for endocarditis with prolonged ICU stay back in 2021. She is a current fentanyl user, snorts on a regular basis, last use yesterday. Denies any recent IV drug use. Patient states that this morning her left foot has felt cool and she has had a tingling pain from the knee down into the foot. She has never had this sensation before. She does state that the left calf becomes painful with walking and improves with rest. She is a current smoker. In the ED it was noted that her left foot appeared cool concerning for possible ischemic foot. She did not have a palpable PT or DP pulse. She was hemodynamically stable on room air. CBC and BMP were fairly benign. Case was discussed with vascular surgery who recommended CTA with runoff. CTA showed narrowing at the tibioperoneal trunk with posterior tibial and dorsalis pedis not visualized and peroneal only faintly visualized. Given this finding, patient was started on a heparin drip and hospitalist was contacted for admission. I saw the patient at bedside in the ED. Patient was anxious appearing and did have moderate pain with palpation of the left foot and lower leg. She had been given a dose of IV Ativan for anxiety prior to my encounter with her and she stated this was somewhat helpful for her. She does think that she may be going through opiate withdrawal as well. She denies any fevers or chills. Denied any back pain or radiculopathy. No other acute concerns at this time. [facility] History Spontaneous pneumothorax MRSA (methicillin resistant Staphylococcus aureus) infection Cortez's palsy GERD (gastroesophageal reflux disease) Neuropathy Irritable bowel syndrome Hepatitis C Frequent headaches Meningococcal meningitis with acute meningococcal septicemia History of blood clots Seasonal allergies Low back pain Home Medications ?Medication ?Instructions ?Recorded ?Last Taken ?Type clonidine HCl 0.1 mg tablet 0.1 mg PO Q8H PRN vomiting 10/20/24 10/20/24 History hydroxyzine HCl 25 mg tablet 25 mg PO BID PRN anxiety 10/20/24 10/20/24 History naloxone 4 mg/actuation nasal spray 1 spray intranasal DAILY PRN 10/20/24 Unknown History opioid overdose Allergy/AdvReac Type Severity Reaction Status Date / Time clindamycin Allergy Hives Verified 10/20/24 09:08 methadone Allergy Swelling Verified 10/20/24 09:08 nitrofurantoin (From Allergy Hives Verified 10/20/24 09:08 Macrobid) Family History Other Alcoholism Asthma CVA (cerebral vascular accident) Cancer Depression Diabetes Heart disease High cholesterol Hypertension Myocardial infarction Surgical History H/O knee surgery History of skin graft History of bone graft S/P lobectomy of lung Social History (Updated 10/20/24 @ 09:[address] Shaka Diaz MD) household members: children Smoking Status: Current every day smoker tobacco type: cigarettes ROS Constitutional Constitutional: Denies chills, fatigue or fever(s) Eyes Eyes: Denies change in vision Cardiovascular Cardiovascular: Denies chest pain or dyspnea on exertion Respiratory/Chest Respiratory/Chest: Denies cough or shortness of breath at rest Gastrointestinal Gastrointestinal: Denies abdominal pain Musculoskeletal Musculoskeletal: Reports other Details: Left lower leg pain ; Denies arthralgias, back pain or myalgias Neurologic Neurologic: Denies dizziness or headache(s) Vital Signs Vital Signs Vital Signs: 10/20/24 09:07 10/20/24 10:05 10/20/24 10:07 Temperature 97.5 F L 97.7 F L Temperature Source Oral Oral Pulse Rate 92 73 Respiratory Rate 18 16 Respiratory Effort Normal Respiratory Pattern Normal Blood Pressure 109/87 H 93/67 Blood Pressure Mean 94 75 Pulse Ox 99 94 Oxygen Delivery Method Room Air Room Air 10/20/24 11:00 Temperature 98.2 F Temperature Source Oral Pulse Rate 65 Respiratory Rate 14 Respiratory Effort Respiratory Pattern Blood Pressure 99/69 Blood Pressure Mean 79 Pulse Ox 96 Oxygen Delivery Method Room Air Weight Weight: 66.8 kg Body Mass Index (BMI) 22.4 Physical Exam Const alert, oriented x3 and average body habitus Constitutional Narrative: Middle-age female, thin and somewhat unkempt appearing, anxious appearing, in mild distress due to ongoing left foot pain, otherwise answering questions appropriately. General Appearance: cooperative HEENT normocephalic, head/scalp atraumatic, hearing grossly normal bilaterally, nasal mucous membranes and turbinates normal and moist oral mucous membranes Eyes PERRL, EOMs intact bilaterally and conjunctivae normal Neck full ROM Chest inspection of chest normal Resp normal respiratory effort, normal air movement, no use of accessory muscles and clear to auscultation bilaterally Cardio regular rate, regular rhythm, no murmurs and peripheral pulses 2+ throughout GI normal to inspection, nondistended, normoactive bowel sounds, soft to palpation, non-tender and non-distended Back/Spine normal ROM Extremity Extremity Narrative: Left foot cool to the touch with pallor noted. PT and DP pulses not palpable. Right leg with good color and pulses palpable. Skin no rashes or lesions noted Neuro moves all extremities and no focal motor deficits Speech: speech normal Psych mental status grossly normal Mood & Affect: anxious Results Lab / Micro Data 10/20/24 09:56 10/20/24 09:56 Labs: Laboratory Results - last 24 hr 10/20/24 09:56: WBC 5.6, RBC 5.08, Hgb 13.4, Hct 40.8, MCV 80.3 L, MCH 26.4 L, MCHC 32.8, RDW Std Deviation 39.2, RDW Coeff of Golden 13.4, Plt Count 290, MPV 10.4, Immature Gran % (Auto) 0.400, Neut % (Auto) 50.2, Lymph % (Auto) 37.9, Barnes % (Auto) 8.1, Eos % (Auto) 2.7, Baso % (Auto) 0.7, Absolute Neuts (auto) 2.8, Absolute Lymphs (auto) 2.11, Nucleated RBC % 0, Sodium 139, Potassium 4.2, Chloride 102, Carbon Dioxide 24.5, Anion Gap 12, BUN 12, Creatinine 0.87, Estim Creat Clear Calc 80.64, Est GFR (MDRD) Non-Af 83, BUN/Creatinine Ratio 14.3, G lucose 111 H, Calcium 9.8, Total Bilirubin 0.21, AST 16, ALT < 5, Alkaline Phosphatase 76, Total Protein 7.5, Albumin 3.9, Globulin 3.5, Albumin/Globulin Ratio 1.1 Imaging Radiology Impression Abdomen/Pelvis CTA 10/20/24 10:20 IMPRESSION: One-vessel runoff in the left lower extremity namely the peroneal artery. The remainder of the examination is unremarkable. Reading Location: [facility] Assessment & Plan Assessment/Plan (1) Ischemic pain of left foot: PLAN: Plan Patient is a 48-year-old female who presented to [facility] ED on 10/20/2024 with worsening left foot coolness and pain. 1. Ischemic left foot ? Admit under inpatient status to PCU. Vascular surgery consulted. Presented with cool left foot with pain and pulses were nonpalpable. CTA abdomen/pelvis with runoff showed narrowing at the tibioperoneal trunk with posterior tibial and dorsalis pedis not visualized and peroneal only faintly visualized. Continue treatment with heparin drip. Appreciate vascular surgery recommendations. Pain control with scheduled Tylenol, p.o. oxycodone as needed and IV Dilaudid as needed. 2. Opiate abuse with suspected withdrawal ? Case management consulted. Patient snorts about 1 g of fentanyl daily, last use 1 day prior to admission. Experiencing withdrawal symptoms on admission. Notably given pain secondary to ischemic foot, will need to treat with opiates as noted above. Will also order other as needed medications per opiate withdrawal order set. Patient does report trying to establish with outpatient addiction medicine services recently and would be interested on more information on this, appreciate addiction medicine recommendations. 3. Tobacco use ? Smokes about 1 pack of cigarettes per day. Nicotine patch ordered per patient request. 4. History of endocarditis ? History of endocarditis with prolonged hospitalization back in 2021. Patient reports still needing to have valves replaced at this time. No murmur noted on exam and patient hemodynamically stable on room air. Outpatient follow-up. DVT prophylaxis: Not indicated, on heparin drip CODE STATUS: Full code, verified Expected disposition: TBD Total clinical time spent by myself addressing the patient's medical issues, reviewing all the data, and collaborating with patient's care team: 55 minutes. Charges/Coding Visit Charges Inpatient E&M: 50899 Init Hosp L2
[2024-10-20] MEDS: Heparin Injection (Vial) 5,000 UNIT/ML VIAL 4500 UNIT IV (13:11)
[2024-10-20] MEDS: HEPARIN/D5w 25,000 UNITS 25,000 UNITS/250 ML IV.SOLN. 10 UNITS CONT INF (13:12)
[2024-10-20 13:43] LABS: International Normalized Ratio 1.1; Prothrombin Time (Protime)PT. 14.3 SECONDS (11.7-14.9)
[2024-10-20 13:44] LABS: Partial Thromboplast Time 28.4 Seconds (24.1-36.2)
[2024-10-20] MEDS: HYDROmorphone 0.5 MG/0.5 ML SYRINGE IV (14:59)
--- NOTE | 2024-10-20 16:54 | ECHOD_ITS ---
Reason For Study Reason For Study: EMBOLI Procedure This was a 2D Doppler, Color Flow transthoracic echocardiogram. Exam performed portable in patient room. Left Ventricle Normal LV size. Left ventricular systolic function is normal. The left ventricular ejection fraction is 60 %. No regional wall motion abnormalities noted. Right Ventricle Normal RV size. Normal systolic function. Atria Normal left atrium. Normal right atrium. Mitral Valve Normal mitral valve. Tricuspid Valve Normal tricuspid valve. Mild to moderate (1-2+) tricuspid valve insufficiency. Aortic Valve Trisinus/trileaflet aortic valve. Pulmonic Valve Normal pulmonic valve. Great Vessels Normal aortic root. The pulmonary artery is normal size. Inferior vena cava collapse with respiration. Pericardium/Pleural No pericardial effusion. MMode/2D Measurements & Calculations LVIDd: 4.1 cm IVSd: 0.99 cm LAV(MOD- bp): 41.9 ml LVIDs: 3.0 cm LVPWd: 0.81 cm LAV(MOD- bp) Indexed: 23.5 ml/m2 FS: 26.2 % LAV(MOD- sp2): 38.9 ml LAV(MOD- sp4): 38.2 ml SV(MOD- sp4): 40.9 ml LVAd ap4: 22.8 cm2 LVAd ap2: 23.9 cm2 LVLd ap4: 7.0 cm LVLd ap2: 7.4 cm SI(MOD- sp4): 23.0 ml/m2 EDV(MOD-sp4): 61.9 ml EDV(MOD-sp2): 63.4 ml EDV(sp4-el): 62.9 ml EDV(sp2-el): 65.7 ml LVAs ap4: 11.6 cm2 LVAs ap2: 11.9 cm2 LVLs ap4: 5.7 cm LVLs ap2: 5.9 cm ESV(MOD-sp4): 20.9 ml ESV(MOD-sp2): 20.9 ml ESV(sp4-el): 20.0 ml ESV(sp2-el): 20.4 ml EF(MOD-sp4): 66.2 % EF(MOD-sp2): 67.1 % EF(sp4-el): 68.2 % SV(MOD-sp2): 42.5 ml SV(sp4-el): 42.9 ml LA A4 area: 13.9 cm2 SI(MOD-sp2): 23.9 ml/m2 LA dimension(2D): 3.4 cm TAPSE: 2.3 cm Time Measurements MV dec time: 0.19 sec Doppler Measurements & Calculations MV E max vahe: 89.6 cm/sec Lat Peak E' Vahe: 16.3 cm/sec Med Peak E' Vahe: 12.6 cm/sec MV A max vahe: 66.5 cm/sec E/E' lat: 5.5 E/E' med: 7.1 MV E/A: 1.3 MV V2 max: 94.0 cm/sec MV P1/2t max vahe: 93.2 cm/sec MV max P.5 mmHg MV P1/2t: 73.6 msec MV V2 mean: 60.4 cm/sec MV mean P.6 mmHg MV dec slope: 370.9 cm/sec2 MV V2 VTI: 21.4 cm MVA(P1/2t): 3.0 cm2 ECHO/Echo Complete Interpretation Summary Normal LV size. Left ventricular systolic function is normal. The left ventricular ejection fraction is 60 %. Mild to moderate (1-2+) tricuspid valve insufficiency. Ordering Physician: Mike Santo Referring Physician: NO PCP Performed By: Brenda Abdi, MINDI, RVT
[2024-10-20] MEDS: Acetaminophen 500 MG Tablet 1000 MG PO ×2 (17:07→23:51)
--- NOTE | 2024-10-20 17:10 | ART_ITS ---
Reason For Study Reason For Study: BLE Pain Procedure A bilateral lower extremity continuous wave Doppler with analog waveform analysis,segmental pressures,and ankle brachial indexes without exercise. Left Segmental Pressures Left brachial= 112mmHg. Left posterior tibial artery = 123mmHg. Left dorsalis pedis artery = 119mmHg. Left digit = 80 mmHg. The left posterior tibial artery waveforms are triphasic. The left dorsalis pedis waveforms are triphasic. Right Segmental Pressures Right posterior tibial artery = 131mmHg. Right dorsalis pedis artery = 128mmHg. Right digit = 74 mmHg. The right posterior tibial artery waveforms are triphasic. The right dorsalis pedis waveforms are triphasic. Indices The right ankle brachial index by the posterior tibial artery is 1.17. The right ankle brachial index by the dorsalis pedis is 1.14. The right digital-brachial index is 0.66. The left ankle brachial index by the posterior tibial artery is 1.10. The left ankle brachial index by the dorsalis pedis is 1.06. The left digital-brachial index is 0.71. VL/Lower Ext Art Exam w/o Exercis Interpretation Summary Right JT 1.17, normal. Doppler/PVR waveforms of the right leg normal at rest. TBI diminished with normal digit waveforms throughout, small vessel disease vs spasm. Left JT 1.1, normal. Doppler/PVR waveforms of the left leg normal at rest. TBI diminished with normal digit waveforms throughout, small vessel disease vs spasm. Ordering Physician: Trista Anderson Performed By: Chaka Agarwal RVAi
[2024-10-20] MEDS: hydrOXYzine PAM 25 MG Capsule 50 MG PO ×2 (17:11→23:52)
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
[2024-10-20] MEDS: oxyCODONE 5 MG Tablet PO (17:42)
[2024-10-20] MEDS: Gabapentin 300 MG Capsule PO (18:50)
[2024-10-20 19:31] LABS: Partial Thromboplast Time 86.2 Seconds (24.1-36.2)
[2024-10-20] MEDS: cloNIDine HCl 0.1 MG Tablet PO (23:52)
[2024-10-20] MEDS: MELATONIN 3 MG TABLET PO (23:52)
[2024-10-20] MEDS: traZODone 100 MG Tablet PO (23:52)
[2024-10-21 02:39] LABS: Partial Thromboplast Time 67.3 Seconds (24.1-36.2)
[2024-10-21 02:59] VITALS: PULSE 73
[2024-10-21 05:55] VITALS: BP 115/82; PULSE 78; RESP 20; TEMP 36.6; O2SAT 95
[2024-10-21] MEDS: Acetaminophen 500 MG Tablet 1000 MG PO ×2 (06:11→14:22)
[2024-10-21 08:00] VITALS: O2SAT 94
[2024-10-21 08:12] LABS: Hematocrit 37.6 % (37-47); Hemoglobin 12.2 g/dL (12.0-15.0); Mean Corp Hgb Conc 32.4 g/dL (32-36); Mean Platelet Vol. 9.9 fl (6.2-12.0); Platelet Count 271 K/mm3 (150-450); RBC Distribution Width CV 13.8 % (11.6-14.6); RBC Distribution Width SD 40.3 fl (35.1-43.9); White Blood Count 5.3 K/mm3 (4.4-11.0)
[2024-10-21 08:20] LABS: Partial Thromboplast Time 62.5 Seconds (24.1-36.2)
[2024-10-21 08:30] LABS: Anion Gap 8 (5-15); BUN 8 mg/dL (4-19); BUN/Creat Ratio 10.3 RATIO (10-20); Calcium,Total 8.7 mg/dL (7.6-11.0); Carbon Dioxide 26.6 mmol/L (21.0-32.0); Chloride 108 mmol/L (98-108); Creatinine, Serum 0.81 mg/dL (0.70-1.20); EST Glomerular Filtration Rate 91 (>60); Estimated Creatinine Clearance 86.61 ml/min (50-250); Glucose 93 mg/dL (70-99); Potassium 3.9 mmol/L (3.3-5.1); Sodium Level 143 mmol/L (133-145)
[2024-10-21] MEDS: Gabapentin 300 MG Capsule PO ×2 (08:48→17:18)
--- NOTE | 2024-10-21 09:19 | PCM.PN.HOSP ---
Reason for Visit Reason for Visit: Diagnoses Other disorder of circulatory system (10/20/24) Pain in right foot (10/20/24) Pain in left foot (10/20/24) Subjective Subjective Saw patient at bedside this morning. Patient appeared moderately more comfortable this morning than yesterday. Noted that she continues to have left lower leg and foot pain but it has improved somewhat from yesterday. On exam left foot has better color and feels warm to the touch, and DP pulse is weak but palpable. She denies any new concerns today. Objective Data Objective Data Vital Signs: Vital Signs Temp Pulse Resp BP Pulse Ox O2 Del Method 97.8 F 78 20 H 115/82 H 94 Room Air 10/21/24 05:55 10/21/24 05:55 10/21/24 05:55 10/21/24 05:55 10/21/24 08:00 10/21/24 08:00 Oxygen Delivery Method Room Air Weight: 65.8 kg Body Mass Index (BMI) 22.0 Intake & Output: Intake and Output for Last 24 Hours 10/19/24 10/20/24 10/21/24 23:59 23:59 23:59 Intake Total 271.17 / 271.17 144.75 / 144.75 Output Total 300 / 300 Balance 271.17 / -28.83 -155.25 / -155.25 Lab / Micro Data 10/21/24 08:04 10/21/24 08:04 Labs: Laboratory Results - last 24 hr 10/20/24 09:56: WBC 5.6, RBC 5.08, Hgb 13.4, Hct 40.8, MCV 80.3 L, MCH 26.4 L, MCHC 32.8, RDW Std Deviation 39.2, RDW Coeff of Golden 13.4, Plt Count 290, MPV 10.4, Immature Gran % (Auto) 0.400, Neut % (Auto) 50.2, Lymph % (Auto) 37.9, Cotton % (Auto) 8.1, Eos % (Auto) 2.7, Baso % (Auto) 0.7, Absolute Neuts (auto) 2.8, Absolute Lymphs (auto) 2.11, Nucleated RBC % 0, Sodium 139, Potassium 4.2, Chloride 102, Carbon Dioxide 24.5, Anion Gap 12, BUN 12, Creatinine 0.87, Estim Creat Clear Calc 80.64, Est GFR (MDRD) Non-Af 83, BUN/Creatinine Ratio 14.3, Glucose 111 H, Calcium 9.8, Total Bilirubin 0.21, AST 16, ALT < 5, Alkaline Phosphatase 76, Total Protein 7.5, Albumin 3.9, Globulin 3.5, Albumin/Globulin Ratio 1.1 10/20/24 13:15: PT 14.3, INR 1.1, APTT 28.4 10/20/24 19:10: APTT 86.2 H 10/21/24 02:20: APTT 67.3 H 10/21/24 08:04: WBC 5.3, RBC 4.70, Hgb 12.2, Hct 37.6, MCV 80.0 L, MCH 26.0 L, MCHC 32.4, RDW Std Deviation 40.3, RDW Coeff of Golden 13.8, Plt Count 271, MPV 9.9, APTT 62.5 H, Sodium 143, Potassium 3.9, Chloride 108, Carbon Dioxide 26.6, Anion Gap 8, BUN 8, Creatinine 0.81, Estim Creat Clear Calc 86.61, Est GFR (MDRD) Non-Af 91, BUN/Creatinine Ratio 10.3, Glucose 93, Calcium 8.7 Radiography Diagnostic Testing: Radiology Impression Abdomen/Pelvis CTA 10/20/24 10:20 IMPRESSION: One-vessel runoff in the left lower extremity namely the peroneal artery. The remainder of the examination is unremarkable. Reading Location: [place] [id number] Physical Exam Const alert, oriented x3 and average body habitus Constitutional Narrative: Middle-age female, thin and somewhat unkempt appearing, appears more calm and comfortable today, sitting back comfortably in bed, answering questions appropriately and in no acute distress. General Appearance: cooperative HEENT normocephalic, head/scalp atraumatic, hearing grossly normal bilaterally, nasal mucous membranes and turbinates normal and moist oral mucous membranes Eyes PERRL, EOMs intact bilaterally and conjunctivae normal Neck full ROM Chest inspection of chest normal Resp normal respiratory effort, normal air movement, no use of accessory muscles and clear to auscultation bilaterally Cardio regular rate, regular rhythm, no murmurs and peripheral pulses 2+ throughout GI normal to inspection, nondistended, normoactive bowel sounds, soft to palpation, non-tender and non-distended Back/Spine normal ROM Extremity Extremity Narrative: Left foot now with warmth to the touch and pallor improved. PT pulse weak but palpable. Improving. Skin no rashes or lesions noted Neuro moves all extremities and no focal motor deficits Speech: speech normal Psych mental status grossly normal Assessment & Plan Assessment/Plan (1) Ischemic pain of left foot: PLAN: Plan Patient is a 48-year-old female who presented to [facility] ED on 10/20/2024 with worsening left foot coolness and pain. 1. Ischemic left foot ? Vascular surgery following. Presented with cool left foot with pain and pulses were nonpalpable. CTA abdomen/pelvis with runoff showed narrowing at the tibioperoneal trunk with posterior tibial and dorsalis pedis not visualized and peroneal only faintly visualized. Per vascular surgery, highest concern is for embolization to her pedal arch vessels as she does not have any significant atherosclerotic disease visualized on imaging. ABIs and digit waveforms ordered. Echo ordered. Continue treatment with heparin drip for now. Vascular surgery not planning on operative intervention at this time. Pain control with scheduled Tylenol and Demerol as needed (per patient, oxycodone and Dilaudid are not effective for her). 2. Opiate abuse with suspected withdrawal ? Case management/addiction medicine following. Patient snorts about 1 g of fentanyl daily, last use 1 day prior to admission. Experiencing withdrawal symptoms on admission. Notably given pain secondary to ischemic foot, treating with Tylenol and Demerol as above. Will hold on buprenorphine at this time but continue to treat with other as needed medications per opiate withdrawal order set. Patient does report trying to establish with outpatient addiction medicine services recently and would be interested on more information on this, appreciate addiction medicine recommendations. 3. Tobacco use ? Smokes about 1 pack of cigarettes per day. Nicotine patch ordered per patient request. 4. History of endocarditis ? History of endocarditis with prolonged hospitalization back in 2021. Patient reports still needing to have valves replaced at this time. No murmur noted on exam and patient hemodynamically stable on room air. Outpatient follow-up. DVT prophylaxis: Not indicated, on heparin drip CODE STATUS: Full code, verified Expected disposition: TBD Total clinical time spent by myself addressing the patient's medical issues, reviewing all the data, and collaborating with patient's care team: 35 minutes. Charges/Coding Visit Charges Inpatient E&M: 90695 Subs Hosp L2
[2024-10-21] MEDS: hydrOXYzine PAM 25 MG Capsule 50 MG PO (11:25)
--- NOTE | 2024-10-21 11:40 | CASEMGMT ---
RN SHAILA Face to Face with patient for initial transition planning/care coordination assessment. RN CM introduced self and role at [facility]. Patient lying in bed, alert and oriented. Patient willing to participate in assessment and is able to answer all questions appropriately. Care providers, pharmacy, and demographics verified. Strata: 2 PCP: None, CM to provided PCP list Specialists: courtney Fields [facility] Preferred Pharmacy: [facility] Insurance: [employer] Prescription Benefit: yes Living Will/HPOA: none LNOK: parents Living Arrangements: Patient states she will be going to her parents' single story home with 3 steps to enter. Patient states she is independent at home. Transportation: [employer], parents DME/HHC: Patient has shower chair, raised toilet, and crutches at home. No previous HHC or SNF. Patient has been to [facility] in the past. Patient wishes to discharge home, denies need for home health at this time. Patient states she has no further needs or concerns at this time. CM to follow for discharge planning needs that may arise. Disposition Plan: Patient to discharge to home with family support and follow-up plans in place. Cristiana GAY, RN, CM
[2024-10-21 11:55] VITALS: BP 99/82; PULSE 71; RESP 16; TEMP 37.1; O2SAT 93
--- NOTE | 2024-10-21 12:58 | CASEMGMT ---
Addendum entered by Dhruv Morales 10/21/24 17:46: Therapy evals reviewed. OP therapy, as needed, recommended. RAJESH LINTON to room. Pt resting in bed. Discussed how she did w/therapy today and their recommendations. Pt states she is interested in going to OP therapy, stating she has went to [facility] in the past and would be like to go again. Made aware a script can be provided @ discharge. She voices appreciation. She also states she spoke w/her mom re: a walker, stating she though her mom had one, but her mom has given it away. Pt states she would like to get one @ discharge. She chose [employer] as preferred DME co for a WW. Her mom did verify she does have a shower chair. Pt states she plans to f/u w/ the cardio-thoracic surgeon @ [facility] re: valve replacement. She states she was supposed to f/u with them a long time ago but did not do so and she is wanting to move forward with this now. She denies having further discharge needs or concerns at this time. Original Note: RAJESH LINTON note: RAJESH LINTON to room. Pt sitting up in chair. Pt provided w/[facility]SC info and also PCP local directory. Lew GAY RN, CM
[2024-10-21] MEDS: Methocarbamol 750 MG Tablet PO (13:24)
--- NOTE | 2024-10-21 16:54 | CASEMGMT ---
Social Work SW met with pt to discuss drug use and provide needed interventions. Pt states that she became established with [facility] on August 22. Pt had been going appointments weekly and doing well until the last two weeks when she became ill and unable to go to appointments. Pt started using fentanyl again. Pt states she sees a counselor and receives Suboxone treatments at this clinic. Pt states that she talked to [facility] on the phone today and pt will return for treatments once discharged from the hospital. Pt states that her current home situation is not conducive to a clean lifestyle. Pt states that her parents live in [place] but winter in [place]. Pt's mother is flying back to [place] tomorrow and pt will be moving in with her parents. Pt mother is able to assist with transportation and take pt to appointments at [facility] and to medical appointments. Pt states that mother is supportive and willing to help pt in her journey stop drug use. Pt denies need to see Addiction Therapist at this time as she has a discharge plan set to work on [facility]. SW will remain available should needs arise. PACHECO Blackburn
[2024-10-21 17:10] VITALS: BP 111/89; PULSE 73; RESP 16; TEMP 36.4; O2SAT 100
--- NOTE | 2024-10-21 17:37 | PCM.PN.SRG ---
Subjective Subjective I saw patient resting comfortably in bed. She had echo which demonstrated tricuspid insufficiency but otherwise was unremarkable; no vegetations visualized. She had arterial studies which were normal without any evidence of PE; digit waveforms were normal as well suggesting against embolic event. Objective Data Objective Data Vital Signs: Vital Signs Temp Pulse Resp BP Pulse Ox O2 Del Method 98.7 F 71 16 99/82 H 93 Room Air 10/21/24 11:55 10/21/24 11:55 10/21/24 11:55 10/21/24 11:55 10/21/24 11:55 10/21/24 14:00 Oxygen Delivery Method Room Air Weight: 145 lb 1.027 oz Body Mass Index (BMI) 22.0 Intake & Output: Intake and Output for Last 24 Hours 10/19/24 10/20/24 10/21/24 23:59 23:59 23:59 Intake Total 271.17 / 271.17 483.15 / 483.15 Output Total 900 / 900 Balance 271.17 / -28.83 -416.85 / -416.85 Lab / Micro Data 10/21/24 08:04 10/21/24 08:04 Labs: Laboratory Results - last 24 hr 10/20/24 19:10: APTT 86.2 H 10/21/24 02:20: APTT 67.3 H 10/21/24 08:04: WBC 5.3, RBC 4.70, Hgb 12.2, Hct 37.6, MCV 80.0 L, MCH 26.0 L, MCHC 32.4, RDW Std Deviation 40.3, RDW Coeff of Golden 13.8, Plt Count 271, MPV 9.9, APTT 62.5 H, Sodium 143, Potassium 3.9, Chloride 108, Carbon Dioxide 26.6, Anion Gap 8, BUN 8, Creatinine 0.81, Estim Creat Clear Calc 86.61, Est GFR (MDRD) Non-Af 91, BUN/Creatinine Ratio 10.3, Glucose 93, Calcium 8.7 Radiography Diagnostic Testing: Radiology Impression Echocardiogram 10/20/24 16:54 Interpretation Summary Normal LV size. Left ventricular systolic function is normal. The left ventricular ejection fraction is 60 %. Mild to moderate (1-2+) tricuspid valve insufficiency. Ordering Physician: Mike Santo Referring Physician: KAREN PCP Performed By: Brenda Abdi RDCS, HAIT Extremity Arterial Study 10/20/24 17:10 Interpretation Summary Right JT 1.17, normal. Doppler/PVR waveforms of the right leg normal at rest. TBI diminished with normal digit waveforms throughout, small vessel disease vs spasm. Left JT 1.1, normal. Doppler/PVR waveforms of the left leg normal at rest. TBI diminished with normal digit waveforms throughout, small vessel disease vs spasm. Ordering Physician: Trista Anderson Performed By: Chaka Agarwal RVT Physical Exam Const alert and oriented x3 General Appearance: cooperative HEENT head/scalp atraumatic and external nose normal Eyes EOMs intact bilaterally Resp normal respiratory effort Effort and Inspection: able to speak in complete sentences Cardio Rate: regular rate Rhythm: regular rhythm Extremity Extremity Narrative: Bilateral DP pulses are normal to palpation, PT pulses are diminished but multiphasic by doppler Bilateral feet are appropriately warm and pink; do not appreciate any apparent digital cyanosis/pallor/wounds Skin no rashes or lesions noted Neuro Speech: speech normal Psych Mood & Affect: anxious Assessment & Plan Assessment/Plan (1) Foot pain, bilateral: PLAN: Plan Arterial study was reassuring, preserved inflow through the lower extremities and into the digits. OK to discontinue heparin drip. No interventional plans. No significant atherosclerotic disease on CTA to warrant ongoing surveillance or vascular follow-up on an outpatient basis. Charges/Coding Visit Charges Inpatient E&M: 20943 Subs Hosp L1
[2024-10-22] MEDS: Methocarbamol 750 MG Tablet PO ×2 (01:31→09:20)
[2024-10-22 01:43] VITALS: BP 87/68; PULSE 67; RESP 16; TEMP 36.7; O2SAT 96
[2024-10-22 07:30] VITALS: O2SAT 94
[2024-10-22 08:30] VITALS: BP 153/118; PULSE 81; RESP 16; TEMP 36.8; O2SAT 96
[2024-10-22] MEDS: cloNIDine HCl 0.1 MG Tablet PO (09:21)
[2024-10-22] MEDS: Gabapentin 300 MG Capsule PO (09:26)
--- NOTE | 2024-10-22 10:38 | DCINST_ITS ---
Discharge Instructions Diet Discharge Diet: No restrictions DC O2, CPAP, BIPAP needs Home O2 Discharge instructions: No Dressing / Incision Discharge Activity: No Restrictions Follow Up Care Test Results: Test results from this visit will be discussed in further detail at your follow- up appointment, if applicable. Discharge Plan Admission Admit Date/Time: 10/20/24 12:49 Primary Reason for Your Visit: Left foot pain and pallor Attending Provider: Mike Santo Primary Care Provider: Care Physician,No Primary Consulting Providers: Rishabh Corley Instructions Additional Instructions / Restrictions: Take amlodipine 2.5 mg daily for your small vessel disease. Take gabapentin 300 mg 3 times daily for neuropathy. Continue your other home medications as normal. Discharge Orders/Prescriptions Prescriptions: New amlodipine 2.5 mg tablet 2.5 mg PO DAILY 30 Days Qty: 30 2RF gabapentin 300 mg capsule 300 mg PO TID 30 Days Qty: 90 0RF Continued clonidine HCl 0.1 mg tablet 0.1 mg PO Q8H PRN (Reason: vomiting) Patient Comments: PT TAKES 2-3 TIMES A DAY, ROUTINE naloxone 4 mg/actuation spray,non-aerosol 1 spray INTRANASAL DAILY PRN (Reason: opioid overdose) Changed hydroxyzine HCl 25 mg tablet 50 mg PO TID PRN (Reason: anxiety) 7 Days Qty: 21 0RF Patient Comments: PT TAKES 50MG TID Referrals / Follow Up: Care Physician,No Primary [Primary Care Provider] - Disposition Disposition (needs filled in before D/C Order can be placed): Home, Self Care
--- NOTE | 2024-10-22 10:38 | DS.PCM_ITS ---
Providers Date of Admission: 10/20/24 Date of Discharge: 10/22/24 Primary Care Physician: No Primary Care Phys Consultations 10/20/24 15:56 Consult: Vascular Surgery Routine Consulting Provider: Rishabh Corley Reason for Consult: left ischemic foot EMERGENT Consult: No MD Notified: Yes Date Notified: 10/20/24 Time Notified: 16:43 Method of Notification: per Dr. Santo Reason For Visit: LEFT ISCHEMIC FOOT Diagnosis Discharge Diagnosis (1) Foot pain, bilateral: Status: Acute Code(s): M79.671 - Pain in right foot; M79.672 - Pain in left foot Medications at Discharge Home Medications naloxone 4 mg/actuation nasal spray 1 spray intranasal DAILY PRN opioid overdose 10/20/24 amlodipine 2.5 mg tablet 2.5 mg PO DAILY 30 days #30 tabs 10/22/24 clonidine HCl 0.1 mg tablet 0.1 mg PO Q8H PRN vomiting 14 days #42 tabs 10/22/24 gabapentin 300 mg capsule 300 mg PO TID 30 days #90 caps 10/22/24 hydroxyzine HCl 25 mg tablet 50 mg (2 x 25 mg) PO TID PRN anxiety 14 days #42 tabs 10/22/24 Hospital Course Operations None Procedures EKG, Transthoracic echo and - (Vascular studies, CTA abdomen/pelvis with runoff) Summary of Care Provided Minutes Spent on Discharge: 35 Hospital Course: Patient is a 48-year-old female who presented to [facility] ED on 10/20/2024 with worsening left foot coolness and pain. Hospital course as noted below. Patient discharged home in stable condition on 10/22. 1. Concern for ischemic left foot ? Vascular surgery followed. Presented with cool left foot with pain and pulses were nonpalpable. CTA abdomen/pelvis with runoff showed narrowing at the tibioperoneal trunk with posterior tibial and dorsalis pedis not visualized and peroneal only faintly visualized. Highest concern initially was for embolization as CTA did not show any significant atherosclerotic disease. However, echo was unremarkable and ABIs and Doppler/PVR waveforms were normal. TBI was diminished throughout consistent with small vessel disease versus spasm. Suspect patient may have some degree of Raynaud's disease. Initially on heparin drip, discontinued on 10/21. Will start amlodipine 2.5 mg daily on discharge. Patient also with history of neuropathy and this may be contributing as well, will start gabapentin 300 mg 3 times daily on discharge as well. 2. Opiate abuse with suspected withdrawal ? Case management/addiction medicine followed. Patient snorts about 1 g of fentanyl daily, last use 1 day prior to admission. Was experiencing withdrawal symptoms on admission. Notably given pain secondary to foot issue as above, treated with Tylenol and Demerol while inpatient. Held on buprenorphine at this time but treated with other as needed medications per opiate withdrawal order set with good symptom control. Patient okay to follow-up with outpatient addiction medicine services on discharge. 3. Tobacco use ? Smokes about 1 pack of cigarettes per day. Nicotine patch in place while inpatient. Discussed cessation on discharge. 4. History of endocarditis ? History of endocarditis with prolonged hospitalization back in 2021. Patient reports still needing to have valves replaced at this time. No murmur noted on exam and patient hemodynamically stable on room air. Outpatient follow-up. Total clinical time spent by myself addressing the patient's medical issues, reviewing all the data, and collaborating with patient's care team: 35 minutes. Physical Exam Const alert, oriented x3 and average body habitus Constitutional Narrative: Middle-age female, thin and somewhat unkempt appearing, much more calm and comfortable than on admission, sitting back comfortably in bed, answering questions appropriately and in no acute distress. General Appearance: cooperative HEENT normocephalic, head/scalp atraumatic, hearing grossly normal bilaterally, nasal mucous membranes and turbinates normal and moist oral mucous membranes Eyes PERRL, EOMs intact bilaterally and conjunctivae normal Neck full ROM Chest inspection of chest normal Resp normal respiratory effort, normal air movement, no use of accessory muscles and clear to auscultation bilaterally Cardio regular rate, regular rhythm, no murmurs and peripheral pulses 2+ throughout GI normal to inspection, nondistended, normoactive bowel sounds, soft to palpation, non-tender and non-distended Back/Spine normal ROM Extremity Extremity Narrative: Left foot warm to the touch with pallor resolved and palpable pulses. Significantly improved from admission. Skin no rashes or lesions noted Neuro moves all extremities and no focal motor deficits Speech: speech normal Psych mental status grossly normal Weight / BMI Weight Weight: 65.8 kg Body Mass Index (BMI) 22.0 ABG / Lab / Microbiology Data 10/21/24 08:04 10/21/24 08:04 Radiography Diagnostic Testing: Radiology Impression Extremity Arterial Study 10/20/24 17:10 Interpretation Summary Right JT 1.17, normal. Doppler/PVR waveforms of the right leg normal at rest. TBI diminished with normal digit waveforms throughout, small vessel disease vs spasm. Left JT 1.1, normal. Doppler/PVR waveforms of the left leg normal at rest. TBI diminished with normal digit waveforms throughout, small vessel disease vs spasm. Ordering Physician: Trista Anderson Performed By: Chaka Agarwal Ai D/C Instructions DC O2, CPAP, BIPAP Needs Home O2 Discharge instructions: No Meaningful Use Info Meaningful Use Meaningful Use Diagnoses (Choose all that apply): None applicable Ischemic Stroke Statin Dosing Therapy Reference: STATIN DOSE THERAPY REFERENCE: * Patients > 75 years receive moderate or high dose statin therapy. * Patients 75 years or YOUNGER should receive HIGH intensity statin dose unless contraindicated. You will be required to document reason for non-treatment if statin daily dose does not meet guidelines. HIGH DOSE STATIN THERAPY DAILY Atorvastatin > than or = to 40 mg Rosuvastatin > than or = to 20 mg Amlodipine + Atorvastatin > than or = to 2.5/40 mg Ezetimibe + Simvastatin 10/80 mg Simvastatin 80mg Discharge Plan Admission Admit Date/Time: 10/20/24 12:49 Primary Reason for Your Visit: Left foot pain and pallor Attending Provider: Mike Santo Primary Care Provider: Care Physician,No Primary Consulting Providers: Rishabh Corley Instructions Additional Instructions / Restrictions: Take amlodipine 2.5 mg daily for your small vessel disease. Take gabapentin 300 mg 3 times daily for neuropathy. Continue your other home medications as normal. Discharge Orders/Prescriptions Prescriptions: New amlodipine 2.5 mg tablet 2.5 mg PO DAILY 30 Days Qty: 30 2RF gabapentin 300 mg capsule 300 mg PO TID 30 Days Qty: 90 0RF Continued naloxone 4 mg/actuation spray,non-aerosol 1 spray INTRANASAL DAILY PRN (Reason: opioid overdose) clonidine HCl 0.1 mg tablet 0.1 mg PO Q8H PRN (Reason: vomiting) 14 Days Qty: 42 0RF Changed hydroxyzine HCl 25 mg tablet 50 mg PO TID PRN (Reason: anxiety) 14 Days Qty: 42 0RF Referrals / Follow Up: Care Physician,No Primary [Primary Care Provider] - Disposition Disposition (needs filled in before D/C Order can be placed): Home, Self Care Charges/Coding Visit Charges Inpatient E&M: 43490 Disch Hosp >30min
--- NOTE | 2024-10-22 10:46 | CASEMGMT ---
Addendum entered by Dhruv Morales 10/22/24 11:24: Message received back from Dr Santo stating he will send short scirpt of these to the pharmacy. Pt made aware. Original Note: RAJESH LINTON NOTE: Scripts obtained from Dr Santo for FWW and OP PT. Script for FWW sent to [facility] via [employer] and notified FWW to be delivered to pt's room today. Script for OP PT received. RAJESH LINTON to room. She would like to go to [facility] for OP therapy and would like appt scheduled for her. She prefers afternoon appt. Call placed to [facility]. Appt scheduled for 10/29 @ 2 PM. (They did have an appt Tues 10/26 @ 8 AM, but pt chose the 10/29 appt). Pt made aware of appt date/time and this was placed on her discharge instructions. Pt states is almost out of clonidine and vistaril, stating d/t not going to [facility] for about 2 weeks and she is inquiring about getting Rx for these. She states she discussed this w/Dr Santo this morning and thought he was going to be ordering this. Message sent to Dr Santo re: these meds. Awaiting response. Lew GAY RN, CM
[2024-10-22] MEDS: Polyethylene Glycol 3350 17 GM PACKET PO (11:51)
[2024-10-22 13:00] VITALS: BP 140/89; PULSE 73; RESP 16; TEMP 36.8; O2SAT 99
== END 2024-10-22 15:43 | disposition home or self-care (01) | DRG 351 ==
LOC: ED 15:07 → PCU 15:30
PROVIDERS: Family Medicine; Admitting Provider Hospitalist; Emergency Provider Emergency Medicine; Visit Provider Hospitalist
DX: M62.262 Nontraumatic ischemic infarction of muscle, left lower leg (principal); F11.23 Opioid dependence with withdrawal; I73.9 Peripheral vascular disease, unspecified; I07.1 Rheumatic tricuspid insufficiency; M79.672 Pain in left foot; M79.671 Pain in right foot; F17.210 Nicotine dependence, cigarettes, uncomplicated; M54.50 Low back pain, unspecified; K21.9 Gastro-esophageal reflux disease without esophagitis; G89.29 Other chronic pain; Z82.49 Family history of ischemic heart disease and other diseases of the circulatory system; Z79.899 Other long term (current) drug therapy; Z86.19 Personal history of other infectious and parasitic diseases; Z86.718 Personal history of other venous thrombosis and embolism; Z94.5 Skin transplant status; Z96.7 Presence of other bone and tendon implants
CPT/HCPCS: 36415; 75635; 80048; 80053; 85025; 85027; 85610; 85730; 93005; 93306; 93923; 94668; 97110; 97162; 99284; Q9967; A4216

== ENCOUNTER → 2024-11-12 | Outpatient (CLI) | payer MEDICAID, SELFPAY ==
[2024-11-12 16:59] LABS: Absolute Lymphocyte Count 1.13 X10^3/uL (0.83-4.51); Absolute Neutrophil Count 3.9 X10^3/uL (2.0-7.7); Basophil# 0.04 X10^3/uL; Basophil% 0.7 % (0-1); Eosinophil# 0.03 X10^3/uL; Eosinophils% 0.5 % (0-5); Hematocrit 39.3 % (37-47); Hemoglobin 13.3 g/dL (12.0-15.0); Lymphocyte # 1.13 X10^3/ul (0.83-4.51); Lymphocyte % 20.2 % (19-41); Mean Corp Hgb Conc 33.8 g/dL (32-36); Mean Corpuscular Hgb 26.3 pg (27.0-32.0); Mean Corpuscular Volume 77.7 fL (81-99); Mean Platelet Vol. 10.9 fl (6.2-12.0); Monocyte# 0.43 X10^3/uL; Monocyte% 7.7 % (0-10); NRBC Flagged by Analyzer 0 % (0-5); Neutrophil # 3.92 X10^3/uL (2.7-7.7); POSITIVE COUNT YES; Platelet Count 173 K/mm3 (150-450); RBC Distribution Width CV 14.2 % (11.6-14.6); RBC Distribution Width SD 39.8 fl (35.1-43.9); Red Blood Count 5.06 M/mm3 (4.2-5.4); White Blood Count 5.6 K/mm3 (4.4-11.0)
[2024-11-12 17:17] LABS: Anion Gap 12 (5-15); BUN 18 mg/dL (4-19); BUN/Creat Ratio 16.2 RATIO (10-20); Calcium,Total 9.7 mg/dL (7.6-11.0); Carbon Dioxide 22.9 mmol/L (21.0-32.0); Chloride 102 mmol/L (98-108); EST Glomerular Filtration Rate 62 (>60); Glucose 140 mg/dL (70-99); Potassium 4.5 mmol/L (3.3-5.1); Sodium Level 137 mmol/L (133-145)
[2024-11-12 18:16] LABS: Platelet Estimate ADEQUATE (ADEQ)
== END | disposition home or self-care (01) ==
DX: S81.801D Unspecified open wound, right lower leg, subsequent encounter (principal)
CPT/HCPCS: 36415; 80048; 85025

== ENCOUNTER 2025-02-02 11:27 | Emergency (ER) | payer MEDICAID, SELFPAY ==
[2025-02-02 11:29] VITALS: BP 144/91; PULSE 89; RESP 18; TEMP 36.8; O2SAT 98; BMI 20.8
--- NOTE | 2025-02-02 12:08 | EX.ED.DYSGE1 ---
HPI History of Present Illness Chief Complaint: Med Refill Narrative Narrative: Presents the ED today for medical refills. Patient had a first visit to the primary care doctor at [facility] today she was 11 minutes late they would not see her. Hypertension, anxiety, neuropathy due to right leg injury age of 18 with grafting. She states she had a subsequent infection from a spider bite and is followed by [facility]. She supposed have a recapped on this past Friday however due to concerns for medical clearance she was referred back through pulmonology and cardiology. She seen too many physicians and try to get established PCP. She still has a few of her medications left for 1 or 2 days however was told to come the ED for refills of medications after facility not seeing her due to being late. [facility] Medical History Spontaneous pneumothorax MRSA (methicillin resistant Staphylococcus aureus) infection Cortez's palsy GERD (gastroesophageal reflux disease) Neuropathy Irritable bowel syndrome Hepatitis C Frequent headaches Meningococcal meningitis with acute meningococcal septicemia History of blood clots Seasonal allergies Low back pain Home Medications ?Medication ?Instructions ?Recorded ?Last Taken ?Type naloxone 4 mg/actuation nasal spray 1 spray intranasal DAILY PRN 10/20/24 Unknown History opioid overdose clonidine HCl 0.1 mg tablet 0.1 mg PO Q8H PRN vomiting 14 days 10/22/24 Unknown Rx #42 tabs gabapentin 300 mg capsule 300 mg PO TID 30 days #90 caps 10/22/24 Unknown Rx hydroxyzine HCl 25 mg tablet 50 mg (2 x 25 mg) PO TID PRN 10/22/24 Unknown Rx anxiety 14 days #42 tabs buprenorphine 8 mg-naloxone 2 mg 2 tab sublingual QDAY 01/05/25 Unknown History sublingual tablet ondansetron 4 mg disintegrating 4 mg PO Q8H PRN 01/05/25 Unknown History tablet sertraline 25 mg tablet 25 mg PO QDAY 01/05/25 Unknown History amlodipine 2.5 mg tablet 2.5 mg PO DAILY #30 tabs 02/02/25 Unknown Rx clonidine HCl 0.1 mg tablet 0.1 mg PO Q8H PRN anxiety #42 tabs 02/02/25 Unknown Rx gabapentin 300 mg capsule 300 mg PO TID #90 caps 02/02/25 Unknown Rx hydroxyzine HCl 50 mg tablet 50 mg PO TID PRN anxiett #42 tabs 02/02/25 Unknown Rx ondansetron 4 mg disintegrating 4 mg PO Q8H PRN PRN Nausea #20 tabs 02/02/25 Unknown Rx tablet sertraline 25 mg tablet (Zoloft) 25 mg PO DAILY #30 tabs 02/02/25 Unknown Rx Allergy/AdvReac Type Severity Reaction Status Date / Time clindamycin Allergy Hives Verified 02/02/25 11:33 methadone Allergy Swelling Verified 02/02/25 11:33 nitrofurantoin (From Allergy Hives Verified 02/02/25 11:33 Macrobid) Family History Other Alcoholism Asthma CVA (cerebral vascular accident) Cancer Depression Diabetes Heart disease High cholesterol Hypertension Myocardial infarction Surgical History H/O knee surgery History of skin graft History of bone graft S/P lobectomy of lung Social History household members: children Smoking Status: Current every day smoker tobacco type: cigarettes ROS ROS ED Constitutional Constitutional ED: Denies fever(s) Cardiovascular Cardiovascular: Denies chest pain Respiratory/Chest Respiratory/Chest: Denies cough Gastrointestinal Gastrointestinal: Denies diarrhea or vomiting Musculoskeletal Musculoskeletal: Denies none Integumentary Denies rash or wounds Neurologic Neurologic: Denies weakness EXAM Physical Exam Const Vital Signs: 02/02/25 11:29 02/02/25 11:43 02/02/25 12:14 Temperature 98.2 F 98.2 F Temperature Source Oral Pulse Rate 89 89 Respiratory Rate 18 18 Respiratory Effort Normal Respiratory Pattern Normal Blood Pressure 144/91 H 144/91 H Blood Pressure Mean 108 108 Pulse Ox 98 98 Oxygen Delivery Method Room Air Positive well nourished and well developed General Appearance ED: well developed HEENT normocephalic and atraumatic Eyes General Eye ED: Yes normal appearance of both eyes Neck full ROM Resp normal respiratory effort and normal air movement Cardio regular rate and regular rhythm GI soft to palpation Extremity normal to inspection and full ROM Neuro oriented x3 Skin Skin Narrative: Dressing to right lower leg clean, dry, intact. MDM MDM MDM Narrative Medical decision making narrative: Interventions / MDM: Differential diagnosis: Medication refill, history of hypertension, history of anxiety, neuropathy pain with history of skin graft. Diagnosis considered but do not suspect: N/A My EKG interpretation: N/A Imaging independently reviewed and interpreted by myself: N/A External documents reviewed: N/A Test considered but not ordered:N/A ED course: Vital stable nontoxic no complaints. Reviewed her medications with her from her discharge in October. This was refilled for a month. Discussed with patient to call the primary care office today to make an appointment to be seen again for continued refill for future medications. All questions were answered. Re-evaluation: stable Disposition discussed with patient/family/significant other: Patient Case discussed with consulting clinician: N/A This note was generated with [employer] dictation software. It may contain incorrect words, spelling, and punctuation that were not noted in checking the note before signing. Discharge Plan Triage Chief Complaint: Med Refill ED Provider: Akash Worthington/Rx/DC Orders Clinical Impression: Medication refill, Neuropathy, History of anxiety, History of hypertension Instructions: Med Refill Prescriptions: New amlodipine 2.5 mg tablet 2.5 mg PO DAILY Qty: 30 0RF clonidine HCl 0.1 mg tablet 0.1 mg PO Q8H PRN (Reason: anxiety) Qty: 42 0RF gabapentin 300 mg capsule 300 mg PO TID Qty: 90 0RF hydroxyzine HCl 50 mg tablet 50 mg PO TID PRN (Reason: anxiett) Qty: 42 0RF sertraline [Zoloft] 25 mg tablet 25 mg PO DAILY Qty: 30 0RF ondansetron 4 mg tablet,disintegrating 4 mg PO Q8H PRN PRN (Reason: Nausea) Qty: 20 0RF No Action ondansetron 4 mg tablet,disintegrating 4 mg PO Q8H PRN sertraline 25 mg tablet 25 mg PO QDAY buprenorphine-naloxone 8-2 mg tablet, sublingual 2 tab sublingual QDAY naloxone 4 mg/actuation spray,non-aerosol 1 spray INTRANASAL DAILY PRN (Reason: opioid overdose) gabapentin 300 mg capsule 300 mg PO TID 30 Days Qty: 90 0RF clonidine HCl 0.1 mg tablet 0.1 mg PO Q8H PRN (Reason: vomiting) 14 Days Qty: 42 0RF hydroxyzine HCl 25 mg tablet 50 mg PO TID PRN (Reason: anxiety) 14 Days Qty: 42 0RF Primary Care Provider: Dipika Langley Referrals: Dipika Langley, [Primary Care Provider] - 1 Day Activity Restrictions/Additional Instructions: Call the clinic today to make an appointment for follow-up and continued refills. Print Language: Latvian Disposition Disposition: Home, Self Care Discharge Date/Time: 02/02/25 12:14
[2025-02-02 12:14] VITALS: BP 144/91; PULSE 89; RESP 18; TEMP 36.8; O2SAT 98
== END 2025-02-02 12:14 | disposition home or self-care (01) ==
PROVIDERS: Emergency Provider Emergency Medicine; PCP Family Medicine; Visit Provider Emergency Medicine
DX: Z76.0 Encounter for issue of repeat prescription (principal); G62.9 Polyneuropathy, unspecified; F41.9 Anxiety disorder, unspecified; S89.91XS Unspecified injury of right lower leg, sequela; X58.XXXS Exposure to other specified factors, sequela; I10 Essential (primary) hypertension; K21.9 Gastro-esophageal reflux disease without esophagitis; Z79.899 Other long term (current) drug therapy; F17.210 Nicotine dependence, cigarettes, uncomplicated
CPT/HCPCS: 99282

== ENCOUNTER 2025-02-10 13:14 | Emergency (ER) | payer MEDICAID, SELFPAY ==
[2025-02-10 13:15] VITALS: BP 130/98; PULSE 110; RESP 20; TEMP 36.8; O2SAT 98; BMI 20.2
--- NOTE | 2025-02-10 14:29 | RAD_ITS ---
PROCEDURE: TIBIA FIBULA 2 VIEWS 02/10/2025 REASON FOR EXAM: WOUND TECHNIQUE: 2 views of the right tibia and fibula COMPARISON: Prior right tibia/fibula radiographs 11/16/2022. FINDINGS: Bones: Prior ORIF of the right mid tibial fracture. No obvious hardware failure or loosening. No acute osseous fracture. Stable fusion with the adjacent fibula, secondary to prior trauma and/or surgery. Joints: Normal alignment. Mild degenerative changes. Soft tissues: Soft tissues are unremarkable. RAD/Tibia & Fibula 2 Views IMPRESSION: Prior right tibialORIF. No acute findings. Reading Location: [id number]
[2025-02-10 15:03] VITALS: BP 119/81; PULSE 81; RESP 16; O2SAT 99
[2025-02-10] MEDS: Lidocaine 1% (20 ml mdv) 20 ML Vial INFILT (15:03)
--- NOTE | 2025-02-10 15:33 | EX.ED.DYSGE1 ---
HPI History of Present Illness Chief Complaint: Wound Detail of Chief Complaint: Chronic nonhealing wound anterior right leg and abscess L axilla Informant: patient Onset/Context/Timing Onset: Yesterday (With respect to the axillary abscess) and - (2 to 3 years with respect to the chronic wound infection) Context: Sudden Onset Timing: Continuous Quality: Pain Location: Left axilla Current Severity: Mild Maximum Severity: Moderate Worsened by: Movement of her left upper extremity Relieved by: Nothing Associated Symptoms Associated Symptoms: No constitutional symptoms Narrative Narrative: patient is a 49-year-old woman with history of IV drug use, SBE, hepatitis C and a chronic wound anterior right leg. She is seen by a operation specialist at [facility]. She has difficulty getting there. She inquired if there is a wound center she could follow-up here. She also complains of left axilla abscess. She she denies fever, chills night sweats. She denies GI or symptoms. She denies drainage from the right anterior leg wound. She changes the dressing daily. [facility] Medical History Spontaneous pneumothorax MRSA (methicillin resistant Staphylococcus aureus) infection Cortez's palsy GERD (gastroesophageal reflux disease) Neuropathy Irritable bowel syndrome Hepatitis C Frequent headaches Meningococcal meningitis with acute meningococcal septicemia History of blood clots Seasonal allergies Low back pain Home Medications Medication Instructions Recorded Last Taken Type naloxone 4 mg/actuation nasal spray 1 spray intranasal DAILY PRN 10/20/24 Unknown History opioid overdose clonidine HCl 0.1 mg tablet 0.1 mg PO Q8H PRN vomiting 14 days 10/22/24 Unknown Rx #42 tabs gabapentin 300 mg capsule 300 mg PO TID 30 days #90 caps 10/22/24 Unknown Rx hydroxyzine HCl 25 mg tablet 50 mg (2 x 25 mg) PO TID PRN 10/22/24 Unknown Rx anxiety 14 days #42 tabs buprenorphine 8 mg-naloxone 2 mg 2 tab sublingual QDAY 01/05/25 Unknown History sublingual tablet ondansetron 4 mg disintegrating 4 mg PO Q8H PRN 01/05/25 Unknown History tablet sertraline 25 mg tablet 25 mg PO QDAY 01/05/25 Unknown History clonidine HCl 0.1 mg tablet 0.1 mg PO Q8H PRN anxiety #42 tabs 02/02/25 Unknown Rx gabapentin 300 mg capsule 300 mg PO TID #90 caps 02/02/25 Unknown Rx hydroxyzine HCl 50 mg tablet 50 mg PO TID PRN anxiett #42 tabs 02/02/25 Unknown Rx ondansetron 4 mg disintegrating 4 mg PO Q8H PRN PRN Nausea #20 tabs 02/02/25 Unknown Rx tablet sertraline 25 mg tablet (Zoloft) 25 mg PO DAILY #30 tabs 02/02/25 Unknown Rx amlodipine 2.5 mg tablet 2.5 mg PO DAILY Keep on file for 02/03/25 Unknown Rx next fill #90 tabs cephalexin 500 mg capsule 500 mg PO Q6 #28 CAPSULES 02/10/25 Unknown Rx sulfamethoxazole 800 1 tab PO BID #14 TABLETS 02/10/25 Unknown Rx mg-trimethoprim 160 mg tablet Allergy/AdvReac Type Severity Reaction Status Date / Time clindamycin Allergy Hives Verified 02/10/25 13:15 methadone Allergy Swelling Verified 02/10/25 13:15 nitrofurantoin (From Allergy Hives Verified 02/10/25 13:15 Macrobid) Family History Other Alcoholism Asthma CVA (cerebral vascular accident) Cancer Depression Diabetes Heart disease High cholesterol Hypertension Myocardial infarction Surgical History H/O knee surgery History of skin graft History of bone graft S/P lobectomy of lung Social History household members: children Smoking Status: Current every day smoker tobacco type: cigarettes ROS ROS ED Constitutional Constitutional ED: Denies chills, fever(s), subjective, sweats or weight loss Eyes Eyes: Denies blurry vision or change in vision Cardiovascular Cardiovascular: Denies chest pain Respiratory/Chest Respiratory/Chest: Denies cough, dyspnea or dyspnea on exertion Gastrointestinal Gastrointestinal: Denies nausea or vomiting Musculoskeletal Musculoskeletal: Denies arthralgias, myalgias or neck pain Integumentary Reports abscess and rash Endocrine Endocrinology: Denies cold intolerance or heat intolerance Hematologic/Lymphatic Hematologic/Lymphatic: Reports systems reviewed and no addt'l complaints, except as documented EXAM Physical Exam Const Vital Signs: 02/10/25 13:15 02/10/25 15:03 Temperature 98.2 F Temperature Source Oral Pulse Rate 110 H 81 Respiratory Rate 20 H 16 Blood Pressure 130/98 H 119/81 H Blood Pressure Mean 108 93 Pulse Ox 98 99 Oxygen Delivery Method Room Air Room Air Positive well nourished and well developed General Appearance ED: well developed, NAD and pallor HEENT HEENT Narrative: Head is atraumatic and normocephalic. Ears normal. Nares patent. Eyes PERRL and EOMs intact bilaterally General Eye ED: Negative for pale conjunctiva or scleral icterus Neck no lymphadenopathy, supple and no JVD Resp normal respiratory effort and clear to auscultation bilaterally Cardio regular rate, regular rhythm, S1 normal heart sound, S2 normal heart sound and no murmurs GI normal to inspection, nondistended, normoactive bowel sounds, non-tender and non-distended Extremity Negative for normal to inspection Extremity Narrative: Patient has a wound anterior right leg. Patient had prior graft. Apparently she was bit by insect/spider. It came infected. It broke down. She has not been able to have it surgically repaired because of history of SBE. She is not able to get her heart valve replaced until her wound is cleared up. She also complains of abscess left axilla. Neuro oriented x3 and CN's II-XII intact bilaterally Sensorium / Orientation: alert Psych mental status grossly normal Skin No no rashes or lesions noted, No no wounds and skin turgor normal General Skin Exam: elasticity normal and pallor; Negative for jaundice MDM MDM MDM Narrative Medical decision making narrative: With respect to the anterior right chronic wound there is no evidence infection or concern for infection. Patient been instructed to continue to do what she is doing since she is doing a good job. With respect to the axilla abscess this will require drainage. Please see procedure note. Radiography Chest X-Ray - ED: 2 View (2 view x-ray of the tib-fib was obtained per nurse protocol. Patient has evidence of prior open reduction internal fixation and fusion of the tibia and fibula midpoint. There is no acute process noted per my read at 1515) Diagnostic Testing: Clinical Impression(s) from Imaging Studies Tibia/Fibula X-Ray 02/10/25 14:29 IMPRESSION: Prior right tibialORIF. No acute findings. Reading Location: [id number] Procedures Other Procedures Procedure(s): Patient was prepped in a sterile fashion. Area was incised for local injection field block. Incision was made with a 10 blade. There is a 1.2 cm laceration ration. Laceration linear. There is free flow purulent material. Able to express more purulent material. Total amount of purulent material 30 cc. Blunt dissection was undertaken with additional purulent material noted. Cavity was irrigated. Wick was placed. Because of her allergies she was treated with cephalexin and Bactrim and due to the fact she has prior history of MRSA. Discharge Plan Triage Chief Complaint: Wound ED Provider: Shaka Diaz Dx/Rx/DC Orders Clinical Impression: Abscess of axilla, left, Hepatitis C, Cellulitis of axilla, left, Chronic wound of extremity, Hx MRSA infection Instructions: ED Abscess Incision And Drainage, ED Cellulitis Prescriptions: New sulfamethoxazole-trimethoprim 800-160 mg tablet 1 tab PO BID Qty: 14 0RF cephalexin 500 mg capsule 500 mg PO Q6 Qty: 28 0RF No Action ondansetron 4 mg tablet,disintegrating 4 mg PO Q8H PRN sertraline 25 mg tablet 25 mg PO QDAY buprenorphine-naloxone 8-2 mg tablet, sublingual 2 tab sublingual QDAY naloxone 4 mg/actuation spray,non-aerosol 1 spray INTRANASAL DAILY PRN (Reason: opioid overdose) gabapentin 300 mg capsule 300 mg PO TID 30 Days Qty: 90 0RF clonidine HCl 0.1 mg tablet 0.1 mg PO Q8H PRN (Reason: vomiting) 14 Days Qty: 42 0RF hydroxyzine HCl 25 mg tablet 50 mg PO TID PRN (Reason: anxiety) 14 Days Qty: 42 0RF clonidine HCl 0.1 mg tablet 0.1 mg PO Q8H PRN (Reason: anxiety) Qty: 42 0RF gabapentin 300 mg capsule 300 mg PO TID Qty: 90 0RF hydroxyzine HCl 50 mg tablet 50 mg PO TID PRN (Reason: anxiett) Qty: 42 0RF sertraline [Zoloft] 25 mg tablet 25 mg PO DAILY Qty: 30 0RF ondansetron 4 mg tablet,disintegrating 4 mg PO Q8H PRN PRN (Reason: Nausea) Qty: 20 0RF amlodipine 2.5 mg tablet 2.5 mg PO DAILY Qty: 90 3RF Primary Care Provider: Care Physician,No Primary Referrals: Wound Health [Outside] - As soon as possible Care Physician,No Primary [Primary Care Provider] - Activity Restrictions/Additional Instructions: Follow-up with your primary care doctor. Your primary care doctor's name is on your insurance card. Which should be removed in 2 to 3 days Print Language: Samoan Disposition Disposition: Home, Self Care
[2025-02-10 15:51] VITALS: BP 106/77; PULSE 80; RESP 16; TEMP 36.8; O2SAT 98
== END 2025-02-10 15:52 | disposition home or self-care (01) ==
PROVIDERS: Emergency Provider Emergency Medicine; Referring Provider Emergency Medicine; Visit Provider Emergency Medicine
DX: L02.412 Cutaneous abscess of left axilla (principal); F17.210 Nicotine dependence, cigarettes, uncomplicated; S81.801A Unspecified open wound, right lower leg, initial encounter; B19.20 Unspecified viral hepatitis C without hepatic coma; K21.9 Gastro-esophageal reflux disease without esophagitis; Z86.14 Personal history of Methicillin resistant Staphylococcus aureus infection; X58.XXXA Exposure to other specified factors, initial encounter
CPT/HCPCS: 10060; 73590; 99282

== ENCOUNTER 2025-02-14 14:01 | Outpatient (RCR) | payer MEDICAID, SELFPAY ==
[2025-02-14 14:27] VITALS: BP 116/80; PULSE 73; RESP 18; TEMP 36.4
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
--- NOTE | 2025-02-15 09:39 | WC ---
PHOTO-LEFT AXILLA 02/14/25
--- NOTE | 2025-02-15 09:45 | WC ---
PHOTO-RIGHT WEST 02/14/25
== END 2025-02-17 23:59 | disposition home or self-care (01) ==
LOC: WC 14:01
PROVIDERS: Referring Provider Emergency Medicine; Visit Provider Surgery Plastic and Reconstructive Surgery
DX: L02.412 Cutaneous abscess of left axilla (principal); Z79.899 Other long term (current) drug therapy; F17.210 Nicotine dependence, cigarettes, uncomplicated; Z79.51 Long term (current) use of inhaled steroids; Z86.14 Personal history of Methicillin resistant Staphylococcus aureus infection; Z86.19 Personal history of other infectious and parasitic diseases
CPT/HCPCS: 99213; G0463

== ENCOUNTER 2025-04-02 16:35 | Emergency (ER) | payer MEDICAID, SELFPAY ==
[2025-04-02 16:35] VITALS: BP 135/110; PULSE 86; RESP 14; TEMP 36.8; O2SAT 98; BMI 21.5
--- NOTE | 2025-04-02 16:50 | EX.ED.DYSGE1 ---
HPI History of Present Illness Chief Complaint: [facility] Medical History Spontaneous pneumothorax MRSA (methicillin resistant Staphylococcus aureus) infection Cortez's palsy GERD (gastroesophageal reflux disease) Neuropathy Irritable bowel syndrome Hepatitis C Frequent headaches Meningococcal meningitis with acute meningococcal septicemia History of blood clots Seasonal allergies Low back pain Home Medications ?Medication ?Instructions ?Recorded ?Last Taken ?Type clonidine HCl 0.1 mg tablet 0.1 mg PO Q8H PRN anxiety #42 tabs 02/02/25 Unknown Rx gabapentin 300 mg capsule 300 mg PO TID #90 caps 02/02/25 Unknown Rx hydroxyzine HCl 50 mg tablet 50 mg PO TID PRN anxiett #42 tabs 02/02/25 Unknown Rx ondansetron 4 mg disintegrating 4 mg PO Q8H PRN PRN Nausea #20 tabs 02/02/25 Unknown Rx tablet sertraline 25 mg tablet (Zoloft) 25 mg PO DAILY #30 tabs 02/02/25 Unknown Rx cephalexin 500 mg capsule 500 mg PO Q6 #28 CAPSULES 02/10/25 Unknown Rx sulfamethoxazole 800 1 tab PO BID #14 TABLETS 02/10/25 Unknown Rx mg-trimethoprim 160 mg tablet buprenorphine 8 mg-naloxone 2 mg 3 tab sublingual QDAY 02/11/25 Unknown History sublingual tablet albuterol sulfate 90 mcg/actuation 2 puff inhalation Q4H PRN PRN 02/14/25 Unknown History aerosol inhaler wheezing budesonide 160 mcg-glycopyr 9 2 inh inhalation BID 02/14/25 Unknown History mcg-formot 4.8 mcg/actuation HFA inhaler (Breztri Aerosphere) amlodipine 2.5 mg tablet 2.5 mg PO DAILY Keep on file for 03/04/25 Unknown Rx next fill #90 tabs cephalexin 500 mg capsule 500 mg PO Q8H 10 days #30 caps 04/02/25 Unknown Rx sulfamethoxazole 800 1 tab PO BID 10 days #20 tabs 04/02/25 Unknown Rx mg-trimethoprim 160 mg tablet (Bactrim DS) Allergy/AdvReac Type Severity Reaction Status Date / Time clindamycin Allergy Hives Verified 02/14/25 14:49 methadone Allergy Swelling Verified 02/14/25 14:49 nitrofurantoin (From Allergy Hives Verified 02/14/25 14:49 Macrobid) Family History Other Alcoholism Asthma CVA (cerebral vascular accident) Cancer Depression Diabetes Heart disease High cholesterol Hypertension Myocardial infarction Surgical History H/O knee surgery History of skin graft History of bone graft S/P lobectomy of lung Social History household members: children Smoking Status: Current every day smoker tobacco type: cigarettes alcohol intake: never substance use type: does not use EXAM Physical Exam Const Vital Signs: 04/02/25 16:35 Temperature 98.3 F Temperature Source Oral Pulse Rate 86 Respiratory Rate 14 Blood Pressure 135/110 H Blood Pressure Mean 118 Pulse Ox 98 Oxygen Delivery Method Room Air MDM MDM MDM Narrative Medical decision making narrative: HISTORY OF PRESENT ILLNESS: Chief complaint: Wound 49-year-old female with past medical history significant for hepatitis C, endocarditis, opiate use disorder, vertebral osteomyelitis, multifocal pneumonia, hypertension presents concern for wound infection. I possibly have an infection on my old bone graft site. It has smell and is draining. No history of diabetes noted. No IV drug use or other inciting event REVIEW OF SYSTEMS: Pertinent positives: Wound Pertinent negatives: Fevers, vomiting PHYSICAL EXAM: Nursing triage notes reviewed, Vital signs reviewed Constitutional: please see mdm Extremities: No edema, compartments are soft the right lower extremity Neuro: Intact sensation L1-S1 dermatomal distributions. Intact 5/5 strength in hip flexion (T12-L3). Knee extension (L2-L4). Ankle dorsiflexion (L4-L5). Ankle plantar flexion (S1). Great toe extension (L5). 2+ patellar and Achilles DTRs. Skin: Approximately 10 x 3 cm linear old appearing wound to the right anterior plummer. There is yellow discharge noted. There is no warmth fluctuance, induration, or crepitus noted. MEDICAL DECISION MAKING: Chief Complaint: please see HPI External records reviewed: Reviewed prior imaging studies. Reviewed x-ray of the right tib-fib from 02/06/2025 which showed no acute findings Factors affecting care: none Social determinants of health: none History obtained from others: none Consults: none MDM Narrative: The patient was initially hemodynamically stable, afebrile and nontoxic-appearing. Exam consistent with possible infection given purulent drainage. I considered the following differential diagnosis: Necrotizing fasciitis, cellulitis, abscess There is no palpable abscess noted on exam. No clinical physical exam evidence of necrotizing fasciitis will provide antiemetics and antistrep antibiotics in the form of Bactrim and Keflex. Wound care provided. The patient and/or family, caregivers express understanding. The patient and/or family, caregivers agrees with the plan. Shared decision making: I will have a discussion with the patient and or visitors regarding risk/benefits of further testing or admission. They will be made aware of of the risk/benefits inherent in this decision they will be given the opportunity to voice understanding. Total critical care time today provided was at least 0 minutes. This excludes separately billable procedures. Critical care time (if documented) is secondary to the patient having high probability of clinically significant/life threatening deterioration in the patient's condition which required my urgent intervention. Impression: 1. Chronic lower extremity wound 2. Cellulitis Dispo: Discharge home This note was generated with [employer] dictation software. It may contain incorrect words, spelling, and punctuation that were not noted in review of the chart prior to signing. Discharge Plan Triage Chief Complaint: Wound ED Provider: Abe Gonzalez Dx/Rx/DC Orders Instructions: Cellulitis Prescriptions: New sulfamethoxazole-trimethoprim [Bactrim DS] 800-160 mg tablet 1 tab PO BID 10 Days Qty: 20 0RF cephalexin 500 mg capsule 500 mg PO Q8H 10 Days Qty: 30 0RF No Action buprenorphine-naloxone 8-2 mg tablet, sublingual 3 tab sublingual QDAY clonidine HCl 0.1 mg tablet 0.1 mg PO Q8H PRN (Reason: anxiety) Qty: 42 0RF gabapentin 300 mg capsule 300 mg PO TID Qty: 90 0RF hydroxyzine HCl 50 mg tablet 50 mg PO TID PRN (Reason: anxiett) Qty: 42 0RF sertraline [Zoloft] 25 mg tablet 25 mg PO DAILY Qty: 30 0RF ondansetron 4 mg tablet,disintegrating 4 mg PO Q8H PRN PRN (Reason: Nausea) Qty: 20 0RF sulfamethoxazole-trimethoprim 800-160 mg tablet 1 tab PO BID Qty: 14 0RF cephalexin 500 mg capsule 500 mg PO Q6 Qty: 28 0RF albuterol sulfate 90 mcg/actuation HFA aerosol inhaler 2 puff inhalation Q4H PRN PRN (Reason: wheezing) Phil Aerosphere 160-9-4.8 mcg/actuation HFA aerosol inhaler 2 inh inhalation BID amlodipine 2.5 mg tablet 2.5 mg PO DAILY Qty: 90 3RF Primary Care Provider: Dipika Langley Referrals: Dipika Langley, DO [Primary Care Provider] - Activity Restrictions/Additional Instructions: Thank you for trusting us with your care today! Please take antibiotics until course is complete. Please return to the emergency department if your symptoms change or worsen. Specifically cannot tolerate antibiotics by mouth or your symptoms change or worsen suddenly. Please follow with your primary care physician for further outpatient evaluation and management. Print Language: Albanian Disposition Disposition: Home, Self Care
[2025-04-02] MEDS: Smz/Tmp Ds Tablet 1 TABLET PO (17:29)
== END 2025-04-02 17:36 | disposition home or self-care (01) ==
LOC: ED 17:06
PROVIDERS: Emergency Provider Emergency Medicine; PCP Family Medicine; Visit Provider Emergency Medicine
DX: L03.90 Cellulitis, unspecified (principal); I10 Essential (primary) hypertension; F17.210 Nicotine dependence, cigarettes, uncomplicated; K21.9 Gastro-esophageal reflux disease without esophagitis
CPT/HCPCS: 99283

== ENCOUNTER → 2025-05-12 | Outpatient (CLI) | payer MEDICAID, SELFPAY ==
--- NOTE | 2025-05-12 13:53 | BI_ITS ---
EXAM: DIAG MAMM W/CAD, BILAT 05/12/2025 CLINICAL HISTORY: F, Age 49 y/o , ABSCESS OF AXILLA, LEFT TECHNIQUE: Procedure Code: [id number] Modality: MG Procedure: DIAG MAMM W/CAD, BILAT. COMPARISON: No prior mammogram available for comparison. History of drainage of a left breast abscess. FINDINGS: TISSUE DENSITY: There are scattered areas of fibroglandular density. Bilateral Breast Mammographic Findings: No significant masses, calcifications or other abnormalities are identified. Asymmetrical breast tissue is seen in the upper lateral aspect of the right breast most likely the site of prior abscess collection. There is a 3 mm well-defined nodule in the axillary region of the left breast most likely representing a small lymph node. BI/DIAG MAMM W/CAD, BILAT IMPRESSION: Asymmetrical breast tissue were more breast tissue is seen in the upper-outer a spect of the right breast as compared to the left side. Sonographic correlation recommended. OVERALL FINAL ASSESSMENT BI-RADS 0: INCOMPLETE - NEED ADDITIONAL IMAGING EVALUATION. RECOMMENDATION: Ultrasound Recommended Additional Recommendation none A letter with findings and recommendations will be mailed to the patient. Reading Location: [place] [id number]
--- NOTE | 2025-05-12 15:38 | US_ITS ---
PROCEDURE: BREAST LIMITED UNILATERAL 05/12/2025 REASON FOR EXAM: F, Age 49 y/o , ABNORMAL MAMMOGRAM Abnormal screening mammogram. COMPARISON: Prior mammogram done earlier in the day.. TECHNIQUE: Procedure Code: USBRSTLIMIT Modality: US Procedure: BREAST LIMITED UNILATERAL. The upper-outer quadrant of the right breast was examined with ultrasound. Dense fibroglandular tissue. No sonographic abnormality is seen. FINDINGS: No sonographic abnormality is seen. US/Breast Limited Unilateral IMPRESSION: No sonographic abnormality is seen. BI-RADS 2: BENIGN RECOMMENDATION: Routine annual follow-up in 1 Year Reading Location: [id number]
== END | disposition home or self-care (01) ==
LOC: OPBI 13:52
PROVIDERS: PCP Nurse Practitioner Family; Referring Provider Surgery Plastic and Reconstructive Surgery; Visit Provider Surgery Plastic and Reconstructive Surgery
DX: R92.8 Other abnormal and inconclusive findings on diagnostic imaging of breast (principal)
CPT/HCPCS: 77062; 76642; 77066; G0279

== ENCOUNTER → 2025-05-17 | Outpatient (CLI) | payer MEDICAID, SELFPAY ==
[2025-05-17 13:10] LABS: Hematocrit 39.8 % (37-47); Hemoglobin 12.7 g/dL (12.0-15.0); Immature Granulocytes Count 0.010 X10^3/uL (0.0-0.0); Mean Corp Hgb Conc 31.9 g/dL (32-36); Mean Corpuscular Volume 83.6 fL (81-99); Mean Platelet Vol. 10.2 fl (6.2-12.0); NRBC Flagged by Analyzer 0 % (0-5); Platelet Count 232 K/mm3 (150-450); RBC Distribution Width CV 16.1 % (11.6-14.6); RBC Distribution Width SD 49.7 fl (35.1-43.9); Red Blood Count 4.76 M/mm3 (4.2-5.4); White Blood Count 5.5 K/mm3 (4.4-11.0)
[2025-05-17 14:24] LABS: Anion Gap 8 (5-15); BUN 16 mg/dL (4-19); BUN/Creat Ratio 16.9 RATIO (10-20); Calcium,Total 9.8 mg/dL (7.6-11.0); Carbon Dioxide 29.3 mmol/L (21.0-32.0); Chloride 101 mmol/L (98-108); Glucose 98 mg/dL (70-99); Potassium 4.4 mmol/L (3.3-5.1); Pro- Brain NATRIURETIC PEPTIDE 392 pg/mL (<=450); Vitamin D,25 Hydroxy 36.7 ng/mL (30-100)
== END | disposition home or self-care (01) ==
LOC: LAB 12:37
PROVIDERS: PCP Nurse Practitioner Family; Referring Provider Nurse Practitioner Gerontology; Visit Provider Nurse Practitioner Gerontology
DX: I95.9 Hypotension, unspecified (principal); R00.2 Palpitations; R06.09 Other forms of dyspnea; Z86.79 Personal history of other diseases of the circulatory system; F19.90 Other psychoactive substance use, unspecified, uncomplicated
CPT/HCPCS: 36415; 80048; 82306; 83880; 84443; 85025

== ENCOUNTER → 2025-05-18 | Outpatient (CLI) | payer MEDICAID, SELFPAY ==
--- NOTE | 2025-05-18 13:40 | US_ITS ---
EXAM: US/Axilla - Left
== END | disposition home or self-care (01) ==
PROVIDERS: PCP Nurse Practitioner Family; Referring Provider Surgery Plastic and Reconstructive Surgery; Visit Provider Surgery Plastic and Reconstructive Surgery
DX: L02.412 Cutaneous abscess of left axilla (principal)
CPT/HCPCS: 76882

== ENCOUNTER 2025-05-27 20:24 | Emergency (ER) | payer MEDICAID, SELFPAY ==
[2025-05-27 20:24] VITALS: BP 112/88; PULSE 83; RESP 14; TEMP 36.6; O2SAT 97; BMI 21.8
[2025-05-27 23:14] VITALS: BP 133/84; PULSE 73; RESP 16; TEMP 36.8; O2SAT 96
--- NOTE | 2025-05-27 23:30 | EX.ED.DYSGE1 ---
HPI History of Present Illness Chief Complaint: Wound Check Narrative Narrative: Patient was seen and examined after presenting to ED for evaluation for her right lower extremity wound and she has previously had a skin graft that apparently became infected she is supposed to get another skin graft coming up in July she says that she feels like there is just more greenish discharge and so she wanted come in to get it evaluated. [facility] Medical History Spontaneous pneumothorax MRSA (methicillin resistant Staphylococcus aureus) infection Cortez's palsy GERD (gastroesophageal reflux disease) Neuropathy Irritable bowel syndrome Hepatitis C Frequent headaches Meningococcal meningitis with acute meningococcal septicemia History of blood clots Seasonal allergies Low back pain Home Medications ?Medication ?Instructions ?Recorded ?Last Taken ?Type hydroxyzine HCl 50 mg tablet 50 mg PO TID PRN anxiett #42 tabs 02/02/25 05/27/25 Rx ondansetron 4 mg disintegrating 4 mg PO Q8H PRN PRN Nausea #20 tabs 02/02/25 Unknown Rx tablet buprenorphine 8 mg-naloxone 2 mg 3 tab sublingual QDAY 02/11/25 Unknown History sublingual tablet budesonide 160 mcg-glycopyr 9 2 inh inhalation BID 02/14/25 Unknown History mcg-formot 4.8 mcg/actuation HFA inhaler (Breztri Aerosphere) amlodipine 2.5 mg tablet 2.5 mg PO DAILY Keep on file for 03/04/25 Unknown Rx next fill #90 tabs albuterol sulfate 90 mcg/actuation 2 puff inhalation Q4H PRN PRN 05/17/25 Unknown Rx aerosol inhaler wheezing #6.7 grams cariprazine 1.5 mg capsule 1.5 mg PO QDAY 05/17/25 Unknown History (Vraylar) clonidine HCl 0.1 mg tablet 0.1 mg PO TID anxiety 05/17/25 Unknown History gabapentin 300 mg capsule 400 mg PO TID 05/17/25 Unknown History hydrochlorothiazide 25 mg tablet 25 mg PO QAM 05/17/25 Unknown History sertraline 25 mg tablet (Zoloft) 50 mg PO DAILY 05/17/25 Unknown History cefdinir 300 mg capsule 300 mg PO BID #14 caps 05/27/25 Unknown Rx dicyclomine 10 mg capsule 10 mg PO 4X/DAY PRN PRN cramps 05/27/25 Unknown History doxycycline monohydrate 100 mg 100 mg PO BID #14 CAPSULES 05/27/25 Unknown Rx capsule gabapentin 400 mg capsule 400 mg PO TID 05/27/25 Unknown History naloxone 4 mg/actuation nasal spray 1 spray intranasal Q2M 05/27/25 Unknown History nicotine 7 mg/24 hr daily 1 patch transdermal DAILY 05/27/25 Unknown History transdermal patch Allergy/AdvReac Type Severity Reaction Status Date / Time clindamycin Allergy Hives Verified 05/27/25 20:25 methadone Allergy Swelling Verified 05/27/25 20:25 nitrofurantoin (From Allergy Hives Verified 05/27/25 20:25 Macrobid) Family History Other Alcoholism Asthma CVA (cerebral vascular accident) Cancer Depression Diabetes Heart disease High cholesterol Hypertension Myocardial infarction Surgical History H/O knee surgery History of skin graft History of bone graft S/P lobectomy of lung Social History household members: children Smoking Status: Current some day smoker tobacco type: cigarettes alcohol intake: never substance use type: does not use ROS ROS ED ROS Narrative Pertinent Positives: Green discharge from the right lower extremity skin graft site endorses previous history of IV drug use as well as hepatitis C. Pertinent Negatives: Fevers chills vomiting redness spreading anywhere numbness tingling pressure The remainder of review of systems negative unless otherwise stated in the HPI above. Systems reviewed including constitutional, psychiatric, cardiovascular, respiratory, integument, HENT, gastrointestinal. EXAM Physical Exam Narrative Exam Narrative: Patient is afebrile hemodynamically stable does not appear toxic or in distress she is normocephalic manage 320. Intact. She has intact and equal MSPs in her extremities her compartments are soft her lower extremity is nontender. He can see the skin graft site it does not have like obvious purulent drainage usually no overlying films she did have Xeroform overlying it. Intact and equal MSPs. Const Vital Signs: 05/27/25 20:24 05/27/25 23:14 05/27/25 23:18 Temperature 97.8 F 98.2 F Temperature Source Oral Oral Pulse Rate 83 73 Respiratory Rate 14 16 Respiratory Effort Normal Non-Labored Respiratory Pattern Normal Blood Pressure 112/88 H 133/84 H Blood Pressure Mean 96 100 Pulse Ox 97 96 Oxygen Delivery Method Room Air Room Air MDM MDM MDM Narrative Medical decision making narrative: Nursing notes, triage notes, available previous documentation, and vital signs were reviewed. Any discrepancies noted were addressed. Differential Diagnoses: None necrotizing process does not appear to be grossly cellulitic no overlying vesicular lesions does not seem to be a DVT Interventions: Antibiotics Given: Cefdinir and doxycycline Labs Reviewed: Offered but declined Previous Documentation Reviewed: None available or applicable at this time. ED Course: Patient presenting with concern for greenish colored discharge overlying her skin graft states she supposed to have surgery for an additional skin graft in July she does not have any other constitutional symptoms offered labs but ultimately declined I also do not think that there is an clinically indicated at this point same with imaging patient will be given cefdinir and doxycycline out of an abundance of caution given her medical conditions including what the skin graft return precautions follow-up recommendations provide patient stable for discharge home. This note was made utilizing voice recognition software. All attempts were made to correct spelling or other errors prior to note completion. However, due to the fast-paced nature of emergency medicine, some errors may still be present. Discharge Plan Triage Chief Complaint: Wound Check ED Provider: Lea Hope Dx/Rx/DC Orders Clinical Impression: Wound of right lower extremity, History of intravenous drug use, Hx of osteomyelitis Instructions: ED Wound Check (Infection) Prescriptions: New doxycycline monohydrate 100 mg capsule 100 mg PO BID Qty: 14 0RF cefdinir 300 mg capsule 300 mg PO BID Qty: 14 0RF No Action buprenorphine-naloxone 8-2 mg tablet, sublingual 3 tab sublingual QDAY clonidine HCl 0.1 mg tablet 0.1 mg PO TID gabapentin 300 mg capsule 400 mg PO TID sertraline [Zoloft] 25 mg tablet 50 mg PO DAILY hydrochlorothiazide 25 mg tablet 25 mg PO QAM Vraylar 1.5 mg capsule 1.5 mg PO QDAY albuterol sulfate 90 mcg/actuation HFA aerosol inhaler 2 puff inhalation Q4H PRN PRN (Reason: wheezing) Qty: 6.7 0RF hydroxyzine HCl 50 mg tablet 50 mg PO TID PRN (Reason: anxiett) Qty: 42 0RF ondansetron 4 mg tablet,disintegrating 4 mg PO Q8H PRN PRN (Reason: Nausea) Qty: 20 0RF gabapentin 400 mg capsule 400 mg PO TID naloxone 4 mg/actuation spray,non-aerosol 1 spray INTRANASAL Q2M Patient Comments: [NO ORIGINAL SIG] dicyclomine 10 mg capsule 10 mg PO 4X/DAY PRN PRN (Reason: cramps) nicotine 7 mg/24 hr patch 24 hour 1 patch transdermal DAILY Breztri Aerosphere 160-9-4.8 mcg/actuation HFA aerosol inhaler 2 inh inhalation BID amlodipine 2.5 mg tablet 2.5 mg PO DAILY Qty: 90 3RF Primary Care Provider: Yashira Rodriguez Referrals: Yashira Rodriguez, [facility] [Primary Care Provider, [facility]] Activity Restrictions/Additional Instructions: Be sure to follow-up with your primary care doctor and the rest of your medical care team if you are having worsening symptoms worsening drainage or redness extending up your legs please return to the hospital take the antibiotics and complete the course Print Language: Cypriot Disposition Disposition: Home, Self Care
[2025-05-27 23:41] VITALS: BP 110/78; PULSE 68; RESP 16; TEMP 36.8; O2SAT 98
== END 2025-05-27 23:48 | disposition home or self-care (01) ==
LOC: ED 23:40
PROVIDERS: Emergency Provider Specialist/Technologist Athletic Trainer; PCP Family Medicine; Visit Provider Specialist/Technologist Athletic Trainer
DX: Z48.01 Encounter for change or removal of surgical wound dressing (principal); S81.801D Unspecified open wound, right lower leg, subsequent encounter; K21.9 Gastro-esophageal reflux disease without esophagitis; K58.9 Irritable bowel syndrome, unspecified; G62.9 Polyneuropathy, unspecified; F17.210 Nicotine dependence, cigarettes, uncomplicated; Z87.39 Personal history of other diseases of the musculoskeletal system and connective tissue; Z86.14 Personal history of Methicillin resistant Staphylococcus aureus infection; Z86.19 Personal history of other infectious and parasitic diseases; Z79.899 Other long term (current) drug therapy
CPT/HCPCS: 99284

== ENCOUNTER → 2025-06-07 | Outpatient (CLI) | payer MEDICAID, SELFPAY ==
--- NOTE | 2025-06-07 12:51 | CT_ITS ---
PROCEDURE: LIMITED CHEST CT CARDIAC ONLY 06/07/2025 REASON FOR EXAM: CHEST PAIN, DYSPNEA ON EXERTION TECHNIQUE: Procedure Code: [id number] Modality: CT Procedure: LIMITED CHEST CT CARDIAC ONLY One or more dose reduction techniques were used (e.g., Automated exposure control, adjustment of the mA and/or kV according to patient size, use of iterative reconstruction technique). RADIATION DOSE SUMMARY: CTDlvol: 70.09 mGy DLP: 1146.77 mGycm COMPARISON: CT examination 09/21/2021 CT/Limited Chest CT Cardiac Only IMPRESSION: Chronic lung changes and at least mild emphysematous changes are noted. No pericardial effusion is seen. Limited imaging of the lungs demonstrates no acute process. No pleural effusion or pneumothorax is seen in visualized areas. No adenopathy is noted. The visualized upper abdomen demonstrates no significant abnormality. Reading Location: [place] [id number]
[2025-06-07 12:59] VITALS: BP 111/89; PULSE 57; RESP 18; O2SAT 98; BMI 22.0
[2025-06-07 13:37] VITALS: BP 107/55; PULSE 55
[2025-06-07] MEDS: Nitroglycerin SL (ED/IMG/CATH) 0.4 MG TABLET SL (13:37)
[2025-06-07] MEDS: 0.9% Saline Lock 10 ML Syringe IV (13:58)
[2025-06-07 13:59] VITALS: BP 107/55; PULSE 55; RESP 18; O2SAT 93
--- NOTE | 2025-06-07 17:01 | CCTA.WCONT ---
CCTA w/Cont Coronary Arteries Date of Study:: 06/07/25 CP Coronary Calcium Scoring: High-resolution Computed Tomographic imaging of the chest was performed on [06/07/25 ], with particular attention paid to the coronary arteries. Intravenous contrast agent was administered per protocol and images reconstructed and displayed. LEFT MAIN CORONARY ARTERY: Arises from the left coronary cusp with no significant stenosis present. [] LEFT ANTERIOR DESCENDING CORONARY ARTERY: Arises from the left main coronary artery and courses towards the apex of the ventricle. No significant stenosis is noted in any of the vessels. [] LEFT CIRCUMFLEX CORONARY ARTERY: Nondominant vessel with 2 obtuse marginal branches with no significant stenosis present. [] RIGHT CORONARY ARTERY: Dominant right coronary artery arising from the right coronary cusp giving off an acute marginal and distally bifurcated to posterior descending artery and posterolateral vessel with no significant stenosis or atherosclerotic plaquing. Calcium Scoring Interpretation: Different methods to categorize the overall amount of coronary plaque. Overall amount CAC SIS Visual of coronary plaque P1 Mild -100 <2 1-2 vessels with mild amount of plaque P2 Moderate 101-300 3-4 1-2 vessels with moderate amount, 3 vessels with mild amount of plaque P3 Severe 301-999 5-7 3 vessels with moderate amount, 1 vessel with severe amount of plaque P4 Extensive >1000 >8 2-3 vessels with severe amount of plaque Conclusion: CT angiogram demonstrating no significant atherosclerotic plaquing or stenosis.
== END | disposition home or self-care (01) ==
LOC: CT 12:48
PROVIDERS: PCP Family Medicine; Referring Provider Internal Medicine Cardiovascular Disease; Visit Provider Internal Medicine Cardiovascular Disease
DX: R00.2 Palpitations (principal); R07.9 Chest pain, unspecified; R06.09 Other forms of dyspnea; Z86.79 Personal history of other diseases of the circulatory system; I95.9 Hypotension, unspecified
CPT/HCPCS: 75574; 76380; Q9967

== ENCOUNTER → 2025-07-04 | Outpatient (CLI) | payer MEDICAID, SELFPAY ==
[2025-07-04 17:04] LABS: Hematocrit 47.1 % (37-47); Hemoglobin 15.1 g/dL (12.0-15.0); Immature Granulocytes Count 0.020 X10^3/uL (0.0-0.0); Mean Corp Hgb Conc 32.1 g/dL (32-36); Mean Corpuscular Volume 85.0 fL (81-99); Mean Platelet Vol. 9.7 fl (6.2-12.0); NRBC Flagged by Analyzer 0 % (0-5); Platelet Count 265 K/mm3 (150-450); RBC Distribution Width CV 14.0 % (11.6-14.6); RBC Distribution Width SD 43.3 fl (35.1-43.9); Red Blood Count 5.54 M/mm3 (4.2-5.4); White Blood Count 5.6 K/mm3 (4.4-11.0)
[2025-07-04 17:50] LABS: AST(SGOT) 25 U/L (<=31); Alanine Aminotransfer ALT/SGPT 15 U/L (<=34); Albumin, Serum 4.3 g/dL (3.5-5.0); Alkaline Phosphatase 65 U/L (35-104); Anion Gap 9 (5-15); BUN 12 mg/dL (4-19); BUN/Creat Ratio 13.5 RATIO (10-20); Calcium,Total 9.4 mg/dL (7.6-11.0); Carbon Dioxide 34.1 mmol/L (21.0-32.0); Chloride 94 mmol/L (98-108); Cholesterol 202 mg/dL (<=200); Ferritin 19 ng/mL (22-378); Globulin 3.7 g/dL (2.2-4.2); Glucose 93 mg/dL (70-99); Low Density Lipoprotein Calc. 133 mg/dL; Magnesium 2.0 mg/dL (1.5-2.2); Potassium 3.5 mmol/L (3.3-5.1); Triglycerides 75 mg/dL; Very Low Density Lipoprotein 15 mg/dL (5-40); Vitamin B12 646 pg/mL (180-914); cholesterol:hdl ratio screen 3.65
== END | disposition home or self-care (01) ==
LOC: LAB 15:58
PROVIDERS: Internal Medicine Cardiovascular Disease; PCP Family Medicine; Referring Provider Family Medicine; Visit Provider Family Medicine
DX: R25.1 Tremor, unspecified (principal); Z86.79 Personal history of other diseases of the circulatory system
CPT/HCPCS: 36415; 80053; 82607; 80061; 82728; 83735; 85025